=== PATIENT | female | born 1950 | race Caucasian/White ===

== ENCOUNTER 2021-01-27 11:58 | Observation (INO) | payer MEDICARE, OTHER, SELFPAY ==
[2021-01-27] VITALS (10 sets, daily range): BP systolic 118–164; BP diastolic 66–75; PULSE 62–76; RESP 16–22; TEMP 36.4–36.9; O2SAT 95–97; BMI 27.1; BMI 25.1
--- NOTE | 2021-01-27 12:47 | EKG12_ITS ---
Test Reason : CP Blood Pressure : / mmHG Vent. Rate : 069 BPM Atrial Rate : 069 BPM P-R Int : 160 ms QRS Dur : 088 ms QT Int : 396 ms P-R-T Axes : 032 -15 089 degrees QTc Int : 424 ms Normal sinus rhythm Left ventricular hypertrophy with repolarization abnormality Abnormal ECG Confirmed by JOSE HOYOS, NERISSA ([id number]), sound editor SHANNAN QUINONEZ ([id number]) on 01/28/2021 8:57:24 AM Referred By: Confirmed By:NERISSA GARCIA MD
--- NOTE | 2021-01-27 12:55 | RAD_ITS ---
STUDY: X-RAY CHEST REASON FOR EXAM: Female, 70 years old. Chest pain TECHNIQUE: Single AP portable view of the chest. COMPARISON: None. FINDINGS: EKG electrodes are seen. The lungs are clear and expanded. There is no demonstrated pleural abnormality. Normal size heart. Normal mediastinum and mariaa. Normal visualized pulmonary arteries. There is atherosclerotic calcification of the aortic arch with tortuosity. Normal visualized thoracic spine. Normal visualized ribs, clavicles, and shoulders. There is no demonstrated abnormality of the visualized soft tissue structures of the upper abdomen. RAD/Chest 1 View (Portable) IMPRESSION: The lungs are clear. Electronically Signed: Alexey Kelly MD at 13:06 EDT , Service support ,
[2021-01-27 13:03] LABS: Absolute Lymphocyte Count 1.55 X10^3/uL (0.83-4.51); Absolute Neutrophil Count 5.3 X10^3/uL (2.0-7.7); Basophil# 0.02 X10^3/uL; Basophil% 0.3 % (0-1); Eosinophil# 0.29 X10^3/uL; Eosinophils% 3.8 % (0-5); Hematocrit 43.4 % (37-47); Hemoglobin 14.2 g/dL (12.0-15.0); Lymphocyte # 1.55 X10^3/ul (0.83-4.51); Lymphocyte % 20.1 % (19-41); Mean Corp Hgb Conc 32.7 g/dL (32-36); Mean Corpuscular Hgb 31.1 pg (27.0-32.0); Mean Corpuscular Volume 95.2 fL (81-99); Mean Platelet Vol. 10.1 fl (6.2-12.0); Monocyte% 6.5 % (0-10); NRBC Flagged by Analyzer 0 % (0-5); Neutrophil # 5.31 X10^3/uL (2.7-7.7); Neutrophil % 68.9 % (47-70); Platelet Count 414 K/mm3 (150-450); RBC Distribution Width CV 12.2 % (11.6-14.6); RBC Distribution Width SD 42.5 fl (35.1-43.9); Red Blood Count 4.56 M/mm3 (4.2-5.4); White Blood Count 7.7 K/mm3 (4.4-11.0)
--- NOTE | 2021-01-27 13:15 | EDS_ITS ---
HPI History of Present Illness Chief Complaint: Chest Pain Informant: patient and spouse/S.O. Narrative Narrative: Patient was out raking the yard of [employer]. She states she felt normal when she went out there. While she was raking she got a feeling on the right side of her chest just right of the sternum. She states it felt like somebody was standing on her. She got lightheaded but did not fall. She was a little short of breath. She was nauseated but did not quite throw up. She was slightly diaphoretic. She still has a little discomfort there but the other symptoms are gone. She denies ever having this before. She did have a stress test but it was approximately 18 years ago. No family history of heart disease. She has never been a smoker. She does have high blood pressure and cholesterol. Patient did drive to [place] and back about 2 weeks ago but no other known history for pulmonary embolus. She has no leg pain or swelling. She has never had back pain. [facility] Medical History (Updated 01/27/21 @ 16:15 by CAROL Hutchinson) Depression Hyperlipidemia Hypertension Multiple sclerosis Overactive bladder Home Medications acetaminophen 1,000 mg PO QHS 01/27/21 [History Last Taken 01/26/21] ergocalciferol (vitamin D2) 1,250 mcg PO SUWE 01/27/21 [History Last Taken 01/25/21] fenofibrate 160 mg PO DAILY 01/27/21 [History Last Taken 01/27/21] gabapentin 300 mg PO BID 01/27/21 [History Last Taken 01/27/21] levothyroxine 100 mcg PO DAILY 01/27/21 [History Last Taken 01/27/21] losartan 25 mg PO DAILY 01/27/21 [History Last Taken 01/26/21] oxybutynin chloride 5 mg PO DAILY 01/27/21 [History Last Taken 01/26/21] venlafaxine 150 mg PO DAILY 01/27/21 [History Last Taken 01/27/21] Allergy/AdvReac Type Severity Reaction Status Date / Time No Known Allergies Allergy Verified 01/27/21 12:04 Surgical History (Updated 01/27/21 @ 16:13 by CAROL Hutchinson) History of appendectomy History of hysterectomy History of left hip hemiarthroplasty History of tonsillectomy and adenoidectomy Social History (Updated 01/27/21 @ 16:13 by Karolina Neri CARB[facility] GRINDER-C) Smoking Status: Never smoker alcohol intake: current alcohol intake frequency: 0-2 drinks per day Alcohol type: beer substance use type: does not use ROS ROS ED Constitutional Constitutional ED: Denies fever(s) Eyes Eyes: Denies change in vision ENT ENT ED: Denies rhinorrhea or sore throat Cardiovascular Cardiovascular: Reports as per HPI and chest pain; Denies palpitations Respiratory/Chest Respiratory/Chest: Reports dyspnea; Denies cough or sputum Gastrointestinal Gastrointestinal: Reports nausea; Denies abdominal pain or vomiting Genitourinary Genitourinary ED: Denies dysuria or hematuria Musculoskeletal Musculoskeletal: Denies arthralgias or myalgias Neurologic Neurologic: Denies headache(s) or weakness Psychiatric Psychiatric: Denies depression Endocrine Endocrinology: Denies polydipsia Hematologic/Lymphatic Hematologic/Lymphatic: Denies easy bleeding or easy bruising Allergic/Immunologic Allergic/Immunologic ED: Denies urticaria EXAM Physical Exam Const Vital Signs: 01/27/21 12:01 01/27/21 13:37 01/27/21 13:39 Temperature 98.5 F Temperature Source Temporal Pulse Rate 72 67 67 Respiratory Rate 22 H 18 Blood Pressure 164/75 H 155/74 H Blood Pressure Mean 104 Pulse Ox 95 97 Oxygen Delivery Method Room Air Room Air 01/27/21 13:43 01/27/21 14:21 01/27/21 16:49 Temperature Temperature Source Pulse Rate 73 64 66 Respiratory Rate 19 H 19 H Blood Pressure 118/67 126/67 H 137/71 H Blood Pressure Mean 86 93 Pulse Ox 96 97 Oxygen Delivery Method Room Air Room Air Positive well nourished and well developed General Appearance ED: well developed and NAD HEENT normocephalic and atraumatic Eyes PERRL and EOMs intact bilaterally Neck no lymphadenopathy and supple Chest Wall inspection of chest normal Chest Narrative: She does have mild tenderness but it does not fully reproduce symptoms. No skin changes. Chest: tenderness Resp normal respiratory effort Resp Narrative: No pain with a deep breath. Effort and Inspection: Negative for pain with movement Auscultation: Negative for rales, rhonchi or wheezes Cardio regular rate and regular rhythm GI normal to inspection, nondistended, normoactive bowel sounds, soft to palpation and non-tender Back/Spine no CVA tenderness Extremity normal to inspection Extremity Narrative: There is no swelling edema tenderness or distended veins. No asymmetry. She has excellent and equal pulses at both posterior tibial and radial pulses. General Extremety ED: Negative for edema, pulses abnormal or tenderness General Extremity: Negative for edema or pulses abnormal Neuro oriented x3 Sensorium / Orientation: awake and alert Psych Psych Narrative: Mild flat affect. Skin no rashes or lesions noted Heart Score History: Highly Suspicious ECG: Nonspecific Repolarization Age: >/= 65 years Risk Factors: 1 or 2 Risk Factors Troponin: </= Normal Limit Score: 6 MDM MDM MDM Narrative Medical decision making narrative: Including CBC and troponin are negative. D- dimer was negative. Electrolytes show mild elevation in the creatinine but the patient is given IV fluids. I went and talked to the patient. She was feeling better after nitro. At this point her states that her words were slurred when this happened. This was not shared originally. When I asked him to describe this more he stated that paramedics would ask her questions and she would take longer than normal to answer. The answers were, in fact, clear and correct though. Therefore I do not think this is slurring of the words. He states that she was not pale but she did look like she might almost pass out. He verified she has never had symptoms like this before. With this possible neurologic episode and the pain we did scan her chest. There is no sign of dissection. Her D-dimer was negative already but we were looking for possible other findings. CT of her head was also negative. Patient does have a high heart score. She gets 2 points for a very concerning history of chest pain nausea diaphoresis and dyspnea. She has nonspecific EKG changes with slight repolarization abnormalities. She has a history of cholesterol and high blood pressure even though she is not on meds for cholesterol. She is also over the age of 65. I have paged the hospitalist to discuss admission. Lab Data Attestation: I reviewed the patient's lab results. Labs: Laboratory Results - last 24 hr 01/27/21 01/27/21 01/27/21 13:04 Unknown Unknown WBC 7.7 RBC 4.56 Hgb 14.2 Hct 43.4 MCV 95.2 MCH 31.1 MCHC 32.7 RDW Std Deviation 42.5 RDW Coeff of Roberto 12.2 Plt Count 414 MPV 10.1 Immature Gran % (Auto) 0.400 Neut % (Auto) 68.9 Lymph % (Auto) 20.1 [place] % (Auto) 6.5 Eos % (Auto) 3.8 Baso % (Auto) 0.3 Absolute Neuts (auto) 5.3 Absolute Lymphs (auto) 1.55 Nucleated RBC % 0 D-Dimer Quant (PE/DVT) 0.46 Sodium 140 Potassium 3.6 Chloride 105 Carbon Dioxide 27.0 Anion Gap 8 BUN 20 H Creatinine 1.44 H Estim Creat Clear Calc 28.34 Est GFR (MDRD) Af Amer 46 L Est GFR (MDRD) Non-Af 38 L BUN/Creatinine Ratio 13.9 Glucose 95 Calcium 9.8 Troponin I High Sens 5 Radiography Diagnostic Testing: Clinical Impression(s) from Imaging Studies Chest X-Ray 01/27/21 12:55 IMPRESSION: The lungs are clear. Electronically Signed: Alexey Kelly MD at 13:06 EDT , Service support , Brain CT 01/27/21 14:49 IMPRESSION: Chronic involutional changes of the brain. Electronically Signed: Alexey Kelly MD at 15:28 EDT , Service support , Chest CTA 01/27/21 15:04 IMPRESSION: Hyperinflation. Emphysematous changes. Linear scarring at the lung bases. Electronically Signed: Alexey Kelly MD at 15:30 EDT , Service support , EKG Initial EKG: Comments: EKG done for chest pain read by me shows normal sinus rhythm with overall rate of 69. Mild LVH change. No acute ST elevation or depression. NM interval, QRS duration and QTc are normal. I looked and found no old EKG for comparison. Discharge Plan Dx/Rx/DC Orders Clinical Impression: Chest pain Disposition Disposition: Acute Care Hospital [facility]
[2021-01-27 13:21] LABS: Anion Gap 8 (5-15); BUN 20 mg/dL (7-18); BUN/Creat Ratio 13.9 RATIO (10-20); Calcium,Total 9.8 mg/dL (8.5-10.1); Chloride 105 mmol/L (98-107); Creatinine, Serum 1.44 mg/dL (0.55-1.02); EST Glomerular Filtration Rate 38 mL/min (>60); Est Glom Filt Rate - Afr Amer 46 mL/min (>60); Estimated Creatinine Clearance 28.34 ml/min; Glucose 95 mg/dL (74-106); Potassium 3.6 mmol/L (3.5-5.1); Sodium Level 140 mmol/L (136-145); Troponin-I HS 5 pg/mL (3.0-54.0)
[2021-01-27 13:22] LABS: D-Dimer Quantitative (DVT/PE) 0.46 FEU/ug/m (0.27-0.49)
[2021-01-27] MEDS: Nitroglycerin SL (ED/IMG/CATH) 0.4 MG TABLET SL ×2 (13:37→13:43)
--- NOTE | 2021-01-27 14:49 | CT_ITS ---
STUDY: CT BRAIN WITHOUT CONTRAST REASON FOR EXAM: Female, 70 years old. Confusion RADIATION DOSAGE (If Supplied By Facility): CTDIvol = ( 44.99 ) mGy, DLP = ( 796.11 ) mGycm TECHNIQUE: Transaxial CT imaging of the brain was performed without administration of intravenous contrast material. Individualized dose optimization techniques were used for this CT. COMPARISON: No relevant priors. FINDINGS: Normal soft tissue structures. Normal calvarium. Normal size ventricles and extra-axial spaces for the patient''s age. Normal white matter tracts of the cerebral hemispheres. Small lacunar infarct in the right basal ganglion. The age cannot be determined on this examination. Normal brainstem. Normal cerebellum. There is no intracranial hemorrhage. There are no findings of an acute ischemic infarction. Atherosclerotic plaque formation of the vertebral arteries and cavernous portions of the internal carotid arteries bilaterally. Normal visualized paranasal sinuses. CT/Brain/Head without Contrast IMPRESSION: Chronic involutional changes of the brain. Electronically Signed: Alexey Kelly MD at 15:28 EDT , Service support ,
--- NOTE | 2021-01-27 15:04 | CT_ITS ---
STUDY: CTA CHEST REASON FOR EXAM: Female, 70 years old. Chest pain RADIATION DOSAGE (If Supplied By Facility): CTDIvol = ( 10.74 ) mGy, DLP = ( 438.29 ) mGycm TECHNIQUE: The examination was performed with the intravenous administration of IV 100mL Isovue-370. Post-processing of the angiographic images was performed, with multiplanar reformation and 3D reconstruction. Individualized dose optimization techniques were used for this CT. COMPARISON: Comparison is made with prior chest radiograph done earlier in the day. FINDINGS: Normal enhancement of the main pulmonary artery and right and left pulmonary arteries. Normal enhancement of the bilateral peripheral pulmonary arteries. There is no demonstrated pulmonary embolism. Normal thoracic aorta and visualized great vessels. There is no demonstrated aortic dissection. There are calcifications of the coronary arteries. Normal mediastinum. Normal hilar regions. Normal visualized trachea and bronchi. The lungs are well expanded. Mild degree of bladder at the site of this changes more prominent in the upper lobes with the small subpleural blebs. Increased markings at the lung bases suggestive of scarring. Small bulla are seen at the lung bases. Normal pleura. Normal chest wall structures. There are degenerative changes of thoracic spine. Gallstones. CT/CTA Chest W/WO Contrast IMPRESSION: Hyperinflation. Emphysematous changes. Linear scarring at the lung bases. Electronically Signed: Alexey Kelly MD at 15:30 EDT , Service support ,
--- NOTE | 2021-01-27 16:10 | PCM.HP.STD ---
Documented by User: CAROL Hutchinson 01/27/21 16:31 HPI - General General Date of Admission: 01/27/21 Date of Service: 01/27/21 Chief Complaint: Chest pain HPI Narrative SOREN MCDANIELS, is a 70 F who presents with complaints of chest pain. Patient states that she was raking leaves when she began to have a pressure sensation over her right chest that felt like somebody was stepping on her chest. Patient denies sharp shooting pains or radiation to arm or jaw. Patient states that she has not had an episode like this prior. Patient reports a medical history of MS, hypertension, hyperlipidemia. Patient denies fever, chills, shortness of breath, cough, vomiting, diarrhea, constipation. Patient reports diaphoresis and nausea with onset of chest pain. [facility] Medical History (Updated 01/27/21 @ 16:15 by CAROL Hutchinson) Depression Hyperlipidemia Hypertension Multiple sclerosis Overactive bladder Home Medications acetaminophen 1,000 mg PO QHS 01/27/21 [History Last Taken 01/26/21] ergocalciferol (vitamin D2) 1,250 mcg PO SUWE 01/27/21 [History Last Taken 01/25/21] fenofibrate 160 mg PO DAILY 01/27/21 [History Last Taken 01/27/21] gabapentin 300 mg PO BID 01/27/21 [History Last Taken 01/27/21] levothyroxine 100 mcg PO DAILY 01/27/21 [History Last Taken 01/27/21] losartan 25 mg PO DAILY 01/27/21 [History Last Taken 01/26/21] oxybutynin chloride 5 mg PO DAILY 01/27/21 [History Last Taken 01/26/21] venlafaxine 150 mg PO DAILY 01/27/21 [History Last Taken 01/27/21] Allergy/AdvReac Type Severity Reaction Status Date / Time No Known Allergies Allergy Verified 01/27/21 12:04 Surgical History (Updated 01/27/21 @ 16:13 by CAROL Hutchinson) History of appendectomy History of hysterectomy History of left hip hemiarthroplasty History of tonsillectomy and adenoidectomy Social History (Updated 01/27/21 @ 16:13 by CAROL Hutchinson) Smoking Status: Never smoker alcohol intake: current alcohol intake frequency: 0-2 drinks per day Alcohol type: beer substance use type: does not use ROS Constitutional Constitutional: Denies anorexia, chills, fatigue, malaise or weakness Cardiovascular Cardiovascular: Reports chest pain and dyspnea on exertion; Denies edema, palpitations or syncope Respiratory/Chest Respiratory/Chest: Denies cough, shortness of breath at rest or shortness of breath with exertion Gastrointestinal Gastrointestinal: Reports nausea; Denies abdominal pain, constipation, diarrhea or vomiting Genitourinary Genitourinary: Denies dysuria Musculoskeletal Musculoskeletal: Denies back pain, extremity pain, joint pain or joint stiffness Integumentary Integumentary: Denies dry skin Neurologic Neurologic: Denies abnormal gait, abnormal speech, confusion or dizziness Psychiatric Psychiatric: Denies anxiety or depression Endocrine Endocrinology: Denies change in body appearance Hematologic/Lymphatic Hematologic/Lymphatic: Denies anemia, easy bleeding or easy bruising Vital Signs Vital Signs Vital Signs: 01/27/21 12:01 01/27/21 13:37 01/27/21 13:39 Temperature 98.5 F Temperature Source Temporal Pulse Rate 72 67 67 Respiratory Rate 22 H 18 Blood Pressure 164/75 H 155/74 H Blood Pressure Mean 104 Pulse Ox 95 97 Oxygen Delivery Method Room Air Room Air 01/27/21 13:43 01/27/21 14:21 Temperature Temperature Source Pulse Rate 73 64 Respiratory Rate 19 H Blood Pressure 118/67 126/67 H Blood Pressure Mean 86 Pulse Ox 96 Oxygen Delivery Method Room Air Weight Weight: 148 lb 9.465 oz Body Mass Index (BMI) 27.1 Physical Exam Const alert, oriented x3 and no apparent distress General Appearance: cooperative HEENT normocephalic and head/scalp atraumatic Eyes conjunctivae normal and no scleral icterus Neck full ROM and supple General: trachea midline Resp normal respiratory effort, normal air movement and clear to auscultation bilaterally Cardio regular rate, regular rhythm, S1 normal heart sound, S2 normal heart sound and peripheral pulses 2+ throughout GI normal to inspection, nondistended, normoactive bowel sounds, soft to palpation and non-tender Extremity normal capillary refill and no clubbing, cyanosis or edema General Extremity: no tenderness to palpation of joints or extremities Skin General Skin Exam: no breakdown and turgor normal Lesions: no lesions Rashes: no rashes Neuro oriented x3, moves all extremities, no focal motor deficits and no sensory deficits noted Speech: speech normal Motor Exam: Negative for general weakness Psych thought process normal, cooperative and affect normal Results Lab / Micro Data Result Diagrams: 01/27/21 Unknown 01/27/21 Unknown Labs: Laboratory Results - last 24 hr 01/27/21 13:04: D-Dimer Quant (PE/DVT) 0.46 01/27/21 : WBC 7.7, RBC 4.56, Hgb 14.2, Hct 43.4, MCV 95.2, MCH 31.1, MCHC 32.7, RDW Std Deviation 42.5, RDW Coeff of Roberto 12.2, Plt Count 414, MPV 10.1, Immature Gran % (Auto) 0.400, Neut % (Auto) 68.9, Lymph % (Auto) 20.1, [place] % (Auto) 6.5, Eos % (Auto) 3.8, Baso % (Auto) 0.3, Absolute Neuts (auto) 5.3, Absolute Lymphs (auto) 1.55, Nucleated RBC % 0 01/27/21 : Sodium 140, Potassium 3.6, Chloride 105, Carbon Dioxide 27.0, Anion Gap 8, BUN 20 H, Creatinine 1.44 H, Estim Creat Clear Calc 28.34, Est GFR (MDRD) Af Amer 46 L, Est GFR (MDRD) Non-Af 38 L, BUN/Creatinine Ratio 13.9, Glucose 95, Calcium 9.8, Troponin I High Sens 5 Radiology Impression Chest X-Ray 01/27/21 12:55 IMPRESSION: The lungs are clear. Electronically Signed: Alexey Kelly MD at 13:06 EDT , Service support , Brain CT 01/27/21 14:49 IMPRESSION: Chronic involutional changes of the brain. Electronically Signed: Alexey Kelly MD at 15:28 EDT , Service support , Chest CTA 01/27/21 15:04 IMPRESSION: Hyperinflation. Emphysematous changes. Linear scarring at the lung bases. Electronically Signed: Alexey Kelly MD at 15:30 EDT , Service support , Assessment & Plan Assessment/Plan (1) Chest pain: QUALIFIERS: Chest pain type: unspecified Qualified Code(s): R07.9 - Chest pain, unspecified PLAN: 1. Chest pain -Admit to PCU for cardiac monitoring. VICKI score 1 -Cardiac diet ordered, n.p.o. at midnight for pending stress test -Daily weights -Trend cardiac enzymes initial level 5 -Stress test ordered for a.m. -Oxygen per protocol -CBC, BMP, lipid profile, magnesium, phosphorus ordered for a.m. -As needed nitroglycerin ordered as well as as needed morphine and Zofran Will continue all of patient's home medications related to chronic diseases DVT prophylaxis-not indicated encourage ambulation This patient was seen by CAROL Hutchinson under the supervision of Dr. Haile. Documented by User: Dr. Minor Haile DO 01/27/21 16:38 [facility] Medical History (Updated 01/27/21 @ 16:15 by CAROL Hutchinson) Depression Hyperlipidemia Hypertension Multiple sclerosis Overactive bladder Home Medications acetaminophen 1,000 mg PO QHS 01/27/21 [History Last Taken 01/26/21] ergocalciferol (vitamin D2) 1,250 mcg PO SUWE 01/27/21 [History Last Taken 01/25/21] fenofibrate 160 mg PO DAILY 01/27/21 [History Last Taken 01/27/21] gabapentin 300 mg PO BID 01/27/21 [History Last Taken 01/27/21] levothyroxine 100 mcg PO DAILY 01/27/21 [History Last Taken 01/27/21] losartan 25 mg PO DAILY 01/27/21 [History Last Taken 01/26/21] oxybutynin chloride 5 mg PO DAILY 01/27/21 [History Last Taken 01/26/21] venlafaxine 150 mg PO DAILY 01/27/21 [History Last Taken 01/27/21] Allergy/AdvReac Type Severity Reaction Status Date / Time No Known Allergies Allergy Verified 01/27/21 12:04 Surgical History (Updated 01/27/21 @ 16:13 by Karolina Neri NP-C) History of appendectomy History of hysterectomy History of left hip hemiarthroplasty History of tonsillectomy and adenoidectomy Social History (Updated 01/27/21 @ 16:13 by Karolina Neri NP-C) Smoking Status: Never smoker alcohol intake: current alcohol intake frequency: 0-2 drinks per day Alcohol type: beer substance use type: does not use Results Lab / Micro Data Result Diagrams: 01/27/21 Unknown 01/27/21 Unknown Charges/Coding Addendum Addendum: Patient was seen and examined today independently of Bren Neri, she came to the emergency room at [facility] with complaints of substernal chest discomfort that she described as pressure-like in nature, is accompanied by nausea, it did not radiate into her jaw or down her arm. Patient states she was raking [place]ickory nuts and leaves today during the time of her discomfort. Patient states the discomfort lasted for approximately 1 hour. Patient has no history of coronary artery disease. On examination she appeared in good health and spirits, she does not appear to be in any distress. Vital signs as documented. Skin warm and dry and without overt rashes. Neck without JVD, thyroid appears normal, trachea is midline, neck is supple. Lungs clear, normal air movement was noted. Heart exam notable for regular rhythm, normal sounds and absence of murmurs, rubs or gallops. Abdomen unremarkable and without evidence of organomegaly, masses, or abdominal aortic enlargement, bowel sounds are present in all 4 quadrants, no abdominal tenderness was noted. Extremities nonedematous, no cyanosis was noted, no clubbing was noted. Neuro: Cranial nerves II through XII are grossly intact, no focal motor deficits were noted, sensation to light touch and pinprick is intact, motor exam 5/5 throughout. Psych: Patient is alert and oriented x3, she does not appear anxious or depressed, she does not appear agitated. Patient's labs were unremarkable including her troponin, EKG showed a normal sinus rhythm without evidence of injury pattern. Patient's chest x-ray was unremarkable, patient had a CTA of her chest which showed emphysematous changes with linear scarring at the lung bases. Patient will be placed in observation status on PCU, serial cardiac enzymes will be obtained, if these remain normal she will undergo a resting pharmacological nuclear stress test tomorrow. I have reviewed Bren Neri's history and physical including her medical assessment and plan of care and endorse it. Visit Charges OBSV E&M: 44100 Initial observation care L3
--- NOTE | 2021-01-27 17:12 | NURSING ---
PCU OBS YESSENIA NEWMAN
--- NOTE | 2021-01-27 17:25 | EKG12_ITS ---
Test Reason : AM EKG Blood Pressure : / mmHG Vent. Rate : 059 BPM Atrial Rate : 059 BPM P-R Int : 180 ms QRS Dur : 082 ms QT Int : 440 ms P-R-T Axes : 049 -18 123 degrees QTc Int : 435 ms Sinus bradycardia Nonspecific ST and T wave abnormality Abnormal ECG When compared with ECG of 27-JAN-2021 19:00, MANUAL COMPARISON REQUIRED, DATA IS UNCONFIRMED Confirmed by JOSE HOYOS, NERISSA ([id number]), newspaper photo editor DIONY JORGE ([id number]) on 01/29/2021 7:47:57 AM Referred By: YESSENIA Confirmed By:NERISSA GARCIA MD
[2021-01-27] MEDS: 0.9% Normal Saline 1,000 ML 75 ML IV (18:12)
--- NOTE | 2021-01-27 18:32 | EKG12_ITS ---
Test Reason : CP ADMIT Blood Pressure : / mmHG Vent. Rate : 063 BPM Atrial Rate : 063 BPM P-R Int : 180 ms QRS Dur : 080 ms QT Int : 424 ms P-R-T Axes : 030 -18 069 degrees QTc Int : 433 ms Normal sinus rhythm Nonspecific ST and T wave abnormality Abnormal ECG When compared with ECG of 27-JAN-2021 12:13, MANUAL COMPARISON REQUIRED, DATA IS UNCONFIRMED Confirmed by JOSE HOYOS, NERISSA ([id number]), film or videotape editor DIONY JORGE ([id number]) on 01/29/2021 7:48:38 AM Referred By: YESSENIA Confirmed By:NERISSA GARCIA MD
[2021-01-27 18:57] LABS: Troponin-I HS 8 pg/mL (3.0-54.0)
[2021-01-27 20:32] LABS: Troponin-I HS 7 pg/mL (3.0-54.0)
[2021-01-27] MEDS: Gabapentin 300 MG Capsule PO (20:51)
[2021-01-27] MEDS: Acetaminophen 500 MG Tablet 1000 MG PO (20:51)
[2021-01-28] VITALS (8 sets, daily range): BP systolic 150–165; BP diastolic 67–78; PULSE 55–76; RESP 16–18; TEMP 36.5–36.8; O2SAT 95–96
--- NOTE | 2021-01-28 01:54 | PCS.PANDOC ---
PANDEMIC DOCUMENTATION INITIATED: Date: 11/24/2020 Time: 190
[2021-01-28] MEDS: Levothyroxine 100 MCG Tablet PO (05:44)
[2021-01-28] MEDS: Losartan Potassium 25 MG Tablet PO (05:44)
[2021-01-28 06:39] LABS: Absolute Lymphocyte Count 1.65 X10^3/uL (0.83-4.51); Basophil# 0.02 X10^3/uL; Basophil% 0.4 % (0-1); Eosinophil# 0.26 X10^3/uL; Eosinophils% 4.7 % (0-5); Hematocrit 36.5 % (37-47); Hemoglobin 12.2 g/dL (12.0-15.0); Lymphocyte # 1.65 X10^3/ul (0.83-4.51); Lymphocyte % 30.1 % (19-41); Mean Corp Hgb Conc 33.4 g/dL (32-36); Mean Corpuscular Hgb 31.4 pg (27.0-32.0); Mean Corpuscular Volume 93.8 fL (81-99); Mean Platelet Vol. 9.6 fl (6.2-12.0); Monocyte% 9.1 % (0-10); NRBC Flagged by Analyzer 0 % (0-5); Neutrophil # 3.04 X10^3/uL (2.7-7.7); Neutrophil % 55.3 % (47-70); Platelet Count 333 K/mm3 (150-450); RBC Distribution Width CV 12.4 % (11.6-14.6); RBC Distribution Width SD 43.1 fl (35.1-43.9); Red Blood Count 3.89 M/mm3 (4.2-5.4); White Blood Count 5.5 K/mm3 (4.4-11.0)
[2021-01-28 07:26] LABS: Anion Gap 7 (5-15); BUN 15 mg/dL (7-18); Calcium,Total 8.2 mg/dL (8.5-10.1); Chloride 112 mmol/L (98-107); Cholesterol 153 mg/dL (200); EST Glomerular Filtration Rate 58 mL/min (>60); Est Glom Filt Rate - Afr Amer 70 mL/min (>60); Estimated Creatinine Clearance 40.81 ml/min; Glucose 81 mg/dL (74-106); High Density Lipoprotein 51 mg/dL; Magnesium 2.3 mg/dL (1.6-2.6); Phosphorus 2.2 mg/dL (2.5-4.9); Potassium 3.5 mmol/L (3.5-5.1); Sodium Level 143 mmol/L (136-145); Triglycerides 69 mg/dL; Very Low Density Lipoprotein 14 mg/dL (5-40)
[2021-01-28] MEDS: Fenofibrate 145 MG Tablet PO (10:43)
[2021-01-28] MEDS: Tolterodine Tartrate 2 MG CAP.SA PO (10:43)
[2021-01-28] MEDS: Venlafaxine XR 150 MG Capsule PO (10:43)
[2021-01-28] MEDS: Gabapentin 300 MG Capsule PO (10:43)
[2021-01-28] MEDS: Ergocalciferol 1.25 MG (50, 000 UNIT) Capsule PO (10:43)
--- NOTE | 2021-01-28 13:18 | STRESSREP_ITS ---
Stress Test Report Exercise stress test. 70-year-old lady with a history of chest pain. Resting EKG demonstrates normal sinus rhythm with a rate of 60 bpm normal intervals are noted resting blood pressure is 152/78 mmHg. Patient exercised according to regular Momo protocol for total duration of 6 minutes completing stage II of the Momo protocol maximal heart rate attained was 122 bpm which was 81% of max infected heart rate the maximum workload was 7 metabolic equivalents. At rest there were no ST or T wave changes noted suggest ischemia and at peak e xercise upsloping ST changes were noted with did not meet the criteria for ischemia. No clinical angina was noted. The peak blood pressure was 172/76 mmHg the chest was terminated due to shortness of breath. Myocardial perfusion protocol. 13.3 mCi of technetium 99m sestamibi was injected at rest. Patient exercised according to regular Momo protocol for total duration of 6 minutes and at peak exercise 32.6 mCi of technetium 99m sestamibi was injected stress images were obtained stress and rest images were reconstructed in comparing the short axis vertical long horizontal long axis. Gated images were also obtained to Perfusion SPECT analysis: Review of the stress images demonstrate normal uptake of tracer noted in all areas of the myocardium. The resting images similarly demonstrate normal uptake of tracer noted in all areas of the myocardium. No areas of reversibility are noted suggest ischemia no previous infarct is noted. Gated SPECT analysis: The gated ejection fraction is 68%. Conclusion: Normal exercise myocardial perfusion stress test at a moderate workload. No clinical angina noted. Preserved ejection fraction.
--- NOTE | 2021-01-28 14:33 | PCM.DC ---
Discharge Instructions Diet Discharge Diet: Low fat / Low cholesterol Dressing / Incision Call your doctor if you observe: Shortness of breath, Fainting spells, Chest pain and Increased palpitations (irregular heartbeat) Follow Up Care Please Follow Up With: NOT,DEFINED When: See your PCP in 1-2 weeks Test Results: Test results from this visit will be discussed in further detail at your follow-up appointment, if applicable. Discharge Plan Admission Admit Date/Time: 01/27/21 16:02 Primary Reason for Your Visit: Chest Pain Attending Provider: Diann Morris Primary Care Provider: Care Physician,Teresa Primary Discharge Orders/Prescriptions Prescriptions: Continued venlafaxine 150 mg capsule,extended release 24hr 150 mg PO DAILY RF: 0 levothyroxine 100 mcg tablet 100 mcg PO DAILY RF: 0 losartan 25 mg tablet 25 mg PO DAILY RF: 0 oxybutynin chloride 5 mg tablet extended release 24hr 5 mg PO DAILY RF: 0 gabapentin 300 mg capsule 300 mg PO BID RF: 0 fenofibrate 160 mg tablet 160 mg PO DAILY RF: 0 acetaminophen 500 mg Tablet 1,000 mg PO QHS RF: 0 ergocalciferol (vitamin D2) 1,250 mcg (50,000 unit) capsule 1,250 mcg PO SUWE RF: 0 Referrals / Follow Up: Care Physician,No Primary [Primary Care Provider] - Disposition Disposition (needs filled in before D/C Order can be placed): Home, Self Care
--- NOTE | 2021-01-28 14:36 | DS.PCM_ITS ---
Documented by User: CAROL Hutchinson 01/28/21 14:38 Providers Date of Admission: 01/27/21 Primary Care Physician: No Primary Care Phys Reason For Visit: CHEST PAIN Diagnosis Discharge Diagnosis (1) Chest pain: Status: Acute Code(s): R07.9 - Chest pain, unspecified Qualifiers: Chest pain type: unspecified Qualified Code(s): R07.9 - Chest pain, unspecified Medications at Discharge Home Medications acetaminophen 1,000 mg PO QHS 01/27/21 ergocalciferol (vitamin D2) 1,250 mcg PO SUWE 01/27/21 fenofibrate 160 mg PO DAILY 01/27/21 gabapentin 300 mg PO BID 01/27/21 levothyroxine 100 mcg PO DAILY 01/27/21 losartan 25 mg PO DAILY 01/27/21 oxybutynin chloride 5 mg PO DAILY 01/27/21 venlafaxine 150 mg PO DAILY 01/27/21 Hospital Course Operations None Procedures EKG and Stress test Summary of Care Provided Minutes Spent on Discharge: 20 Hospital Course: Patient is a 70-year-old female who presented 01/27/2021 with chest pain while raking leaves. Patient states that it felt more like a pressure over her right-sided chest and it did not radiate to her arm or her neck. Patient underwent stress test this morning which was normal. Patient has not had subsequent episodes of chest pain since arrival to hospital. Cardiac enzymes x3 negative, lipid panel within normal limits. Patient will be discharged home with instructions to follow-up with her PCP in 1 to 2 weeks. Physical Exam Const alert, oriented x3 and no apparent distress General Appearance: cooperative HEENT normocephalic and head/scalp atraumatic Eyes conjunctivae normal and no scleral icterus Neck full ROM and supple General: trachea midline Resp normal respiratory effort, normal air movement and clear to auscultation bilaterally Cardio regular rate, regular rhythm, S1 normal heart sound, S2 normal heart sound and peripheral pulses 2+ throughout GI normal to inspection, nondistended, normoactive bowel sounds, soft to palpation and non-tender Extremity normal capillary refill and no clubbing, cyanosis or edema General Extremity: no tenderness to palpation of joints or extremities Skin General Skin Exam: no breakdown and turgor normal Lesions: no lesions Rashes: no rashes Neuro oriented x3, moves all extremities, no focal motor deficits and no sensory deficits noted Speech: speech normal Motor Exam: Negative for general weakness Psych thought process normal, cooperative and affect normal Weight / BMI Weight Weight: 143 lb 8.335 oz Body Mass Index (BMI) 25.1 ABG / Lab / Microbiology Data Result Diagrams: 01/28/21 06:14 01/28/21 06:14 Laboratory: Laboratory Results - last 24 hr 01/27/21 18:25: Troponin I High Sens 8 01/27/21 19:50: Troponin I High Sens 7 01/28/21 06:14: WBC 5.5, RBC 3.89 L, Hgb 12.2, Hct 36.5 L, MCV 93.8, MCH 31.4, MCHC 33.4, RDW Std Deviation 43.1, RDW Coeff of Roberto 12.4, Plt Count 333, MPV 9.6, Immature Gran % (Auto) 0.400, Neut % (Auto) 55.3, Lymph % (Auto) 30.1, [place] % (Auto) 9.1, Eos % (Auto) 4.7, Baso % (Auto) 0.4, Absolute Neuts (auto) 3.0, Absolute Lymphs (auto) 1.65, Nucleated RBC % 0 01/28/21 06:14: Sodium 143, Potassium 3.5, Chloride 112 H, Carbon Dioxide 24.0, Anion Gap 7, BUN 15, Creatinine 1.00, Estim Creat Clear Calc 40.81, Est GFR (MDRD) Af Amer 70, Est GFR (MDRD) Non-Af 58 L, BUN/Creatinine Ratio 15.0, Glucose 81, Calcium 8.2 L, Phosphorus 2.2 L, Magnesium 2.3, Triglycerides 69, Cholesterol 153, LDL Cholesterol 88, VLDL Cholesterol 14, HDL Cholesterol 51 Radiography Diagnostic Testing: Radiology Impression Brain CT 01/27/21 14:49 IMPRESSION: Chronic involutional changes of the brain. Electronically Signed: Alexey Kelly MD at 15:28 EDT , Service support , Chest CTA 01/27/21 15:04 IMPRESSION: Hyperinflation. Emphysematous changes. Linear scarring at the lung bases. Electronically Signed: Alexey Kelly MD at 15:30 EDT , Service support , D/C Instructions Discharge Diet: Low fat / Low cholesterol Call your doctor if you observe: Shortness of breath, Fainting spells, Chest pain and Increased palpitations (irregular heartbeat) Please Follow Up With: NOT,DEFINED When: See your PCP in 1-2 weeks Meaningful Use Info Meaningful Use Diagnoses (Choose all that apply): None applicable Discharge Plan Admission Admit Date/Time: 01/27/21 16:02 Primary Reason for Your Visit: Chest Pain Attending Provider: Diann Morris Primary Care Provider: Care Physician,Teresa Primary Discharge Orders/Prescriptions Prescriptions: Continued venlafaxine 150 mg capsule,extended release 24hr 150 mg PO DAILY RF: 0 levothyroxine 100 mcg tablet 100 mcg PO DAILY RF: 0 losartan 25 mg tablet 25 mg PO DAILY RF: 0 oxybutynin chloride 5 mg tablet extended release 24hr 5 mg PO DAILY RF: 0 gabapentin 300 mg capsule 300 mg PO BID RF: 0 fenofibrate 160 mg tablet 160 mg PO DAILY RF: 0 acetaminophen 500 mg Tablet 1,000 mg PO QHS RF: 0 ergocalciferol (vitamin D2) 1,250 mcg (50,000 unit) capsule 1,250 mcg PO SUWE RF: 0 Referrals / Follow Up: Care Physician,No Primary [Primary Care Provider] - Disposition Disposition (needs filled in before D/C Order can be placed): Home, Self Care Documented by User: Dr. Diann Morris MD 01/28/21 15:06 Providers Date of Admission: 01/27/21 Reason For Visit: CHEST PAIN Medications at Discharge Home Medications acetaminophen 1,000 mg PO QHS 01/27/21 ergocalciferol (vitamin D2) 1,250 mcg PO SUWE 01/27/21 fenofibrate 160 mg PO DAILY 01/27/21 gabapentin 300 mg PO BID 01/27/21 levothyroxine 100 mcg PO DAILY 01/27/21 losartan 25 mg PO DAILY 01/27/21 oxybutynin chloride 5 mg PO DAILY 01/27/21 venlafaxine 150 mg PO DAILY 01/27/21 ABG / Lab / Microbiology Data Result Diagrams: 01/28/21 06:14 01/28/21 06:14 Discharge Plan Admission Admit Date/Time: 01/27/21 16:02 Primary Reason for Your Visit: Chest Pain Attending Provider: Diann Morris Primary Care Provider: Care Physician,Teresa Primary Discharge Orders/Prescriptions Prescriptions: Continued venlafaxine 150 mg capsule,extended release 24hr 150 mg PO DAILY RF: 0 levothyroxine 100 mcg tablet 100 mcg PO DAILY RF: 0 losartan 25 mg tablet 25 mg PO DAILY RF: 0 oxybutynin chloride 5 mg tablet extended release 24hr 5 mg PO DAILY RF: 0 gabapentin 300 mg capsule 300 mg PO BID RF: 0 fenofibrate 160 mg tablet 160 mg PO DAILY RF: 0 acetaminophen 500 mg Tablet 1,000 mg PO QHS RF: 0 ergocalciferol (vitamin D2) 1,250 mcg (50,000 unit) capsule 1,250 mcg PO SUWE RF: 0 Referrals / Follow Up: Care Physician,No Primary [Primary Care Provider] - Disposition Disposition (needs filled in before D/C Order can be placed): Home, Self Care Charges/Coding Addendum Addendum: Patient seen by Karolina MEDINA under my supervision Patient is a 70 y/o female with a PMH as outlined who was admitted via the ED with a complaint of chest pain which started when she was raking leaves. Chest pain was right sided, and she felt like someone was standing on her chest.SHe denied any such past history of chest pain, and denied any cardiac history. SHe was admitted and managed for chest pain to rule out ACS. EKG showed no acute ST changes. She had a stress test on 01/28/2021 which was negative for any evidence of ischemia. Patient remained stable, chest pain resolved, and she was discharged home on 01/28/2021, to follow up with her PCP in 1-2 weeks. Patient was seen and examined prior to discharge. She had no complaints and felt much better. Review of systems was otherwise negative. Labs and vitals reviewed, home meds reviewed and reconciled. O/E: Const alert, oriented x3 and no apparent distress General Appearance: cooperative HEENT normocephalic and head/scalp atraumatic Eyes conjunctivae normal and no scleral icterus Neck full ROM and supple General: trachea midline Resp normal respiratory effort, normal air movement and clear to auscultation bilaterally Cardio regular rate, regular rhythm, S1 normal heart sound, S2 normal heart sound and peripheral pulses 2+ throughout GI normal to inspection, nondistended, normoactive bowel sounds, soft to palpation and non-tender Extremity normal capillary refill and no clubbing, cyanosis or edema General Extremity: no tenderness to palpation of joints or extremities Skin General Skin Exam: no breakdown and turgor normal Lesions: no lesions Rashes: no rashes Neuro oriented x3, moves all extremities, no focal motor deficits and no sensory deficits noted Speech: speech normal Motor Exam: Negative for general weakness Psych thought process normal, cooperative and affect normal Plan is for discharge home today. Rest as per Karolina Neri STRUCTURAL DESIGN ENGINEER-C's note, which I have reviewed and endorsed. Visit Charges OBSV E&M: 09411 Observation care discharge
--- NOTE | 2021-01-28 15:00 | PHA.DC.MR ---
Pharmacy Service has performed discharge medication reconciliation for this patient. The patient's discharge medication list was reviewed for discrepancies and discrepancies were resolved. Home Medications acetaminophen 1,000 mg PO QHS 01/27/21 ergocalciferol (vitamin D2) 1,250 mcg PO SUWE 01/27/21 fenofibrate 160 mg PO DAILY 01/27/21 gabapentin 300 mg PO BID 01/27/21 levothyroxine 100 mcg PO DAILY 01/27/21 losartan 25 mg PO DAILY 01/27/21 oxybutynin chloride 5 mg PO DAILY 01/27/21 venlafaxine 150 mg PO DAILY 01/27/21
== END 2021-01-28 14:36 | disposition home or self-care (01) ==
LOC: ED 17:14 → PCU 17:24
PROVIDERS: Nurse Practitioner Family; Admitting Provider Internal Medicine; Emergency Provider Emergency Medicine; Visit Provider Student in an Organized Health Care Education/Training Program
DX: R07.89 Other chest pain (principal); R06.02 Shortness of breath; R11.0 Nausea; E78.5 Hyperlipidemia, unspecified; G35 Multiple sclerosis; I10 Essential (primary) hypertension; N32.81 Overactive bladder; F32.A Depression, unspecified; Z79.899 Other long term (current) drug therapy; Z79.890 Hormone replacement therapy
CPT/HCPCS: 36415; 70450; 71045; 71275; 78452; 80048; 80061; 83735; 84100; 84484; 85025; 85379; 93005; 93017; 96360; 96361; 99218; 99284; A9500; J7030; J7040; Q9967; A4216; G0378

== ENCOUNTER → 2021-03-11 10:23 | Outpatient (CLI) | payer MEDICARE, OTHER, SELFPAY ==
[2021-03-11 11:12] LABS: Absolute Lymphocyte Count 1.75 X10^3/uL (0.83-4.51); Absolute Neutrophil Count 4.8 X10^3/uL (2.0-7.7); Basophil# 0.04 X10^3/uL; Basophil% 0.5 % (0-1); Eosinophil# 0.24 X10^3/uL; Eosinophils% 3.3 % (0-5); Hematocrit 40.6 % (37-47); Hemoglobin 13.4 g/dL (12.0-15.0); Lymphocyte # 1.75 X10^3/ul (0.83-4.51); Mean Corpuscular Hgb 31.4 pg (27.0-32.0); Mean Corpuscular Volume 95.1 fL (81-99); Mean Platelet Vol. 9.5 fl (6.2-12.0); Monocyte# 0.49 X10^3/uL; Monocyte% 6.7 % (0-10); NRBC Flagged by Analyzer 0 % (0-5); Neutrophil # 4.75 X10^3/uL (2.7-7.7); Neutrophil % 65.2 % (47-70); Platelet Count 397 K/mm3 (150-450); RBC Distribution Width CV 12.6 % (11.6-14.6); RBC Distribution Width SD 43.7 fl (35.1-43.9); Red Blood Count 4.27 M/mm3 (4.2-5.4); White Blood Count 7.3 K/mm3 (4.4-11.0)
[2021-03-11 11:35] LABS: Anion Gap 8 (5-15); BUN 16 mg/dL (7-18); Chloride 108 mmol/L (98-107); Creatinine, Serum 1.14 mg/dL (0.55-1.02); EST Glomerular Filtration Rate 50 mL/min (>60); Est Glom Filt Rate - Afr Amer 60 mL/min (>60); Glucose 91 mg/dL (74-106); Potassium 4.2 mmol/L (3.5-5.1); Sodium Level 142 mmol/L (136-145)
== END ==
PROVIDERS: PCP Family Medicine; Referring Provider Internal Medicine Cardiovascular Disease; Visit Provider Internal Medicine Cardiovascular Disease
DX: R07.9 Chest pain, unspecified (principal); G35 Multiple sclerosis
CPT/HCPCS: 36415; 80048; 85025

== ENCOUNTER → 2021-03-13 07:51 | Outpatient (CLI) | payer MEDICARE, OTHER, SELFPAY ==
--- NOTE | 2021-03-13 07:52 | ECHOD_ITS ---
Reason For Study: CHEST PAIN Procedure This was a 2D Doppler, Color Flow transthoracic echocardiogram. Exam performed in department. Left Ventricle Normal LV size. Left ventricular systolic function is normal. The estimated ejection fraction is 60 %. Stage 1 diastolic dysfunction. No regional wall motion abnormalities noted. Right Ventricle Normal RV size. Normal systolic function. Atria Normal left atrium. Normal right atrium. Mitral Valve Normal mitral valve. Tricuspid Valve Normal tricuspid valve. Mild (1+) tricuspid valve insufficiency. Pulmonary artery systolic pressure is 38 mmHg. Aortic Valve Normal aortic valve. Trisinus/trileaflet aortic valve. Mild (1+) aortic valve insufficiency. Pulmonic Valve Normal pulmonic valve. Great Vessels Normal aortic root. The pulmonary artery is normal size. Normal inferior vena cava. Pericardium/Pleural No pericardial effusion. MMode/2D Measurements & Calculations LVIDd: 4.3 cm IVSd: 0.87 cm Ao root diam: 3.3 cm LVIDs: 2.8 cm LVPWd: 0.92 cm RVDd: 2.8 cm FS: 35.5 % LAV(MOD-bp): 34.5 ml LA A4 area: 14.8 cm2 LA dimension(2D): 3.9 cm LAV(MOD-bp) Indexed: 20.8 ml/m2 LAV(MOD-sp2): 31.3 ml LAV(MOD-sp4): 31.3 ml RA A4 area: 12.9 cm2 Doppler Measurements & Calculations MV E max merlin: 88.0 cm/sec Lat Peak E' Merlin: 8.3 cm/sec Med Peak E' Merlin: 6.3 cm/sec MV A max merlin: 100.5 cm/sec E/E' lat: 10.6 E/E' med: 14.1 MV E/A: 0.88 Ao V2 max: 155.4 cm/sec AI max merlin: 368.5 cm/sec LV V1 max: 109.6 cm/sec Ao max P.7 mmHg AI max P.6 mmHg LV V1 max P.8 mmHg Ao V2 mean: 107.2 cm/sec AI dec slope: 157.8 cm/sec2 LV V1 mean P.3 mmHg Ao mean P.1 mmHg AI P1/2t: 684.0 msec LV V1 mean: 72.8 cm/sec Ao V2 VTI: 37.7 cm LV V1 VTI: 26.6 cm TR max merlin: 294.8 cm/sec TR max P.8 mmHg ECHO/Echo Complete Interpretation Summary Normal LV size. Left ventricular systolic function is normal. The estimated ejection fraction is 60 %. Stage 1 diastolic dysfunction. Pulmonary artery systolic pressure is 38 mmHg. Mild (1+) aortic valve insufficiency. Structurally normal valves. Ordering Physician: Albert Martínez Referring Physician: KEYONNA CAMARENA Performed By: Coni Malone, RDCS, RVT
== END ==
PROVIDERS: PCP Family Medicine; Referring Provider Internal Medicine Cardiovascular Disease; Visit Provider Internal Medicine Cardiovascular Disease
DX: R07.9 Chest pain, unspecified (principal); R06.00 Dyspnea, unspecified; G35 Multiple sclerosis; I10 Essential (primary) hypertension; E78.5 Hyperlipidemia, unspecified
CPT/HCPCS: 93306

== ENCOUNTER 2021-03-16 14:29 | Observation (INO) | payer MEDICARE, OTHER, SELFPAY ==
[2021-03-13 08:04] VITALS: BMI 26.2
[2021-03-16] VITALS (7 sets, daily range): BP systolic 123–153; BP diastolic 55–60; PULSE 49–62; RESP 12–18; TEMP 36.7–37.1; O2SAT 93–97; BMI 25.9
--- NOTE | 2021-03-16 09:29 | CL.D_ITS ---
Patient Name: SOREN MCDANIELS Study Date: 03/16/2021 Performing: Albert Martínez MD Ht: 62 inches 157 cm : 1950 Wt: 143.5 lbs 65 kg Age: 70 Gender: female BSA: 1.66 PROCEDURE(S) PERFORMED [id number]-DAT/COR/LV CLINICAL PROFILE AND INDICATIONS Indications: Suspected CAD Heart Failure: None Stress/Imaging Date: 01/28/2021tress Test with SPECT MPI: Negative CAD Presentations: Unstable angina. CONCLUSIONS High grade stenosis noted of the Diagonal RECOMMENDATIONS Referred for immediate PCI DESCRIPTION OF PROCEDURE The patient arrived to the procedure lab. The risks and benefits of the procedure as well as a full d escription of our services here and current unavailability of surgical backup were fully explained to the patient and/or their significant other prior to the catheterization. The Timeout was completed, verifying the correct patient and procedure. The patient's procedural site was prepped and draped in the usual fashion. Local anesthetic was given subcutaneously to right radial region with Lidocaine 2% . Using a modified Seldinger technique, arterial access was obtained via the right radial artery, a 6 Fr sheath was inserted. Left Coronary Artery selective angiography was performed in multiple views u sing a 5 Fr. 4.0 [place] catheter. Right Coronary Artery selective angiography was then performed in mu ltiple views using a 5 Fr. JR 4 catheter. Left Ventriculography was performed in SOMERS projection using a 5 Fr. Pig[place] catheter. LV to AO pullback pressures were then recorded. CORONARY ANGIOGRAPHY DOMINANCE: Right Dominant LEFT HEART ASSESSMENT Left Ventricular Ejection Fraction: by LV Gram 65 % Normal LV wall motion Normal Left Ventricular systolic function LEFT MAIN: Non-obstructive LEFT ANTERIOR DESCENDING ARTERY: Mild luminal irregularities DIAGONAL 1: Proximal - 95 % Stenosis CIRCUMFLEX ARTERY: MID CIRC: 50 % Stenosis RIGHT CORONARY ARTERY: MID RCA: 40 % Stenosis COMPLICATIONS PROCEDURE MEDICATIONS Versed 1 mg IV Fentanyl 50 mcg IV Versed 1 mg IV Oxygen: 2 L/min via nasal cannula Brilinta 180 mg PO @ 03/16/2021 09:16:12 Heparin given IA 03/16/2021 09:02:34 Heparin 6000 unit(s) IV 03/16/2021 09:21:21 Verapamil 2.5mg, Ntg 100mcgs, 2000 units of Heparin given IA 03/16/2021 09:02:34 SUMMARY OF HEMODYNAMIC DATA Time AIR REST ECG 08:08:26 ECG 08:39:42 AO 146/67 (100) SA 09:04:11 LV 159/18, 25 09:12:24 LV 149/17, 27 09:12:32 LV 156/23, 39 09:13:08 LV 152/21, 40 09:13:15 LVp 149/18, 37 09:13:20 AOp 169/73 (113) 09:13:25 Signed By Albert Martínez MD On 03/16/2021 9:28:46 AM Albert Martínez MD
--- NOTE | 2021-03-16 10:13 | PCI.CARDCATH ---
PCI Cardiac Cath Report PCI Report: Procedure performed; 1. Successful PCI of the proximal diagonal branch/D1. With predilatation using 2 x 50 mm balloon followed by placement of drug-eluting stent 2.25 x 18 mm Followed by postdilatation 2.5 x 12 mm NC balloon, D1 95% stenosis preprocedure, postprocedure 0% Pre and post procedure VICKI-3 flow maintained. 2. Placement of TR band to the right radial artery arteriotomy site. 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 Martínez Finding of cardiac catheter revealed EF 65%, with normal LV wall motion and normal LV systolic function Left main nonobstructive atherosclerosis Mid circumflex artery 50% Mid RCA 40% Proximal diagonal branch is 95%./D1, LAD moderate to large size vessel, no obstructive atherosclerosis noted in the LAD Interventional equipment used; 1. 3.0 XB guide catheter 2. 2 x 15 mm image below 3. 2.25 x 80 mm drug eluting stent/Orsiro number four 0.014 run-through extra floppy 180 cm straight wire 4. 2.5 x 12 mm NC emerge MR balloon procedure in detail; Consent; Risk and benefit of the procedure explained detail patient elected to proceed informed consent obtained. Procedure in detail; We proceed with the guide catheter to the right radial artery approach using 3.0 XB guide advanced ascending aorta cannulated the left main following this we used run-through wire across the lesion in the diagonal branch, predilated the lesion followed by placement of drug-eluting stents followed by postdilatation using 2.5 x 12 mm balloon Achieve an excellent result Patient remains a stable hemodynamically she had a short. Of bradycardia heart rate around 44 was given 0.5 of atropine normalized heart rate and patient remained stable no significant change in the EKG Noted she had hypertension and will give hydralazine 10 mg IV ACT level was checked and patient was given aspirin and Brilinta Initial ACT was 248 and she was given additional 2000 units of heparin Conclusion; This patient has significant angina on exertion with high-grade lesion involving the proximal D1/diagonal branch with successful PCI and stenting. Recommendation plan; #1 patient to continue on DAPT Brilinta 90 mg 3 times daily/aspirin 81 mg once a day 2. Patient will be scheduled for phase 1 cardiac rehab program 3. Patient will follow up with her primary medical reception specialist Dr. Martínez for continuation of cardiac care TR band applied to right radial artery area with no complication in the General Store Manager. Birdie Buenrostro MD,FACC,[facility]
--- NOTE | 2021-03-16 11:56 | CRPH1.INST_ITS ---
General Education CAD and cardiac anatomy and function:: Patient communicates acknowledgment, Needs reinforcement Explanation of diagnoses and procedures:: Patient communicates acknowledgment, Needs reinforcement Sign/Symptoms of HI:: Patient communicates acknowledgment, Needs reinforcement Antiplatelet therapy: Patient communicates acknowledgment, Needs reinforcement Proper use of NTG-SL: Patient communicates acknowledgment, Needs reinforcement Emergency procedures and activation of EMS: Patient communicates acknowledgment, Needs reinforcement Compliance of all prescribed medications: Patient communicates acknowledgment, Needs reinforcement Smoking Patient Nicotine/Smoking Risk Factors Are:: Non-smoker Dyslipidemia Patient Dyslipidemia Risk Factors Are:: Total Cholesterol, Triglycerides, HDL, LDL Recommendations Include:: Lipid profile not available, Reviewed NCEP/ATP guidelines, Therapeutic Lifestyle Change dietary guidelines Dyslipidemia Response Code:: Patient communicates acknowledgment, Needs reinforcement Overweight/Obesity Patient Overweight/Obesity Risk Factors Are:: Overweight = 26-29 Recommendations Include:: Weight loss of 5-10%, Reduced calorie diet, Exercise 5-7 times/week Overweight/Obesity:: Patient communicates acknowledgment, Needs reinforcement Hypertension Recommendations Include:: Maintain BP <130/85, DASH dietary guidelines, Decrease/maintain normal body weight, Moderation of ETOH Hypertension:: Patient communicates acknowledgment, Needs reinforcement Sedentary Patient Sedentary Risk Factors Are:: Lack of regular exercise Recommendations Include:: Aerobic exercise 5-7 times/week for 20-30 minutes c ontinuously, Benefits of regular exercise, Discussed home walking program, Monitored Outpatient Cardiac Rehab Sedentary Response Code:: Patient communicates acknowledgment, Needs reinforcement
--- NOTE | 2021-03-16 11:56 | CRPHASE1 ---
Patient Communication PHII Cardiac Rehab Discussed with Patient:: Yes Guide to Cardiac Rehab Given to Patient:: Yes Cardiac Rehab Facility Choice List Given to Patient:: Yes Choice Program [facility] PHII:: Communication Given to CR Colored Liquid Plastic Applier:: Birdie Buenrostro Phase II Cardiac Rehab:: Yes Sessions:: 36 sessions - 3 days/wk, 12 weeks Cardiac Rehabilitation Info Cardiac Rehabilitation Program Information: Cardiac Rehabilitation is important for patients like you who are recovering from a heart problem. Cardiac rehabilitation programs are recognized as integral to the continued care of the patient with coronary heart disease. The cardiac rehabilitation program is designed to optimize a patient's physical, psychological, and social functioning. Health spiritual care coordinator work in cardiac rehabilitation programs and assist you with getting the treatments you need to get stronger and healthier - like exercise, healthy eating habits, and medications. Cardiac rehabilitation has been show to help people with heart problems live longer and have better life enjoyment than people who do not go to cardiac rehabilitation. Please contact the Cardiac Rehabilitation Program at [facility] at in two weeks if you have not heard from them.
--- NOTE | 2021-03-16 13:51 | PCS.PANDOC ---
PANDEMIC DOCUMENTATION INITIATED: Date: 11/24/2020 Time: 190
[2021-03-16] MEDS: 0.9% Normal Saline 1,000 ML 75 ML IV (14:10)
[2021-03-16] MEDS: Gabapentin 300 MG Capsule PO (21:54)
[2021-03-16] MEDS: Acetaminophen 500 MG Tablet 1000 MG PO (21:54)
[2021-03-17 03:01] VITALS: PULSE 64
[2021-03-17 03:57] VITALS: BP 140/58; PULSE 51; RESP 18; TEMP 36.8; O2SAT 95
[2021-03-17] MEDS: Levothyroxine 100 MCG Tablet PO (05:02)
[2021-03-17] MEDS: Losartan Potassium 50 MG Tablet PO (05:03)
[2021-03-17 05:52] LABS: Hematocrit 35.6 % (37-47); Hemoglobin 11.5 g/dL (12.0-15.0); Mean Corp Hgb Conc 32.3 g/dL (32-36); Mean Corpuscular Hgb 30.3 pg (27.0-32.0); Mean Corpuscular Volume 93.7 fL (81-99); Mean Platelet Vol. 10.2 fl (6.2-12.0); Platelet Count 323 K/mm3 (150-450); RBC Distribution Width CV 12.8 % (11.6-14.6); RBC Distribution Width SD 43.6 fl (35.1-43.9); White Blood Count 7.7 K/mm3 (4.4-11.0)
[2021-03-17 06:24] LABS: ALB/GLOB Ratio 1.1 RATIO (0.9-2.4); AST(SGOT) 33 U/L (15-37); Alanine Aminotransfer ALT/SGPT 44 U/L (13-56); Albumin, Serum 3.2 g/dL (3.2-5.0); Alkaline Phosphatase 39 U/L (45-117); Anion Gap 9 (5-15); BUN 21 mg/dL (7-18); BUN/Creat Ratio 16.7 RATIO (10-20); Calcium,Total 9.5 mg/dL (8.5-10.1); Chloride 112 mmol/L (98-107); Creatinine, Serum 1.26 mg/dL (0.55-1.02); EST Glomerular Filtration Rate 44 mL/min (>60); Est Glom Filt Rate - Afr Amer 54 mL/min (>60); Estimated Creatinine Clearance 32.39 ml/min; Glucose 102 mg/dL (74-106); Potassium 3.8 mmol/L (3.5-5.1); Protein, Total 6.2 g/dL (6.4-8.2); Sodium Level 143 mmol/L (136-145)
[2021-03-17 07:13] VITALS: PULSE 52
[2021-03-17 07:20] VITALS: O2SAT 98
--- NOTE | 2021-03-17 07:22 | PCM.PN.CARD ---
Subjective Subjective Patient seen and evaluated. Appears to be doing better this morning. No complaints Objective Data Vital Signs: Vital Signs Temp Pulse Resp BP Pulse Ox 98.3 F 51 L 18 140/58 H 95 03/17/21 03:57 03/17/21 03:57 03/17/21 03:57 03/17/21 03:57 03/17/21 03:57 Oxygen Delivery Method Room Air Weight: 141 lb 8.588 oz Body Mass Index (BMI) 25.9 Intake & Output: Intake and Output for Last 24 Hours 03/15/21 03/16/21 03/17/21 23:59 23:59 23:59 Intake Total 360 / 360 981.25 / 981.25 Balance 360 / 360 981.25 / 981.25 Lab / Micro Data Result Diagrams: 03/17/21 05:26 03/17/21 05:26 Labs: Laboratory Results - last 24 hr 03/17/21 05:26: WBC 7.7, RBC 3.80 L, Hgb 11.5 L, Hct 35.6 L, MCV 93.7, MCH 30.3, MCHC 32.3, RDW Std Deviation 43.6, RDW Coeff of Roberto 12.8, Plt Count 323, MPV 10.2 03/17/21 05:26: Sodium 143, Potassium 3.8, Chloride 112 H, Carbon Dioxide 22.0, Anion Gap 9, BUN 21 H, Creatinine 1.26 H, Estim Creat Clear Calc 32.39, Est GFR (MDRD) Af Amer 54 L, Est GFR (MDRD) Non-Af 44 L, BUN/Creatinine Ratio 16.7, Glucose 102, Calcium 9.5, Total Bilirubin 0.30, AST 33, ALT 44, Alkaline Phosphatase 39 L, Total Protein 6.2 L, Albumin 3.2, Globulin 3.0, Albumin/Globulin Ratio 1.1 Cardiology Labs/Tests 03/17/21 05:26: WBC 7.7, RBC 3.80 L, Hgb 11.5 L, Hct 35.6 L, MCV 93.7, MCH 30.3, MCHC 32.3, Plt Count 323, MPV 10.2 03/17/21 05:26: Sodium 143, Potassium 3.8, Chloride 112 H, Carbon Dioxide 22.0, Anion Gap 9, BUN 21 H, Creatinine 1.26 H, Est GFR (MDRD) Af Amer 54 L, Est GFR (MDRD) Non-Af 44 L, BUN/Creatinine Ratio 16.7, Glucose 102, Calcium 9.5, Total Bilirubin 0.30 Rhythm: EKG: ECHO: Stress Test: Cardiac Cath: PCI: CT Surgery: Holter monitor: EPS: PPM: CXR: Chest CT Scan: Physical Exam Const alert, oriented x3 and no apparent distress General Appearance: cooperative HEENT hearing grossly normal bilaterally Head and Scalp: atraumatic Eyes EOMs intact bilaterally Neck General: normal visual inspection Chest inspection of chest normal and palpation of chest normal Resp normal respiratory effort Auscultation: clear to auscultation bilaterally Cardio regular rate, regular rhythm, S1 normal heart sound and S2 normal heart sound Jugular Venous Distention: JVD GI normal to inspection, nondistended, normoactive bowel sounds Extremity normal capillary refill and no pedal edema Peripheral Pulses: Yes pulses 2+ throughout and femoral pulses present Skin no rashes or lesions noted Neuro oriented x3 and CN's II-XII intact bilaterally Psych Appearance: grossly normal and appropriate Assessment & Plan Assessment/Plan (1) History of coronary artery stent placement: PLAN: She is status post angioplasty and stenting of the first diagonal vessel. She is doing well this morning the plan is to continue the current medical therapy and follow-up in the office.
--- NOTE | 2021-03-17 07:24 | PCM.DC ---
Discharge Instructions Follow Up Care Test Results: Test results from this visit will be discussed in further detail at your follow-up appointment, if applicable. Discharge Plan Admission Admit Date/Time: 03/16/21 14:29 Attending Provider: Albert Martínez Primary Care Provider: Keara Bonilla Discharge Orders/Prescriptions Prescriptions: New Brilinta 90 mg Tablet 90 mg PO BID Qty: 60 RF: 2 Continued losartan 50 mg tablet 50 mg PO DAILY RF: 0 metoprolol succinate [Toprol XL] 50 mg tablet extended release 24 hr 50 mg PO DAILY Qty: 90 RF: 3 aspirin [Adult Aspirin Regimen] 81 mg tablet,delayed release (DR/EC) 81 mg PO DAILY RF: 0 venlafaxine 150 mg capsule,extended release 24hr 150 mg PO DAILY RF: 0 levothyroxine 100 mcg tablet 100 mcg PO DAILY RF: 0 oxybutynin chloride 5 mg tablet extended release 24hr 5 mg PO DAILY RF: 0 gabapentin 300 mg capsule 300 mg PO BID RF: 0 fenofibrate 160 mg tablet 160 mg PO DAILY RF: 0 acetaminophen 500 mg Tablet 1,000 mg PO QHS RF: 0 ergocalciferol (vitamin D2) 1,250 mcg (50,000 unit) capsule 1,250 mcg PO SUWE RF: 0 Referrals / Follow Up: Keara Bonilla DO [Primary Care Provider] - Disposition Disposition (needs filled in before D/C Order can be placed): Home, Self Care
[2021-03-17 07:48] VITALS: BP 137/56; PULSE 56; RESP 12; TEMP 36.7; O2SAT 98
[2021-03-17] MEDS: Aspirin E.C. 81 MG Tablet PO (07:52)
--- NOTE | 2021-03-17 09:08 | CASEMGMT ---
Pt to be sent home on Brilinta and pt provided Brilinta month free coupon card at this time, voices understanding. Pt voices no further questions/concerns/needs. Delicia YU CM
--- NOTE | 2021-03-17 10:00 | EKG12_ITS ---
Test Reason : AM EKG Blood Pressure : / mmHG Vent. Rate : 051 BPM Atrial Rate : 051 BPM P-R Int : 174 ms QRS Dur : 082 ms QT Int : 462 ms P-R-T Axes : 040 -11 068 degrees QTc Int : 425 ms Sinus bradycardia Nonspecific ST abnormality Abnormal ECG Confirmed by HERNAN HOYOS, LESLIE ([id number]), online editor DIONY JORGE ([id number]) on 03/18/2021 11:01:17 AM Referred By: DR GARCIA Confirmed By:LESLIE BECERRA MD
== END 2021-03-17 07:23 | disposition home or self-care (01) ==
LOC: CLSP 14:52 → PCU 14:52
PROVIDERS: Internal Medicine Interventional Cardiology; Admitting Provider Internal Medicine Cardiovascular Disease; PCP Family Medicine; Visit Provider Internal Medicine Cardiovascular Disease
DX: I25.110 Atherosclerotic heart disease of native coronary artery with unstable angina pectoris (principal); I10 Essential (primary) hypertension; E03.9 Hypothyroidism, unspecified; F32.A Depression, unspecified; N32.81 Overactive bladder; G35 Multiple sclerosis; Z79.899 Other long term (current) drug therapy; Z79.890 Hormone replacement therapy
CPT/HCPCS: 36415; 80053; 85027; 92928; 93005; 93458; 96360; 96361; 99152; 99153; 99218; C1874; J7030; J7040; C1725; C1769; C1887; C1894; C9600; G0378; Q9967

== ENCOUNTER → 2021-03-30 13:21 | Outpatient (CLI) | payer MEDICARE, OTHER, SELFPAY ==
--- NOTE | 2021-03-30 13:32 | CR.ITP_ITS ---
Diagnosis - General Information Admitting Diagnosis: PCI w/coronary stenting Personal Learning Style:: Audio/Visual, Written Barriers to Learning: Vision Impairment Stage of change r/t lifestyle modifications:: Action Gave educational material for:: Treating Heart Disease, Emotions & Heart Disease, Stress Management & Relaxation, Sleep Disorders & Heart Disease, How The Heart Works, What it means to have Heart Disease, How Coronary Artery Disease is Diagnosed, Heart Procedures, What Heart Medications Do, Risk Factors & Modifications, Living an Active Life, Nutrition - Education/Goals Individual Counseling: Initial Assessment: Abnormal Cholesterol Levels, High Blood Pressure Cardiac Rehabilitation Goals: 1. Maintain the individual as the primary focus of care. 2. To improve the patient's quality of life. 3. Identification of cardiac risk factors and provide cardiac risk factor management. 4. Enhance the psychosocial status of the patient. 5. Reconditioning enough to allow the patient to resume customary activities. 6. Control symptoms of cardiac disease Personal Goals: Initial Assessment: Improve energy level, Participate in home exercise program, Improve muscle strength and endurance, Improve diet and eating habits (eat healthier), Control risk factors (learn risk factor modification) Scale for measuring improvement of personal goals: Enter appropriate number in Comments. 2 = Unchanged. 3 = Slightly Better. 4 = Moderate Improvement. 5 = Met my Goal - Diagnosis & Disease Process Outcomes/Goals: Pt IDs own risk factors & lifestyle modifications by Session 10, Verbalizes symptoms of angina & response by session 3., Pt independently manages Plan/Interventions: Assist Pt to ID & engage in lifestyle modification to reduce CVD risk, Instruct on individual risk factors, Review symptoms of angina & emergency actions, Review secondary diagnosis & identify educational needs. - Safety Referral to Physical Therapy: No Referral to [facility] Case Management: No Fall Risk Assessed:: Yes Assistive Devices:: None Exercise - Initial Assessment - Visit Date of Eval: 03/30/21 Session #:: 0 - Pre-cardiac rehab evaluation Mets: Pre-: >5 METS for 30 minutes by discharge - Physician Prescribed Exercise Modalities: Treadmill, Airdyne, NuStep Frequency: 3x/week for 12 weeks [36 sessions] Intensity: 60-80% of age predicted maximum heart rate reserve Target Heart Rate:: 114-134 Resting Blood Pressure: 151/81 EKG Type: Sinus Bradycardia - Outcomes & Goals Goals:: Verbalizes understanding of THR, RPE & goal METS by session 6, Documents in home exercise log/reports 30 min aerobic 5 day/wk by DC, Demonstrates accurate pulse taking by DC - Intervention & Plan Exercise Program Goals: Instruct on personal THR & RPE, Instruct on MET level & personal MET goal, Show patient to take own pulse /validate performance until accurate, Instruct on home exercise - Physical Activity Home Exercise Physical Activity - Home Exercise: Safe Exercise, Warm-up, Self-monitoring, Cool-Down, Home Exercise > 30 min Daily, Sitting Time <3 hours/daily - Outcomes & Goals Outcomes/Goals: Demonstrates correct Warm-up/exercise Cool-Down (S3) if = 2.5 METs, Verbalizes symptoms of exercise intolerance by Session 3 (S3), Demonstrate safe equipment use (S3) & follows exercise prescrition (6) - Intervention & Plan Plan/Intervention: Instruct warm-up & cool-down if exercising at > 2 METs, Instruct on symptoms of exercise intolerance & actions to take, Instruct & monitor on saf, Assess intial functional capacity & safety risk Nutrition - Initial Assessment - Program Goals Nutrition Program Goals: LDL <100 optimal. 100 - 129 Near optimal. 130 - 159 Borderline High. 160 - 189 High. Total Cholesterol <200 desirable. 200 - 239 Borderline High. >/= 240 High. HDL < 40 Low >/=60 High. Triglycerides <150 desirable. <199 optimal. VlDL 5 - 40. HgbA1C <7%. BMI <25 Patient has diagnosis of Hyperlipidemia (ICD E78)?: Yes - Visit Date of Assessment:: 03/30/21 Session #:: 0 - Pre-cardiac rehab evaluation - Cholesterol/Lipids Triglycerides (mg/dL): 69 Total Cholesterol (mg/dL): 153 LDL Cholesterol (mg/dL): 88 HDL Cholesterol (mg/dL): 51 Determine presence & major risk factors that modify LDL goal: Hypertension or hypertensive medication, Age men > 45 years; women >/= 55 years Outcomes/Goals: Pt IDs own risk factors & lifestyle modifications by Session 10, Verbalizes symptoms of angina & response by session 3., Pt independently manages Intervention/Plan: Instruct on personal lipid levels & lipid goals/NCEP guidelines, Instruct on cholesterol - Diabetes (Other Core Measures) Diabetes Type: Not Applicable - Weight Mgt (Other Care) Not Applicable: Yes Height: 5 ft 2 in Weight:: 143 lb BMI: 26.2 Diagnosis Overweight/Obesity BMI> 30% ICD-10 E66: No Diagnosis High BMI/Morbid Obesity BMI> 35% ICD-10 Z68: No Outcomes/Goals: Pt sets, maintains & shows weight loss goal & trend during rehab Intervention/Plan: Instruct on ideal BMI & set weight loss goal w/patient - Healthy Eating Habits Will attend diet classes:: Yes Outcomes/Goals:: Consume diet rich in vegs,fruits,whole grain/high fiber,fish,lean meat Intervention/Plan:: Assess current eating habits - Education Gave educational materials for:: Healthy eating Nutrition - 30-Day Assessment Nutrition - 60-Day Assessment Nutrition - 90-Day Assessment Nutrition - Final Assessment Medical - Initial Assessment - Visit Date of Eval: 03/30/21 Session #:: 0 - pre-cardiac rehab evaluation - Medication Compliance Preventative Medication(s):: Aspirin H/O mental health issues: depression, anxiety, or addiction?: No Doesn?t believe in the benefits of treatment?: No Believes medications are unnecessary or harmful?: No Has a concern about medication side effects?: No Expresses concern over the cost of medications?: No Outcomes/Goals: Verbalizes medications,desired effect & common side effects @ DC, Pt self-reports following medication regimen, Keeps card in wallet w/medications listed by DC Interventions/plans: Instruct on medication effects & side effects, Review medication list w/patient every two weeks, Instruct importance of taking meds as ordered & assist problem solving - Tobacco Use Tobacco Use: Non-smoker - Hypertension Hypertension Diagnosis:: Hypertension ICD-10 I10 Resting Blood Pressure:: 151/81 [place] [employer] Hypertension Guidelines: [place] [employer] Hypertension Guidelines. Normal BP Less than 120/80. Elevated BP 120/80. Hypertension Stage 1: BP 130-139/80-89. Hypertesnion Stage 2: BP 140 or higher/90 or higher. Hypertension Crisis: BP higher than 180/120 Outcomes/Goals: Able to verbalize/achieve optimal blood pressure <130/80, Incorporates diet changes & exercise for blood pressure control by DC Interventions/plan: Instruct on optimal blood pressure, hypertension & medications, Instruct on effects of sodium, alcohol, stress, exercise &hypertension - Tobacco Cessation Referral Smoking Cessation Referral:: No Individual Education/Counseling:: No Education Schedule Given:: Yes - Educational online resources and printed work book given to patient. Medical- 30-Day Assessment Medical- 60-Day Assessment Medical- 90-Day Assessment Medical - Final Assessment Psychosocial - Initial Assess - VIsit Date of Eval: 03/30/21 Session #:: 0 - Pre-cardiac rehab evaluation Not Applicable: Yes History of previous Mental disease:: No - Psychosocial Test Tool Used:: Carmela Camargo QOL Cardiac, PHQ-9 Questionnaire phq-9 Severity: Severity. 1-4 Minimal Depression. 5-9 Mild Depression. 10-14 Moderate Depression. 15-19 Moderately Sever Depression. 20-27 Severe Depression. Rule: - Referral to Behavioral Health PS - Interventions: Yes Attend Stress Management Classes, No Referral to Behavioral Health if PHQ-9 score >9:, No Referral to [facility], No Referral to Physician if PHQ-9 if score is 5-9: - Outcomes/Goals: See list Psychosocial Outcomes/Goals:: ID's personal stressors & 2 strategies to manage stress by discharge - Intervention/Plan: See List Interventions/Plan:: Assess stressors,coping strategies & signs of derpression on admission, Instruct/assist pt to develop coping & personal stress Mgt strategies, Instruct patient to recognize signs & symptoms of depression, Ins truct patient to recog Psychosocial - 30-Day Assess Psychosocial - 60-Day Assess Psychosocial - 90-Day Assess Psychosocial - Final Assessmen Patient Health Questionnaire Initial Assessment 1. Little interest or pleasure in doing things: Not at all 2. Feeling down, depressed, or hopeless: Not at all 3. Trouble falling or staying asleep, or sleeping too much: Several days 4. Feeling tired or having little energy: Several days 5. Poor appetite or overeating: Not at all 6. Feeling bad about yourself -- or that you are a failure or have let yourself or your family down: Not at all 7. Trouble concentrating on things, such as reading the newspaper or watching television: Not at all 8. Moving or speaking so slowly that other people could have noticed. Or the opposite - being so fidgety or restless that you have been moving around a lot more than usual: Not at all 9. Thoughts that you would be better off , or of hurting yourself in some way: Not at all How difficult have these problems made it for you to do your work, take care of things at home, or get along with other people?: Not difficult at all Total Score: 2 MARC-Q SV Test - Statements CAD is a disease of the arteries in the heart: False Examples of risk factors for heart disease: True Angina is chest pain or discomfort: True The benefits of resistance training include: I Don't Know Eating more meat and dairy products: False Anti-platelet medications such as aspirin are important: True The only effective way to manage stress: False An exercise warm-up slowly increases heart rate: False Prepared, processed foods usually have high sodium: True Depression is common after a heart attack: I Don't Know The statin medications lower cholesterol: True To control blood pressure, lower the amount of sodium: True If someone gets chest discomfort during walking: False Transfats are partially hydrogenated vegetable oils: False Sleep apnea that is not treated increases the risk: False To control cholesterol, one should become a vegetarian: False Someone knows if he/she is exercising at the right level: True Diabetes cannot be prevented with exercise & health eating: False Stress is a large risk for heart attack: True A diet that can help lower blood pressure is rich in: True - Total Score Total Correct Responses: 16 Self-Efficacy Initial Assessment We would like to know how confident you are in doing certain activities. Please select your confidence level for:: Select your confidence level for the following using the scale 1-10 where 1 is not at all confident and 10 is totally confident. Your score is the average of all 6 responses. Fatigue: How confident are you that you can keep the fatigue caused by your disease from interfering with the things you want to do? Select Number: 7 Physical Discomfort or Pain: How confident are you that you can keep the physical discomfort or pain of your disease from interfering with the things you want to do? Select Number: 10 Emotional Distress: How confident are you that you can keep the emotional distress caused by your disease from interfering with the things you want to do? Select Number: 10 Other Symptoms or Health Problems: How confident are you that you can keep other symptoms or health problems from interfering with the things you want to do? Select Number: 10 Different Tasks and Activities: How confident are you that you can do the different tasks and activities needed to manage your health condition so as to reduce your need to see a doctor? Select Number: 9 Medication: How confident are you that you can do things other than just taking medication to reduce how much your illness affects your everyday life? Select Number: 10 Total Score:: 9 Nutrition Survey - Nutrition Survey Initial Have you lost >10 lbs over the past 2 months without trying?: No Are you following a special diet at home for diabetes, low fat, or low salt?: No Are you interested in meeting with a dietitian for help understanding your diet?: No Do you eat less than 3 meals a day?: Yes Do you eat fatty meats (torres, sausage, ribs, etc), fried foods, desserts, large amounts of salad dressings, margarine, butter, or cheese most days?: Yes Do you have food allergies? [Enter types in comment field]: No Do you eat in restaurants more than 3 times a week?: No Do you season food with salt, seasoning salt, or garlic salt?: Yes Do you used canned, boxed, frozen meals, or soups, seasoning packets?: No Total Score:: 3
--- NOTE | 2021-03-30 13:33 | PCM.CR.HP2 ---
CR - History & Physical - General Arrival date:: 03/30/21 Arrival time:: 13:00 Date of Referral:: 03/16/21 Date of CR Evaluation:: 03/30/21 Referring Physician: Dr. Albert Martínez - History of Present Cardiac Event Onset Date: Enter Onset Date of cardiac illnesses in Comment field below PTCA or coronary stenting:: Yes Type of Symptoms:: exertional chest pains Interventions with present event:: heart cath/coronary angioplasty implant graft - Sleep Disorder Evaluation Hx of Sleep Apnea: No Do you snore loudly (louder than talking or can be heard through closed doors)?: No Do you often feel tired/ fatigued/ sleepy during daytime?: Yes Has anyone observed you stop breathing during sleep?: No History of Hypertension (for STOP score): Yes STOP Results: Positive - Medications Home Medications: Ambulatory Orders Medication Instructions Recorded acetaminophen 1,000 mg PO QHS 01/27/21 ergocalciferol (vitamin D2) 1,250 mcg PO SUWE 01/27/21 fenofibrate 160 mg PO DAILY 01/27/21 gabapentin 300 mg PO BID 01/27/21 levothyroxine 100 mcg PO DAILY 01/27/21 oxybutynin chloride 5 mg PO DAILY 01/27/21 venlafaxine 150 mg PO DAILY 01/27/21 aspirin 81 mg tablet,delayed 81 mg PO DAILY 03/11/21 release losartan 50 mg tablet 50 mg PO DAILY tab 03/11/21 metoprolol succinate 50 mg 50 mg PO DAILY #90 tab 03/11/21 tablet,extended release 24 hr atorvastatin 20 mg tablet 20 mg PO DAILY #90 tab 03/17/21 ticagrelor [Brilinta] 90 mg PO BID 03/30/21 - Allergies Allergies/Adverse Reactions: Allergies No Known Allergies Allergy (Verified 03/11/21 09:25) Advanced Directives - Advanced Directives Power of Biological Scientist: Yes Living Will: Yes Advance Directives Information Provided: No Advance Directives on File: No DNR Order?:: No - MOLST See MOLST form: No Past Medical History - Covid-19 Screening Fever: No Unexplained muscle aches: No Current respiratory symptoms: No Upper respiratory infections symptoms: No Gastro-intestinal symptoms: No Ocq-Qaxb-Joaboi symptoms: No Has tested positive for COVID-19 in last 30 days: No Date of testin06/24/20 - Two of the Moderna vaccines Had contact w/person w/symptoms or Covid-19 (+) last 14 days: No Has High Risk Exposures ID'd by Health dept/Inf Control team: No 65 years or older:: Yes Lives in Assisted Living facility:: No Has a chronic lung disease or moderate to severe asthma:: No Has a serious heart condition:: No Immunocompromised:: No Severely obese (Body Mass Index of 40 or higher):: No Diabetic:: No Has chronic kidney disease undergoing dialysis:: No - Past Medical Illness Medical History: Past Medical History (Last Reviewed 03/16/21 @ 13:53 by Marlyn Ceron) Atherosclerotic heart disease of [place] coronary artery without angina pectoris I25.10 Depression F32.A Essential hypertension I10 Hyperlipidemia E78.5 Hypothyroidism E03.9 Multiple sclerosis G35 Overactive bladder N32.81 - Past Surgical History Surgical History: Past Surgical History (Last Reviewed 03/16/21 @ 13:53 by Marlyn Ceron) History of appendectomy Z90.49 History of coronary artery stent placement Onset Date: 03/16/21 Z95.5 JJY-ADU-Syet D1 w/ 2.25 x 18 mm Orsiro Stent 03/16/2021 History of hysterectomy Z90.710 History of left hip hemiarthroplasty Z96.642 History of tonsillectomy and adenoidectomy Z98.890 - Family History Summary Family History: Family History (Last Reviewed 03/16/21 @ 13:53 by Marlyn Ceron) Brother Hypertension Father Hypertension Social History - Smoking History Smoking Status: Never smoker Hx Tobacco Use: No Hx Smoking Exposure: No - Alcohol Use Alcohol Usage: No - Substance Abuse Hx Substance Use: No - Occupation Occupation (List type of work in comments):: Retired - Hobbies, Recreation, Social Activities Hobbies: Sewing, Other - formerly showed horses Recreational Activities: I am able to engage in most, but not all activities Social Environment - Status Marital Status: - Current Living Arrangements Living Environment:: Spouse - Children How many children do you have?: 0 - Safety Do you feel safe in your surroundings?: Yes - Assistance Do you need any assistance at home?: no Review of Systems Risk Factor Assessment - Chief Complaint Chief Complaint: 70 yr old female of Dr. Martínez's presentst julio to cardiac rehab following recent PCI intervention/stent. - Vital Signs Temperature: 98.1 F Respiratory Rate: 16 Pulse Ox: 95 Blood Pressure: 151/81 - Pulse Pulse Rate: 72 Pulse Rhythm: Regular - Hypertension How long have you been treated?: Just recently within the last 90 days On medication(s)?: Yes Blood Pressure Sitting - Left Arm: 151/81 - Stress Stress: Recent - Blood Cholesterol/Lipids Total Cholesterol (mg/dL) Goal = less than 200 mg/dL: 153 HDL Cholesterol (mg/dL) Goal = less than 40 mg/dL: 51 LDL Cholesterol (mg/dL) Goal = less than 70 mg/dL: 88 Triglycerides (mg/dL) Goal = less than 150 mg/dL: 69 - Obesity Height: 5 ft 2 in Weight:: 143 lb Weight in Pounds: 143.0 lbs Weight Source: Standing Scale Body Mass Index (BMI): 26.2 Nutritional Referral for Obesity: No - Physical Inactivity Physical Inactivity: Recreational activity - Risk Stratification Risk Guidelines: Lowest Risk: Risk Factor for Smoking, Risk Factor for Dyslipidemia, Risk Factor for Diabetes, Risk Factor for Obesity, Risk Factor for Sedentary Lifestyle, Risk Factor for Depression, Highest Risk: Risk Factor for Hypertension - 151/81 - Family History Family History: Family History (Last Reviewed 03/16/21 @ 13:53 by Marlyn Ceron) Brother Hypertension Father Hypertension Motivation - Motivation to Participate On a scale of 1 to 10, how prepared are you to commit to attending program?: 8 What do you see as barriers to successfully being able to complete the program?: none What do you see as the benefits of succesfully completing the program? In other words, what do you hope to get out of participating in the program?: Participate in home exercise safely Are there issues you are dealing with that will interfere with completing the program?: none Do you have a spouse or signficant other, family or friends who will help support you to complete the program?: yes
[2021-03-30 14:07] VITALS: BP 151/81; BMI 26.2
[2021-03-30 14:23] VITALS: BP 151/81; PULSE 72; RESP 16; TEMP 36.7; O2SAT 95; BMI 26.2
== END ==
PROVIDERS: PCP Family Medicine; Referring Provider Internal Medicine Cardiovascular Disease; Visit Provider Internal Medicine Cardiovascular Disease
DX: I25.10 Atherosclerotic heart disease of native coronary artery without angina pectoris (principal); Z95.5 Presence of coronary angioplasty implant and graft; I10 Essential (primary) hypertension; E78.5 Hyperlipidemia, unspecified; G35 Multiple sclerosis

== ENCOUNTER 2021-05-11 08:00 | Outpatient (RCR) | payer MEDICARE, OTHER, SELFPAY ==
[2021-03-30 14:07] VITALS: BMI 26.2
--- NOTE | 2021-04-28 07:31 | PCM.CR.ITP ---
Diagnosis - Education/Goals Individual Counseling: Initial Assessment: Abnormal Cholesterol Levels, High Blood Pressure Cardiac Rehabilitation Goals: 1. Maintain the individual as the primary focus of care. 2. To improve the patient's quality of life. 3. Identification of cardiac risk factors and provide cardiac risk factor management. 4. Enhance the psychosocial status of the patient. 5. Reconditioning enough to allow the patient to resume customary activities. 6. Control symptoms of cardiac disease Personal Goals: Initial Assessment: Improve energy level - 4, Participate in home exercise program - 4, Improve muscle strength and endurance - 3, Improve diet and eating habits (eat healthier) - 3, Control risk factors (learn risk factor modification) - 3 BP and inactivity, 30-day Re-assessment: Improve energy level, Participate in home exercise program, Improve muscle strength and endurance, Improve diet and eating habits (eat healthier), Control risk factors (learn risk factor modification) Scale for measuring improvement of personal goals: Enter appropriate number in Comments. 2 = Unchanged. 3 = Slightly Better. 4 = Moderate Improvement. 5 = Met my Goal Exercise - 30-day Assessment - Visit Date of Eval: 04/28/21 Session #:: 4 - Physician Prescribed Exercise Modalities: Treadmill, Airdyne, NuStep Frequency: 2x/week for 18 weeks [36 sessions] Intensity: 60-80% of age predicted maximum heart rate reserve Current METSs:: 3.5 Target Heart Rate:: 114-134 Current RPE:: 11-12 Maximum Excercise HR:: 85 Resting Blood Pressure: 168/72 - Resting BPs reported to Dr. Martínez's office. Maximum Exercise Blood Pressure: 148/60 EKG Type: Sinus bradycardia to sinus rhythm with rare PACs Current Physical Activity or Exercising minutes: 39:48 - Outcomes & Goals Goals:: Verbalizes understanding of THR, RPE & goal METS by session 6, Documents in home exercise log/reports 30 min aerobic 5 day/wk by DC, Demonstrates accurate pulse taking by DC - Intervention & Plan Exercise Program Goals: Instruct on personal THR & RPE, Instruct on MET level & personal MET goal, Show patient to take own pulse /validate performance until accurate, Instruct on home exercise - 30-day Reassessments 30 day Reassessments:: Progressing - Physical Activity Home Exercise Physical Activity - Home Exercise: Safe Exercise, Warm-up, Self-monitoring, Cool-Down, Home Exercise > 30 min Daily, Sitting Time <3 hours/daily - Outcomes & Goals Outcomes/Goals: Demonstrates correct Warm-up/exercise Cool-Down (S3) if = 2.5 METs, Verbalizes symptoms of exercise intolerance by Session 3 (S3), Demonstrate safe equipment use (S3) & follows exercise prescrition (6) - Intervention & Plan Plan/Intervention: Instruct warm-up & cool-down if exercising at > 2 METs, Instruct on symptoms of exercise intolerance & actions to take, Instruct & monitor on saf, Assess intial functional capacity & safety risk - 30-day Reassessments 30 day Reassessments:: Progressing Nutrition - Initial Assessment Nutrition - 30-Day Assessment - Program Goals Nutrition Program Goals: LDL <100 optimal. 100 - 129 Near optimal. 130 - 159 Borderline High. 160 - 189 High. Total Cholesterol <200 desirable. 200 - 239 Borderline High. >/= 240 High. HDL < 40 Low >/=60 High. Triglycerides <150 desirable. <199 optimal. VlDL 5 - 40. HgbA1C <7%. BMI <25 Patient has diagnosis of Hyperlipidemia (ICD E78)?: Yes - Visit Date of Assessment:: 04/28/21 Session #:: 4 - Cholesterol/Lipids Triglycerides (mg/dL): 69 Total Cholesterol (mg/dL): 153 LDL Cholesterol (mg/dL): 88 HDL Cholesterol (mg/dL): 51 Determine presence & major risk factors that modify LDL goal: Hypertension or hypertensive medication, Family history of premature CHD in Male < 55 years: female <65 yearsFa, Age men > 45 years; women >/= 55 years Outcomes/Goals: Pt IDs own risk factors & lifestyle modifications by Session 10, Verbalizes symptoms of angina & response by session 3., Pt independently manages Intervention/Plan: Instruct on personal lipid levels & lipid goals/NCEP guidelines, Instruct on cholesterol Referral to dietitian:: Yes - Medical Nutrition Therapy 30-day Reassessments:: Progressing - Diabetes (Other Core Measures) Diabetes Type: Not Applicable - Weight Mgt (Other Care) Not Applicable: Yes Height: 5 ft 2 in Weight:: 143 lb BMI: 26.2 Diagnosis Overweight/Obesity BMI> 30% ICD-10 E66: No Diagnosis High BMI/Morbid Obesity BMI> 35% ICD-10 Z68: No Outcomes/Goals: Pt sets, maintains & shows weight loss goal & trend during rehab Intervention/Plan: Instruct on ideal BMI & set weight loss goal w/patient - Healthy Eating Habits Will attend diet classes:: Yes Outcomes/Goals:: Consume diet rich in vegs,fruits,whole grain/high fiber,fish,lean meat, Limit sat/trans fats,cholesterol & added salts & sugars Intervention/Plan:: Assess current eating habits 30-day Reassessments:: Progressing - Education Gave educational materials for:: Healthy eating Nutrition - 60-Day Assessment Nutrition - 90-Day Assessment Nutrition - Final Assessment Medical - Initial Assessment Medical- 30-Day Assessment - Visit Date of Eval: 04/28/21 Session #:: 4 - Medication Compliance Preventative Medication(s):: Aspirin, Ticagrelor/P2Y12 inhibitor, Statin/lipid, Beta sinai H/O mental health issues: depression, anxiety, or addiction?: No Doesn?t believe in the benefits of treatment?: No Believes medications are unnecessary or harmful?: No Has a concern about medication side effects?: No Expresses concern over the cost of medications?: Yes - Ticagrelor cost even with inusrance Outcomes/Goals: Verbalizes medications,desired effect & common side effects @ DC, Pt self-reports following medication regimen, Keeps card in wallet w/medications listed by DC Interventions/plans: Instruct on medication effects & side effects, Review medication list w/patient every two weeks, Instruct importance of taking meds as ordered & assist problem solving 30-day Reassessments:: Progressing - Tobacco Use Tobacco Use: Non-smoker - Hypertension Hypertension Diagnosis:: Hypertension ICD-10 I10 Resting Blood Pressure:: 168/72 [place] [employer] Hypertension Guidelines: [place] [employer] Hypertension Guidelines. Normal BP Less than 120/80. Elevated BP 120/80. Hypertension Stage 1: BP 130-139/80-89. Hypertesnion Stage 2: BP 140 or higher/90 or higher. Hypertension Crisis: BP higher than 180/120 Peak Exercise Blood Pressure:: 170/68 Outcomes/Goals: Able to verbalize/achieve optimal blood pressure <130/80, Incorporates diet changes & exercise for blood pressure control by DC Interventions/plan: Instruct on optimal blood pressure, hypertension & medications, Instruct on effects of sodium, alcohol, stress, exercise &hypertension 30 day Reassessments:: Progressing - Tobacco Cessation Referral Smoking Cessation Referral:: No Individual Education/Counseling:: No Education Schedule Given:: Yes Medical- 60-Day Assessment Medical- 90-Day Assessment Medical - Final Assessment Psychosocial - Initial Assess Psychosocial - 30-Day Assess - VIsit Date of Eval: 04/28/21 Session #:: 4 Not Applicable: Yes History of previous Mental disease:: No - Psychosocial Test Tool Used:: PHQ-9 Questionnaire phq-9 Severity: Severity. 1-4 Minimal Depression. 5-9 Mild Depression. 10-14 Moderate Depression. 15-19 Moderately Sever Depression. 20-27 Severe Depression. Rule: - Referral to Behavioral Health PS - Interventions: Yes Attend Stress Management Classes, No Referral to Behavioral Health if PHQ-9 score >9:, No Referral to [facility], No Referral to Physician if PHQ-9 if score is 5-9: - Outcomes/Goals: See list Psychosocial Outcomes/Goals:: ID's personal stressors & 2 strategies to manage stress by discharge - Intervention/Plan: See List Interventions/Plan:: Assess stressors,coping strategies & signs of derpression on admission, Instruct/assist pt to develop coping & personal stress Mgt strategies, Instruct patient to recognize signs & symptoms of depression, Instruct patient to recog - 30-day Reassessments: 30 day Reassessments:: Progressing Psychosocial - 60-Day Assess Psychosocial - 90-Day Assess Psychosocial - Final Assessmen Patient Health Questionnaire 30-Day Re-eval Assessment 1. Little interest or pleasure in doing things: Not at all 2. Feeling down, depressed, or hopeless: Not at all 3. Trouble falling or staying asleep, or sleeping too much: Several days 4. Feeling tired or having little energy: Several days 5. Poor appetite or overeating: Not at all 6. Feeling bad about yourself -- or that you are a failure or have let yourself or your family down: Not at all 7. Trouble concentrating on things, such as reading the newspaper or watching television: Not at all 8. Moving or speaking so slowly that other people could have noticed. Or the opposite - being so fidgety or restless that you have been moving around a lot more than usual: Not at all 9. Thoughts that you would be better off , or of hurting yourself in some way: Not at all Total Score: 2 Self-Efficacy 30-Day Re-eval Assessment We would like to know how confident you are in doing certain activities. Please select your confidence level for:: Select your confidence level for the following using the scale 1-10 where 1 is not at all confident and 10 is totally confident. Your score is the average of all 6 responses. Fatigue: How confident are you that you can keep the fatigue caused by your disease from interfering with the things you want to do? Select Number: 8 Physical Discomfort or Pain: How confident are you that you can keep the physical discomfort or pain of your disease from interfering with the things you want to do? Select Number: 10 Emotional Distress: How confident are you that you can keep the emotional distress caused by your disease from interfering with the things you want to do? Select Number: 10 Other Symptoms or Health Problems: How confident are you that you can keep other symptoms or health problems from interfering with the things you want to do? Select Number: 10 Different Tasks and Activities: How confident are you that you can do the different tasks and activities needed to manage your health condition so as to reduce your need to see a doctor? Select Number: 10 Medication: How confident are you that you can do things other than just taking medication to reduce how much your illness affects your everyday life? Select Number: 10 Total Score:: 9 Nutrition Survey
[2021-04-28 07:44] VITALS: BP 168/72; BP 170/68; BMI 26.2
== END 2021-05-11 23:59 ==
LOC: CR 08:00
PROVIDERS: PCP Family Medicine; Referring Provider Internal Medicine Cardiovascular Disease; Visit Provider Internal Medicine Cardiovascular Disease
DX: R07.9 Chest pain, unspecified (principal); G35 Multiple sclerosis; R06.00 Dyspnea, unspecified; Z95.5 Presence of coronary angioplasty implant and graft; I25.10 Atherosclerotic heart disease of native coronary artery without angina pectoris; I10 Essential (primary) hypertension; E78.5 Hyperlipidemia, unspecified
CPT/HCPCS: 93798

== ENCOUNTER 2021-05-15 08:37 | Outpatient (CLI) | payer MEDICARE, OTHER, SELFPAY ==
[2021-04-28 07:44] VITALS: BMI 26.2
--- NOTE | 2021-05-15 08:50 | MRI_ITS ---
STUDY: MRI LEFT KNEE REASON FOR EXAM: Left knee pain for 6 months, left knee injury. TECHNIQUE: Standardized fat and water weighted pulse sequences were obtained in all 3 orthogonal planes. COMPARISON: None. FINDINGS: There is a small horizontal tear of the inferior articular surface of the posterior horn of the medial meniscus (proton-density sagittal images 9, 10). There is mild arthrosis of the medial femorotibial compartment with mild partial-thickness chondral loss of the medial femoral condyle (T2 sagittal image 6). Normal medial femoral condyle and tibial plateau. Normal medial collateral ligamentous complex (MCL). Normal distal semimembranosus, gracilis and semitendinosus tendons. Normal lateral meniscus. Normal hyaline cartilage of the lateral femorotibial compartment. Normal lateral femoral condyle and tibial plateau. Normal proximal tibiofibular articulation. Normal lateral collateral (fibular) ligament. Normal popliteus tendon. Normal biceps femoris tendon. There is mild intrasubstance mucoid degeneration of the anterior cruciate ligament (T2 sagittal image 12). Normal posterior cruciate ligament (PCL). Normal congruent patellofemoral articulation. There is intermediate grade chondromalacia patellae (T2 axial images 11, 12). Normal medial and lateral patellar retinaculum. Normal visualized quadriceps tendon. Normal patellar tendon. Normal Hoffa''s fat pad. There is a small joint effusion. The soft tissues are unremarkable. The otherwise visualized osseous structures are unremarkable. MRI/Lower Ext Joint Only (Routine) IMPRESSION: Small medial meniscal tear. Mild arthrosis of the medial femorotibial compartment. Chondromalacia patellae. Small joint effusion. Electronically Signed: Jesse Bhatia MD at 10:11 EST ,
== END 2021-05-15 23:59 | disposition short-term general hospital (02) ==
LOC: MRI 08:37
PROVIDERS: PCP Family Medicine; Referring Provider Nurse Practitioner Family; Visit Provider Nurse Practitioner Family
DX: S80.02XA Contusion of left knee, initial encounter (principal)
CPT/HCPCS: 73721

== ENCOUNTER 2021-06-08 08:00 | Outpatient (RCR) | payer MEDICARE, OTHER, SELFPAY ==
[2021-04-28 07:44] VITALS: BMI 26.2
[2021-05-12 00:08] VITALS: BP 168/72; BP 170/68
--- NOTE | 2021-05-29 07:15 | PCM.CR.ITP ---
Diagnosis Exercise - 30-day Assessment - Visit Date of Eval: 05/29/21 Session #:: 12 - Physician Prescribed Exercise Modalities: Treadmill, NuStep Frequency: 2x/week for 18 weeks [36 sessions] Intensity: 60-80% of age predicted maximum heart rate reserve Current METSs:: 5.0 patient reports per MRI she has a torn meniscus in her knee Target Heart Rate:: 114-134 Current RPE:: 12-13 Maximum Excercise HR:: 94 Resting Blood Pressure: 146/68 - Report of BPs sent to Dr. Martínez Maximum Exercise Blood Pressure: 168/68 EKG Type: NSR Current Physical Activity or Exercising minutes: 37:16 - Outcomes & Goals Goals:: Verbalizes understanding of THR, RPE & goal METS by session 6, Documents in home exercise log/reports 30 min aerobic 5 day/wk by DC, Demonstrates accurate pulse taking by DC - Intervention & Plan Exercise Program Goals: Instruct on personal THR & RPE, Instruct on MET level & personal MET goal, Show patient to take own pulse /validate performance until accurate, Instruct on home exercise - 30-day Reassessments 30 day Reassessments:: Progressing - Physical Activity Home Exercise Physical Activity - Home Exercise: Safe Exercise, Warm-up, Self-monitoring, Cool-Down, Home Exercise > 30 min Daily, Sitting Time <3 hours/daily - Outcomes & Goals Outcomes/Goals: Demonstrates correct Warm-up/exercise Cool-Down (S3) if = 2.5 METs, Verbalizes symptoms of exercise intolerance by Session 3 (S3), Demonstrate safe equipment use (S3) & follows exercise prescrition (6) - Intervention & Plan Plan/Intervention: Instruct warm-up & cool-down if exercising at > 2 METs, Instruct on symptoms of exercise intolerance & actions to take, Instruct & monitor on saf, Assess intial functional capacity & safety risk - 30-day Reassessments 30 day Reassessments:: Progressing Nutrition - Initial Assessment Nutrition - 30-Day Assessment - Program Goals Nutrition Program Goals: LDL <100 optimal. 100 - 129 Near optimal. 130 - 159 Borderline High. 160 - 189 High. Total Cholesterol <200 desirable. 200 - 239 Borderline High. >/= 240 High. HDL < 40 Low >/=60 High. Triglycerides <150 desirable. <199 optimal. VlDL 5 - 40. HgbA1C <7%. BMI <25 Patient has diagnosis of Hyperlipidemia (ICD E78)?: Yes - Visit Date of Assessment:: 05/29/21 Session #:: 12 - Cholesterol/Lipids Triglycerides (mg/dL): 69 Total Cholesterol (mg/dL): 153 LDL Cholesterol (mg/dL): 88 HDL Cholesterol (mg/dL): 51 Determine presence & major risk factors that modify LDL goal: Hypertension or hypertensive medication, Family history of premature CHD in Male < 55 years: female <65 yearsFa, Age men > 45 years; women >/= 55 years Outcomes/Goals: Pt IDs own risk factors & lifestyle modifications by Session 10, Verbalizes symptoms of angina & response by session 3., Pt independently manages Intervention/Plan: Instruct on personal lipid levels & lipid goals/NCEP guidelines, Instruct on cholesterol Referral to dietitian:: Yes - Medical Nutrition Therapy 30-day Reassessments:: Progressing - Diabetes (Other Core Measures) Diabetes Type: Not Applicable - Weight Mgt (Other Care) Not Applicable: Yes Height: 5 ft 2 in Weight:: 143 lb BMI: 26.2 Diagnosis Overweight/Obesity BMI> 30% ICD-10 E66: No Diagnosis High BMI/Morbid Obesity BMI> 35% ICD-10 Z68: No Outcomes/Goals: Pt sets, maintains & shows weight loss goal & trend during rehab Intervention/Plan: Instruct on ideal BMI & set weight loss goal w/patient 30 day Reassessments:: Met - Healthy Eating Habits Will attend diet classes:: Yes Outcomes/Goals:: Consume diet rich in vegs,fruits,whole grain/high fiber,fish,lean meat, Limit sat/trans fats,cholesterol & added salts & sugars Intervention/Plan:: Assess current eating habits 30-day Reassessments:: Met - Education Gave educational materials for:: Healthy eating Nutrition - 60-Day Assessment Nutrition - 90-Day Assessment Nutrition - Final Assessment Medical - Initial Assessment Medical- 30-Day Assessment - Visit Date of Eval: 05/29/21 Session #:: 12 - Medication Compliance Preventative Medication(s):: Aspirin, Ticagrelor/P2Y12 inhibitor, Statin/lipid, Beta sinai H/O mental health issues: depression, anxiety, or addiction?: No Doesn?t believe in the benefits of treatment?: No Believes medications are unnecessary or harmful?: No Has a concern about medication side effects?: No Expresses concern over the cost of medications?: No Outcomes/Goals: Verbalizes medications,desired effect & common side effects @ DC, Pt self-reports following medication regimen, Keeps card in wallet w/medications listed by DC Interventions/plans: Instruct on medication effects & side effects, Review medication list w/patient every two weeks, Instruct importance of taking meds as ordered & assist problem solving 30-day Reassessments:: Progressing - Tobacco Use Tobacco Use: Non-smoker - Hypertension Hypertension Diagnosis:: Hypertension ICD-10 I10 Resting Blood Pressure:: 146/68 [place] [employer] Hypertension Guidelines: [place] [employer] Hypertension Guidelines. Normal BP Less than 120/80. Elevated BP 120/80. Hypertension Stage 1: BP 130-139/80-89. Hypertesnion Stage 2: BP 140 or higher/90 or higher. Hypertension Crisis: BP higher than 180/120 Peak Exercise Blood Pressure:: 168/68 Outcomes/Goals: Able to verbalize/achieve optimal blood pressure <130/80, Incorporates diet changes & exercise for blood pressure control by DC Interventions/plan: Instruct on optimal blood pressure, hypertension & medications, Instruct on effects of sodium, alcohol, stress, exercise &hypertension 30 day Reassessments:: Not Met - Tobacco Cessation Referral Smoking Cessation Referral:: No Individual Education/Counseling:: No Education Schedule Given:: Yes Medical- 60-Day Assessment Medical- 90-Day Assessment Medical - Final Assessment Psychosocial - Initial Assess Psychosocial - 30-Day Assess - VIsit Date of Eval: 05/29/21 Session #:: 12 Not Applicable: Yes History of previous Mental disease:: No - Psychosocial Test Tool Used:: PHQ-9 Questionnaire phq-9 Severity: Severity. 1-4 Minimal Depression. 5-9 Mild Depression. 10-14 Moderate Depression. 15-19 Moderately Sever Depression. 20-27 Severe Depression. Rule: - Referral to Behavioral Health PS - Interventions: Yes Attend Stress Management Classes, No Referral to Behavioral Health if PHQ-9 score >9:, No Referral to [facility], No Referral to Physician if PHQ-9 if score is 5-9: - Intervention/Plan: See List Interventions/Plan:: Assess stressors,coping strategies & signs of derpression on admission, Instruct/assist pt to develop coping & personal stress Mgt strategies, Instruct patient to recognize signs & symptoms of depression, Instruct patient to recog - 30-day Reassessments: 30 day Reassessments:: Met Psychosocial - 60-Day Assess Psychosocial - 90-Day Assess Psychosocial - Final Assessmen Patient Health Questionnaire 30-Day Re-eval Assessment 1. Little interest or pleasure in doing things: Not at all 2. Feeling down, depressed, or hopeless: Not at all 3. Trouble falling or staying asleep, or sleeping too much: Several days 4. Feeling tired or having little energy: Not at all 5. Poor appetite or overeating: Not at all 6. Feeling bad about yourself -- or that you are a failure or have let yourself or your family down: Not at all 7. Trouble concentrating on things, such as reading the newspaper or watching television: Not at all 8. Moving or speaking so slowly that other people could have noticed. Or the opposite - being so fidgety or restless that you have been moving around a lot more than usual: Not at all 9. Thoughts that you would be better off , or of hurting yourself in some way: Not at all How difficult have these problems made it for you to do your work, take care of things at home, or get along with other people?: Not difficult at all Total Score: 1 Self-Efficacy 30-Day Re-eval Assessment We would like to know how confident you are in doing certain activities. Please select your confidence level for:: Select your confidence level for the following using the scale 1-10 where 1 is not at all confident and 10 is totally confident. Your score is the average of all 6 responses. Fatigue: How confident are you that you can keep the fatigue caused by your disease from interfering with the things you want to do? Select Number: 9 Physical Discomfort or Pain: How confident are you that you can keep the physical discomfort or pain of your disease from interfering with the things you want to do? Select Number: 10 Emotional Distress: How confident are you that you can keep the emotional distress caused by your disease from interfering with the things you want to do? Select Number: 10 Other Symptoms or Health Problems: How confident are you that you can keep other symptoms or health problems from interfering with the things you want to do? Select Number: 10 Different Tasks and Activities: How confident are you that you can do the different tasks and activities needed to manage your health condition so as to reduce your need to see a doctor? Select Number: 10 Medication: How confident are you that you can do things other than just taking medication to reduce how much your illness affects your everyday life? Select Number: 10 Total Score:: 9 Nutrition Survey
[2021-05-29 07:31] VITALS: BP 146/68; BP 168/68; BMI 26.2
== END 2021-06-08 23:59 ==
LOC: CR 08:00
PROVIDERS: PCP Family Medicine; Referring Provider Internal Medicine Cardiovascular Disease; Visit Provider Internal Medicine Cardiovascular Disease
DX: R06.00 Dyspnea, unspecified (principal); G35 Multiple sclerosis; R07.9 Chest pain, unspecified; Z95.5 Presence of coronary angioplasty implant and graft; I25.10 Atherosclerotic heart disease of native coronary artery without angina pectoris; I10 Essential (primary) hypertension; E78.5 Hyperlipidemia, unspecified
CPT/HCPCS: 93798

== ENCOUNTER 2021-07-03 08:00 | Outpatient (RCR) | payer MEDICARE, OTHER, SELFPAY ==
[2021-05-29 07:31] VITALS: BMI 26.2
[2021-06-09 00:14] VITALS: BP 146/68; BP 168/68
--- NOTE | 2021-06-26 12:58 | CR.ITP_ITS ---
Diagnosis - General Information Admitting Diagnosis: PCI with coronary stent Exercise - 90-day Assessment - Physician Prescribed Exercise Modalities: Treadmill, NuStep Frequency: 3x/week for 12 weeks [36 sessions] Intensity: 60-80% of age predicted maximum heart rate reserve Current METSs:: 5 Target Heart Rate:: 114-134 Current RPE:: 12-13 Maximum Excercise HR:: 101 Resting Blood Pressure: 130/68 Maximum Exercise Blood Pressure: 160/80 EKG Type: NSR to ST with an isolated PAC - Outcomes & Goals Goals:: Verbalizes understanding of THR, RPE & goal METS by session 6, Documents in home exercise log/reports 30 min aerobic 5 day/wk by DC, Demonstrates accurate pulse taking by DC, Other additional outcome/goals: see below - Intervention & Plan Exercise Program Goals: Instruct on personal THR & RPE, Instruct on MET level & personal MET goal, Show patient to take own pulse /validate performance until accurate, Instruct on home exercise, Other additional plan/int - 30-day Reassessments 30 day Reassessments:: Progressing - Physical Activity Home Exercise Physical Activity - Home Exercise: Safe Exercise, Warm-up, Self-monitoring, Cool-Down, Home Exercise > 30 min Daily, Sitting Time <3 hours/daily - Outcomes & Goals Outcomes/Goals: Demonstrates correct Warm-up/exercise Cool-Down (S3) if = 2.5 METs, Verbalizes symptoms of exercise intolerance by Session 3 (S3), Demonstrate safe equipment use (S3) & follows exercise prescrition (6), Other: See below - Intervention & Plan Plan/Intervention: Instruct warm-up & cool-down if exercising at > 2 METs, Instruct on symptoms of exercise intolerance & actions to take, Instruct & monitor on saf, Assess intial functional capacity & safety risk, Other See below - 30-day Reassessments 30 day Reassessments:: Progressing Nutrition - Initial Assessment Nutrition - 30-Day Assessment Nutrition - 60-Day Assessment Nutrition - 90-Day Assessment - Program Goals Nutrition Program Goals: LDL <100 optimal. 100 - 129 Near optimal. 130 - 159 Borderline High. 160 - 189 High. Total Cholesterol <200 desirable. 200 - 239 Borderline High. >/= 240 High. HDL < 40 Low >/=60 High. Triglycerides <150 desirable. <199 optimal. VlDL 5 - 40. HgbA1C <7%. BMI <25 Patient has diagnosis of Hyperlipidemia (ICD E78)?: Yes - Visit Date of Assessment:: 06/26/21 Session #:: 24 - Cholesterol/Lipids Determine presence & major risk factors that modify LDL goal: Hypertension or hypertensive medication, Low HDL cholesterol <40 mg/dL*, Family history of premature CHD in Male < 55 years: female <65 yearsFa, Age men > 45 years; women >/= 55 years Outcomes/Goals: Pt IDs own risk factors & lifestyle modifications by Session 10, Verbalizes symptoms of angina & response by session 3., Pt independently manages, Other Additional Outcomes/Goals: Intervention/Plan: Advocate for lipid panel cholesterol medication if applicable, Instruct on personal lipid levels & lipid goals/NCEP guidelines, Instruct on cholesterol, Other additional plan/int Referral to dietitian:: Yes - medical nutrition therapy 30-day Reassessments:: Progressing - Weight Mgt (Other Care) Height: 5 ft 2 in Weight:: 64.864 kg BMI: 26.2 30 day Reassessments:: Progressing - Healthy Eating Habits Will attend diet classes:: Yes Outcomes/Goals:: Consume diet rich in vegs,fruits,whole grain/high fiber,fish,lean meat, Limit sat/trans fats,cholesterol & added salts & sugars, Other additional outcome/goals: Intervention/Plan:: Assess current eating habits, Other Additional plan/interventions 30-day Reassessments:: Progressing - Education Gave educational materials for:: Signs & symptoms of hypoglycemia, Signs & symptoms of hyperglycemia, Relate diabetes to coronary artery disease, Healthy eating Nutrition - Final Assessment Medical - Initial Assessment Medical- 30-Day Assessment Medical- 60-Day Assessment Medical- 90-Day Assessment - Visit Date of Eval: 06/26/21 Session #:: 24 - Medication Compliance Preventative Medication(s):: Aspirin, Ticagrelor/P2Y12 inhibitor, Statin/lipid, Beta sinai H/O mental health issues: depression, anxiety, or addiction?: No Doesn?t believe in the benefits of treatment?: No Believes medications are unnecessary or harmful?: No Has a concern about medication side effects?: No Expresses concern over the cost of medications?: No Outcomes/Goals: Verbalizes medications,desired effect & common side effects @ DC, Pt self-reports following medication regimen, Keeps card in wallet w/medications listed by DC, Other additional outcome/goals: Interventions/plans: Instruct on medication effects & side effects, Review medication list w/patient every two weeks, Instruct importance of taking meds as ordered & assist problem solving, Other additional 30-day Reassessments:: Progressing - Tobacco Use 30-day Reassessments:: Progressing - Hypertension Hypertension Diagnosis:: Hypertension ICD-10 I10 Resting Blood Pressure:: 130/68 [place] [employer] Hypertension Guidelines: [place] [employer] Hypertension Guidelines. Normal BP Less than 120/80. Elevated BP 120/80. Hypertension Stage 1: BP 130-139/80-89. Hypertesnion Stage 2: BP 140 or higher/90 or higher. Hypertension Crisis: BP higher than 180/120 Peak Exercise Blood Pressure:: 160/80 Interventions/plan: Instruct on optimal blood pressure, hypertension & medications, Instruct on effects of sodium, alcohol, stress, exercise &hypertension, Other additional plan/interventions 30 day Reassessments:: Progressing - Tobacco Cessation Referral Smoking Cessation Referral:: No Individual Education/Counseling:: No Education Schedule Given:: Yes Medical - Final Assessment Psychosocial - Initial Assess Psychosocial - 30-Day Assess Psychosocial - 60-Day Assess Psychosocial - 90-Day Assess - VIsit Date of Eval: 06/26/21 Session #:: 24 History of previous Mental disease:: No - 30-day Reassessments: 30 day Reassessments:: Progressing Psychosocial - Final Assessmen Patient Health Questionnaire 90-Day Re-eval Assessment 1. Little interest or pleasure in doing things: Not at all 2. Feeling down, depressed, or hopeless: Not at all 3. Trouble falling or staying asleep, or sleeping too much: Several days 4. Feeling tired or having little energy: Not at all 5. Poor appetite or overeating: Not at all 6. Feeling bad about yourself -- or that you are a failure or have let yourself or your family down: Not at all 7. Trouble concentrating on things, such as reading the newspaper or watching television: Not at all 8. Moving or speaking so slowly that other people could have noticed. Or the opposite - being so fidgety or restless that you have been moving around a lot more than usual: Not at all 9. Thoughts that you would be better off , or of hurting yourself in some way: Not at all How difficult have these problems made it for you to do your work, take care of things at home, or get along with other people?: Not difficult at all Total Score: 1 Self-Efficacy 90-Day Re-eval Assessment We would like to know how confident you are in doing certain activities. Please select your confidence level for:: Select your confidence level for the following using the scale 1-10 where 1 is not at all confident and 10 is totally confident. Your score is the average of all 6 responses. Fatigue: How confident are you that you can keep the fatigue caused by your disease from interfering with the things you want to do? Select Number: 9 Physical Discomfort or Pain: How confident are you that you can keep the physical discomfort or pain of your disease from interfering with the things you want to do? Select Number: 10 Emotional Distress: How confident are you that you can keep the emotional distress caused by your disease from interfering with the things you want to do? Select Number: 10 Other Symptoms or Health Problems: How confident are you that you can keep other symptoms or health problems from interfering with the things you want to do? Select Number: 10 Different Tasks and Activities: How confident are you that you can do the different tasks and activities needed to manage your health condition so as to reduce your need to see a doctor? Select Number: 10 Medication: How confident are you that you can do things other than just taking medication to reduce how much your illness affects your everyday life? Select Number: 10 Total Score:: 9 Nutrition Survey
[2021-06-26 13:09] VITALS: BP 130/68; BP 160/80; BMI 26.2
== END 2021-07-09 23:59 | disposition home or self-care (01) ==
LOC: CR 08:00
PROVIDERS: PCP Family Medicine; Referring Provider Internal Medicine Cardiovascular Disease; Visit Provider Internal Medicine Cardiovascular Disease
DX: I25.10 Atherosclerotic heart disease of native coronary artery without angina pectoris (principal); Z95.5 Presence of coronary angioplasty implant and graft
CPT/HCPCS: 93798

== ENCOUNTER 2021-07-20 08:00 | Outpatient (RCR) | payer MEDICARE, OTHER, SELFPAY ==
[2021-06-26 13:09] VITALS: BMI 26.2
[2021-07-10 00:18] VITALS: BP 130/68; BP 160/80
== END 2021-08-08 23:59 ==
LOC: CR 08:00
PROVIDERS: PCP Family Medicine; Referring Provider Internal Medicine Cardiovascular Disease; Visit Provider Internal Medicine Cardiovascular Disease
DX: I25.10 Atherosclerotic heart disease of native coronary artery without angina pectoris (principal); Z95.5 Presence of coronary angioplasty implant and graft; I10 Essential (primary) hypertension; E78.5 Hyperlipidemia, unspecified; G35 Multiple sclerosis; R06.00 Dyspnea, unspecified; R07.9 Chest pain, unspecified
CPT/HCPCS: 93798

== ENCOUNTER → 2022-04-22 | Outpatient (CLI) | payer MEDICARE, OTHER, SELFPAY ==
[2021-06-26 13:09] VITALS: BMI 26.2
[2022-04-22 12:53] LABS: AST(SGOT) 13 U/L (15-37); Alanine Aminotransfer ALT/SGPT 22 U/L (13-56); Albumin, Serum 3.9 g/dL (3.2-5.0); Alkaline Phosphatase 38 U/L (45-117); Bilirubin, Direct 0.16 mg/dL (0.00-0.30); Cholesterol 153 mg/dL (200); Globulin 2.8 g/dL (2.2-4.2); High Density Lipoprotein 51 mg/dL; Protein, Total 6.7 g/dL (6.4-8.2); Triglycerides 188 mg/dL; Very Low Density Lipoprotein 38 mg/dL (5-40)
== END | disposition home or self-care (01) ==
LOC: LAB 10:36
PROVIDERS: PCP Family Medicine; Referring Provider Internal Medicine Cardiovascular Disease; Visit Provider Internal Medicine Cardiovascular Disease
DX: I10 Essential (primary) hypertension (principal); Z95.5 Presence of coronary angioplasty implant and graft; R07.9 Chest pain, unspecified
CPT/HCPCS: 36415; 80061; 80076

== ENCOUNTER → 2022-10-19 | Outpatient (CLI) | payer MEDICARE, OTHER, SELFPAY ==
[2021-06-26 13:09] VITALS: BMI 26.2
[2022-10-19 09:37] LABS: AST(SGOT) 14 U/L (15-37); Alanine Aminotransfer ALT/SGPT 18 U/L (13-56); Albumin, Serum 3.9 g/dL (3.2-5.0); Alkaline Phosphatase 44 U/L (45-117); Bilirubin, Direct 0.16 mg/dL (0.00-0.30); Cholesterol 161 mg/dL (200); Globulin 2.9 g/dL (2.2-4.2); High Density Lipoprotein 49 mg/dL; Protein, Total 6.8 g/dL (6.4-8.2); Triglycerides 110 mg/dL; Very Low Density Lipoprotein 22 mg/dL (5-40)
== END | disposition home or self-care (01) ==
LOC: LAB 08:39
PROVIDERS: PCP Family Medicine; Referring Provider Internal Medicine Cardiovascular Disease; Visit Provider Internal Medicine Cardiovascular Disease
DX: E78.00 Pure hypercholesterolemia, unspecified (principal)
CPT/HCPCS: 36415; 80061; 80076

== ENCOUNTER → 2024-01-02 | Outpatient (CLI) | payer MEDICARE, OTHER, SELFPAY ==
[2021-06-26 13:09] VITALS: BMI 26.2
--- NOTE | 2024-01-02 15:57 | STRESSREP_ITS ---
Stress Test Report Exercise myocardial perfusion stress test. 73-year-old lady with a history of chest pain Stress protocol: Resting EKG demonstrates sinus bradycardia with a rate of 53 bpm resting blood pressure is 118/64 mmHg. The patient exercised according to the regular [facility] protocol for a total duration of 7 minutes and 30 seconds attaining a maximum heart rate of 125 bpm which was 85% of maximum predicted heart rate; the maximum workload was 10.1 metabolic equivalents. At rest there were no ST or T wave changes noted to suggest ischemia and at peak exercise upsloping ST changes only were noted which did not meet the criteria for ischemia. No clinical angina was noted the test was terminated due to the target heart rate being achieved/fatigu e. The peak blood pressure was 182/70 mmHg. Rate-pressure product was 18,500. Myocardial perfusion protocol. 11.3 mCi of technetium 99m sestamibi was injected at rest. The patient exercised according to regular [facility] protocol for total duration of 7-1/2 minutes and at peak exercise 31.9 mCi of technetium 99m sestamibi was injected stress images were obtained stress and rest images were reconstructed in comparing the short axis vertical long and horizontal long axis. Gated images were also obtained. Perfusion SPECT analysis: Review of the stress images demonstrate normal uptake of tracer noted in all areas of the myocardium. The resting images similarly demonstrate normal uptake of tracer noted in all areas of the myocardium. No areas of reversibility are noted to suggest ischemia no previous infarct was noted. Gated SPECT analysis: The gated ejection fraction is 78%. Conclusion: Normal exercise myocardial perfusion stress test at a high workload Preserved ejection fraction.
== END | disposition home or self-care (01) ==
LOC: CVS 06:38
PROVIDERS: PCP Family Medicine; Referring Provider Nurse Practitioner Family; Visit Provider Nurse Practitioner Family
DX: R07.9 Chest pain, unspecified (principal); I10 Essential (primary) hypertension; E78.2 Mixed hyperlipidemia; Z95.5 Presence of coronary angioplasty implant and graft
CPT/HCPCS: 78452; 93017; A9500; A4216

== ENCOUNTER → 2024-11-06 | Outpatient (CLI) | payer MEDICARE, OTHER, SELFPAY ==
[2021-06-26 13:09] VITALS: BMI 26.2
--- NOTE | 2024-11-06 09:33 | RAD_ITS ---
PROCEDURE: CHEST PA AND LATERAL 11/06/2024 REASON FOR EXAM: CARDIAC CATH TECHNIQUE: CHEST PA AND LATERAL COMPARISON: 01/27/2021 FINDINGS: Scoliosis. Normal heart size. Status post coronary stenting. Elevated right hemidiaphragm. Well inflated lungs. No consolidation, effusion or pneumothorax. RAD/Chest PA and Lateral IMPRESSION: No acute chest findings. Reading Location: [place] [id number]
[2024-11-06 10:03] LABS: Hematocrit 41.1 % (37-47); Hemoglobin 13.7 g/dL (12.0-15.0); Immature Granulocytes Count 0.020 X10^3/uL (0.0-0.0); Mean Corp Hgb Conc 33.3 g/dL (32-36); Mean Corpuscular Volume 92.8 fL (81-99); Mean Platelet Vol. 9.7 fl (6.2-12.0); NRBC Flagged by Analyzer 0 % (0-5); Platelet Count 342 K/mm3 (150-450); RBC Distribution Width CV 12.4 % (11.6-14.6); RBC Distribution Width SD 42.5 fl (35.1-43.9); Red Blood Count 4.43 M/mm3 (4.2-5.4); White Blood Count 6.5 K/mm3 (4.4-11.0)
[2024-11-06 11:40] LABS: Anion Gap 11 (5-15); BUN 23 mg/dL (4-19); BUN/Creat Ratio 17.9 RATIO (10-20); Calcium,Total 9.7 mg/dL (7.6-11.0); Carbon Dioxide 21.9 mmol/L (21.0-32.0); Chloride 107 mmol/L (98-108); Glucose 87 mg/dL (70-99); Potassium 4.3 mmol/L (3.3-5.1)
== END | disposition home or self-care (01) ==
LOC: RAD 09:32
PROVIDERS: PCP Family Medicine; Referring Provider Nurse Practitioner Gerontology; Visit Provider Nurse Practitioner Gerontology
DX: R07.9 Chest pain, unspecified (principal)
CPT/HCPCS: 36415; 71046; 80048; 85025

== ENCOUNTER 2024-11-13 06:41 | Day surgery (SDC) | payer MEDICARE, OTHER, SELFPAY ==
[2021-06-26 13:09] VITALS: BMI 26.2
[2024-11-12 08:05] VITALS: BMI 25.9
--- OUTSIDE RECORDS SUMMARY | 2024-11-13 07:04 | XMS RPT_ITS | CCD ---
Author Organization [facility] Care Team Providers Care Grease Maker Head Name Role Phone KEYONNA CAMARENA DO Primary Care Physician ([facility] )75 Navid PT, Yasmine Unavailable Unavailable Dr. Keyonna Camarena Primary Care Provider Dr. Albert Martínez Attending Provider 1([facility]) Dr. Albert Martínez Other Provider Dr. Birdie Buenrostro Attending Provider 1([phone] Yfn Pettit Attending Provider 1([facility]) Dr. Albert Martínez Referring Provider 1([facility]) Dr. Albert Martínez Admit Provider Dr. Keyonna Camarena Referring Provider 1([facility]) [facility] MUNICIPAL CLERK, MUNICIPAL CLERK-Noah Vale Attending Provider 1([facility]) [phone] Dr. Keyonna Camarena Primary Care Provider Dr. Keyonna Camarena Primary Care Provider Dr. Keyonna Camarena Referring Provider 1([facility]) Dr. Albert Martínez Attending Provider 1([facility]) KEYONNA CAMARENA DO Primary Care Physician ([facility]) KEYONNA CAMARENA DO Primary Care Unavailable KEYONNA CAMARENA DO Attending Unavailable KEYONNA CAMARENA DO Primary Care Unavailable KEYONNA CAMARENA DO Attending Unavailable CHAD DOKEYONNA Primary Care Unavailable CHAD DOKEYONNA Attending Unavailable KEYONNA CAMARENA DO Attending Unavailable CHAD DOKEYONNA Primary Care Unavailable KEYONNA CAMARENA DO Primary Care Unavailable CHAD DO, KEYONNA Attending Unavailable CHAD DO, KEYONNA Primary Care Unavailable CHAD DO, KEYONNA Attending Unavailable CHAD DO, KEYONNA Primary Care Unavailable CHAD DO, KEYONNA Attending Unavailable MARILY ROSALES MD Attending Unavailable CHAD DO, KEYONNA Primary Care Unavailable CHAD DO, KEYONNA Attending Unavailable CHAD DO, KEYONNA Primary Care Unavailable CHAD DO, KEYONNA Primary Care Unavailable CHAD DO, KEYONNA Attending Unavailable CHAD DO, KEYONNA Primary Care Unavailable CHAD DO, KEYONNA Attending Unavailable CHAD DO, KEYONNA Primary Care Unavailable CHAD DO, KEYONNA Attending Unavailable CHAD DO, KEYONNA Primary Care Unavailable CHAD DO, KEYONNA Attending Unavailable CHAD DO, KEYONNA Primary Care Unavailable CHAD DO, KEYONNA Attending Unavailable CHAD DO, KEYONNA Primary Care Unavailable CHAD DO, KEYONNA Attending Unavailable CHAD DO, KEYONNA Primary Care Unavailable CHAD DO, KEYONNA Attending Unavailable Chad BARBOUR, Dr. Sarah Primary Care Provider [phone] Dr. Keyonna Camarena DO Referring Provider Matt MUNICIPAL CLERK-C, Julia Attending Provider Roof MUNICIPAL CLERK, Rajan H Attending Unavailable Chad, Keyonna Primary Care Unavailable Chad, Keyonna Referring Unavailable Chad, Keyonna Referring Unavailable Chad, Keyonna Primary Care Unavailable Roof MUNICIPAL CLERK, Rajan H Attending Unavailable Roof MUNICIPAL CLERK, Rajan H Attending Unavailable Roof MUNICIPAL CLERK, Rajan H Referring Unavailable Chad, Keyonna Primary Care Unavailable Matt MUNICIPAL CLERK, Julia Attending Unavailable Chad, Keyonna Primary Care Unavailable Matt MUNICIPAL CLERK, Julia Attending Unavailable Gutierrez MUNICIPAL CLERK, Julia Referring Unavailable Chad, Keyonna Primary Care Unavailable Chad, Keyonna Referring Unavailable Chad, Keyonna Primary Care Unavailable Roof MUNICIPAL CLERK, Rajan H Attending Unavailable Gutierrez MUNICIPAL CLERK, Julia Attending Unavailable Chad, Keyonna Referring Unavailable Chad, Keyonna Primary Care Unavailable Roof MUNICIPAL CLERK, Rajan H Referring Unavailable Mauricio, Albert Attending Unavailable Chad, Keyonna Primary Care Unavailable Roof MUNICIPAL CLERK, Rajan H Consulting Unavailable Allergies Allergy Classification Reported Allergen(s) Allergy Type Date of Onset Reaction(s) Facility (20 sources) Alendronate; Translations: [alendronate] Drug Allergy Muscle pain (finding) [facility] Work Phone: (20 sources) Lovastatin / Niacin; Translations: [lovastatin-niac in] Drug Allergy Muscle pain (finding) [facility] Work Phone: (20 sources) Risedronate; Translations: [risedronate] Drug Allergy Muscle pain (finding) [facility] Work Phone: (20 sources) Simvastatin; Translations: [simvastatin] Drug Allergy Muscle pain (finding) [facility] Work Phone: Medications Current Medications Medication Drug Class(es) Dates Sig (Normalized) Sig (Original) acetaminophen 500 mg oral tablet (20 sources) Start: 01-27-2021 take 2 tablets by mouth at bedtime Acetaminophen 500 mg Tablet Active 1000 mg PO AT BEDTIME January 27, 2021 12:00am PAIN Start: 01-27-2021 take 1000 mg by mout h at bedtime Acetaminophen Active 1000 MG PO AT BEDTIME January 27, 2021 3:46pm Start: 11-07-2020 Tylenol Extra Strength 500 mg oral tablet Dose : 1,000 mg = 2 tab(s), Oral, qHS, 0 Refill(s) Start Date: 11/07/20 Status: Ordered Repeat number: 1 amLODIPine 5 mg oral tablet (20 sources) Dihydropyridine Calcium Channel Criss Start: 06-26-2024 amLODIPine 5 mg oral tablet Dose : 10 mg = 2 tab(s), Oral, qDay, PER CARDIOLOGY - DOSE CHANGE, # 90 tab(s), 3 Refill(s), Pharmacy: [id number], Hypertension, 159, cm, 06/26/24 8:03:00 EDT, Height, kg, 06/26/24 8:03:00 EDT, Dosing Weight Start Date: 06/26/24 Status: Ordered Quantity: 90.0 Unit: tab(s) Repeat number: 4 Indications: Essential (primary) hypertension; Start: 06-07-2024 End: 06-07-2024 take 1 tablet by mouth once daily Amlodipine 5 mg tablet Discontinued 5 mg PO DAILY June 07, 2024 9:34am June 07, 2024 9:57am Start: 03-02-2024 End: 06-07-2024 take 2 tablets by mouth once daily Amlodipine 5 mg tablet Active 10 mg PO DAILY June 07, 2024 9:56am Start: 02-24-2024 amLODIPine 5 m g oral tablet Dose : 5 mg = 1 tab(s), Oral, qDay, # 90 tab(s), 1 Refill(s), Pharmacy: [place] [id number], Hypertension, 160, cm, 02/24/24 9:02:00 EST, Height, kg, 02/24/24 9:02:00 EST, Dosing Weight Start Date: 02/24/24 Status: Ordered Start: 09-20-2023 amLODIPine 5 m g oral tablet Dose : 5 mg = 1 tab(s), Oral, qDay, # 90 tab(s), 1 Refill(s), Pharmacy: [facility], Hypertension, 159.5, cm, 09/20/23 8:26:00 EDT, Height, kg, 09/20/23 8:26:00 EDT, Dosing Weight Start Date: 09/20/23 Status: Ordered Start: 02-11-2022 End: 03-02-2024 amLODIPine 5 mg oral tablet Dose : 5 mg = 1 tab(s), Oral, qDay, # 90 tab(s), 1 Refill(s), Pharmacy: [facility], Hypertension, 160.5, cm, 06/21/23 8:10:00 EDT, Height, kg, 06/21/23 8:10:00 EDT, Dosing Weight Start Date: 06/21/23 Status: Ordered Start: 08-04-2021 amLODIPine 5 m g oral tablet Dose : 5 mg = 1 tab(s), Oral, qDay, increased dose, # 90 tab(s), 1 Refill(s), Pharmacy: [facility], Hypertension, 159.7, cm, 08/04/21 8:40:00 EDT, Height Start Date: 08/04/21 Status: Ordered Start: 07-22-2021 End: 04-22-2022 take 1 tablet by mouth once daily Amlodipine 2.5 mg tablet Discontinued 2.5 mg PO DAILY 10 03July 22, 2021 12:00am April 22, 2022 11:12am aspirin 81 mg chewable tablet (20 sources) Platelet Aggregation Inhibitor, Nonsteroidal Anti-inflammatory Drug Start: 08-04-2021 aspirin 81 mg ora l tablet, chewable Dose : 81 mg = 1 tab(s), Oral, Daily, # 30 tab(s), 0 Refill(s) Start Date: 08/04/21 Status: Ordered Quantity: 30.0 Unit: tab(s) Repeat number: 1 Start: 03-11-2021 take 1 tablet by ryan th once daily Aspirin (Adult Aspirin Regimen) 81 mg tablet,delayed release (DR/EC) Active 81 mg PO DAILY March 11, 2021 1:00am [facility] atorvastatin 20 mg oral tablet (18 sources) HMG-CoA Reductase Inhibitor Start: 03-17-2021 End: 04-05-2024 take 1 tablet by mouth once daily Atorvastatin 20 mg tablet Active 20 mg PO DAILY 90 April 05, 2024 10:17am Calcium Carbonate / Cholecalciferol (2 sources) Vitamin D Start: 11-14-2018 take 1 tablet by mouth once daily calcium (as carbonate)-vitamin D 600 mg-200 intl units oral tablet Dose = 1 tab(s), Oral, qDay Start Date: 11/14/18 Status: Ordered ergocalciferol 1.25 mg oral capsule (6 sources) Provitamin D2 Compound Start: 01-27-2021 Ergocalciferol (Vitamin D2) 1,250 mcg (50,000 unit) capsule Active 1250 ug PO SUWE January 27, 2021 12:00am SUPPLEMENT Patient is concerned with the cost of the name brand prescription, wonders if there is a generic available at a lower cost. Start: 12-26-2020 Vitamin D2 1.2 5 mg (50,000 intl units) oral capsule Dose : 50,000 International_Unit = 1 cap(s), Oral, 2X/week, Increasing dose, # 26 cap(s), 4 Refill(s), Pharmacy: [facility], Vitamin D deficiency, 161, cm, 12/25/20 7:47:00 EDT, Height, kg, 12/25/20 7:47:00 EDT, Dosing Weight Start Date: 12/26/20 Status: Ordered fenofibrate 160 mg oral tablet (20 sources) Peroxisome Proliferator Receptor alpha Agonist Start: 06-26-2024 fenofibrate 160 mg o ral tablet Dose : 160 mg = 1 tab(s), Oral, qDay, # 90 tab(s), 3 Refill(s), Pharmacy: [facility], Hypercholesterolemia, 159, cm, 06/26/24 8:03:00 EDT, Height, kg, 06/26/24 8:03:00 EDT, Dosing Weight Start Date: 06/26/24 Status: Ordered Quantity: 90.0 Unit: tab(s) Repeat number: 4 Indications: Pure hypercholesterolemia, unspecified; Start: 02-24-2024 fenofibrate 16 0 mg oral tablet Dose : 160 mg = 1 tab(s), Oral, qDay, # 90 tab(s), 1 Refill(s), Pharmacy: [facility], Hypercholesterolemia, 160, cm, 02/24/24 9:02:00 EST, Height, kg, 02/24/24 9:02:00 EST, Dosing Weight Start Date: 02/24/24 Status: Ordered Start: 09-20-2023 fenofibrate 16 0 mg oral tablet Dose : 160 mg = 1 tab(s), Oral, qDay, # 90 tab(s), 1 Refill(s), Pharmacy: [facility], Hypercholesterolemia, 159.5, cm, 09/20/23 8:26:00 EDT, Height, kg, 09/20/23 8:26:00 EDT, Dosing Weight Start Date: 09/20/23 Status: Ordered Start: 06-21-2023 fenofibrate 16 0 mg oral tablet Dose : 160 mg = 1 tab(s), Oral, qDay, # 90 tab(s), 1 Refill(s), Pharmacy: [facility], Hypercholesterolemia, 160.5, cm, 06/21/23 8:10:00 EDT, Height, kg, 06/21/23 8:10:00 EDT, Dosing Weight Start Date: 06/21/23 Status: Ordered Start: 02-16-2023 fenofibrate 16 0 mg oral tablet Dose : 160 mg = 1 tab(s), Oral, qDay, # 90 tab(s), 1 Refill(s), Pharmacy: [facility], Hypercholesterolemia, 159.5, cm, 02/16/23 8:02:00 EST, Height, kg, 02/16/23 8:02:00 EST, Dosing Weight Start Date: 02/16/23 Status: Ordered Start: 09-14-2022 fenofibrate 16 0 mg oral tablet Dose : 160 mg = 1 tab(s), Oral, qDay, # 90 tab(s), 1 Refill(s), Pharmacy: [facility], Hypercholesterolemia, 160.5, cm, 09/14/22 8:31:00 EDT, Height, kg, 09/14/22 8:31:00 EDT, Dosing Weight Start Date: 09/14/22 Status: Ordered Start: 11-07-2020 fenofibrate 16 0 mg oral tablet Dose : 160 mg = 1 tab(s), Oral, qDay, # 90 tab(s), 0 Refill(s), Pharmacy: [facility], Hypercholesterolemia, 159, cm, 02/11/22 9:38:00 EDT, Height, kg, 02/11/22 9:38:00 EDT, Dosing Weight Start Date: 07/08/22 Status: Ordered Fish Oils (2 sources) Start: 11-07-2020 Fish Oil 1000 mg oral capsule Dose : 1,000 mg = 1 cap(s), Oral, qDay, # 90 cap(s), 0 Refill(s) Start Date: 11/07/20 Status: Ordered gabapentin 300 mg oral capsule (20 sources) Anti-epileptic Agent Start: 02-16-2023 End: 04-28-2025 gabapentin 300 mg oral capsule Dose : 300 mg = 1 cap(s), Oral, BID, # 180 cap(s), 1 Refill(s), Pharmacy: [facility], Multiple sclerosis, 157.5, cm, 10/30/24 8:20:00 EDT, Height, 64.5, kg, 10/30/24 8:20:00 EDT, Dosing Weight Start Date: 10/30/24 Stop Date: 04/28/25 Status: Ordered Quantity: 180.0 Unit: cap(s) Repeat number: 2 Indications: Multiple sclerosis; Start: 01-27-2021 End: 01-11-2023 gabapentin 300 mg oral capsu le Dose : 300 mg = 1 cap(s), Oral, BID, # 180 cap(s), 1 Refill(s), Pharmacy: [facility], Multiple sclerosis Left hip pain, 159, cm, 07/15/22 8:10:00 EDT, Height, 64.8, kg, 07/15/22 8:10:00 EDT, Dosing Weight Start Date: 07/15/22 Stop Date: 01/11/23 Status: Ordered levothyroxine sodium 0.1 mg oral tablet (20 sources) l-Thyroxine Start: 10-30-2024 levothyroxine 100 mcg (0.1 mg) oral tablet Dose : 100 mcg = 1 tab(s), Oral, qDay, Take 1 by mouth daily except hold on Mondays and Fridays, # 90 tab(s), 1 Refill(s), Pharmacy: [facility], Hypothyroidism, 157.5, cm, 10/30/24 8:20:00 EDT, Height, kg, 10/30/24 8:20:00 EDT, Dosing Weight Start Date: 10/30/24 Status: Ordered Quantity: 90.0 Unit: tab(s) Repeat number: 2 Indications: Hypothyroidism, unspecified; Start: 06-26-2024 levothyroxine 100 mcg (0.1 mg) oral tablet Dose : 100 mcg = 1 tab(s), Oral, qDay, Take 1 by mouth daily except hold on Mondays and Fridays, # 90 tab(s), 1 Refill(s), Pharmacy: [facility], Hypothyroidism, 159, cm, 06/26/24 8:03:00 EDT, Height, kg, 06/26/24 8:03:00 EDT, Dosing Weight Start Date: 06/26/24 Status: Ordered Quantity: 90.0 Unit: tab(s) Repeat number: 2 Indications: Hypothyroidism, unspecified; Start: 12-20-2023 levothyroxine 100 mcg (0.1 mg) oral tablet Dose : 100 mcg = 1 tab(s), Oral, qDay, Take 1 by mouth daily except hold on Mondays and Fridays, # 90 tab(s), 1 Refill(s), Pharmacy: [facility], Hypothyroidism, 158.5, cm, 12/20/23 8:00:00 EDT, Height, kg, 12/20/23 8:00:00 EDT, Dosing Weight Start Date: 12/20/23 Status: Ordered Start: 04-19-2023 levothyroxine 100 mcg (0.1 mg) oral tablet Dose : 100 mcg = 1 tab(s), Oral, qDay, Take 1 by mouth daily except hold on Mondays and Fridays, # 90 tab(s), 1 Refill(s), Pharmacy: [facility], Hypothyroidism, 159.9, cm, 04/19/23 8:11:00 EST, Height, kg, 04/19/23 8:05:00 EST, Dosing Weight Start Date: 04/19/23 Status: Ordered Start: 12-16-2022 levothyroxine 100 mcg (0.1 mg) oral tablet Dose : 100 mcg = 1 tab(s), Oral, qDay, # 90 tab(s), 1 Refill(s), Pharmacy: [facility], Hypothyroidism, 160.5, cm, 09/14/22 8:31:00 EDT, Height, kg, 09/14/22 8:31:00 EDT, Dosing Weight Start Date: 12/16/22 Status: Ordered Start: 12-14-2022 levothyroxine 100 mcg (0.1 mg) oral tablet Dose : 100 mcg = 1 tab(s), Oral, qDay, # 90 tab(s), 1 Refill(s), Pharmacy: [facility], Hypothyroidism, 160.5, cm, 09/14/22 8:31:00 EDT, Height, kg, 09/14/22 8:31:00 EDT, Dosing Weight Start Date: 12/14/22 Status: Ordered Start: 06-08-2022 levothyroxine 100 mcg (0.1 mg) oral tablet Dose : 100 mcg = 1 tab(s), Oral, qDay, # 90 tab(s), 1 Refill(s), Pharmacy: [facility], Hypothyroidism, 159, cm, 02/11/22 9:38:00 EDT, Height, kg, 02/11/22 9:38:00 EDT, Dosing Weight Start Date: 06/08/22 Status: Ordered Start: 09-16-2021 levothyroxine 100 mcg (0.1 mg) oral tablet Dose : 100 mcg = 1 tab(s), Oral, qDay, # 90 tab(s), 1 Refill(s), Pharmacy: [facility], Hypothyroidism, 159.7, cm, 09/16/21 8:03:00 EDT, Height, kg, 09/16/21 8:03:00 EDT, Dosing Weight Start Date: 09/16/21 Status: Ordered Start: 01-27-2021 take 1 tablet by ryan once daily Levothyroxine 100 mcg tablet Active 100 ug PO DAILY January 27, 2021 12:00am thyroid Start: 11-07-2020 levothyroxine 100 mcg (0.1 mg) oral tablet Dose : 100 mcg = 1 tab(s), Oral, qDay, # 90 tab(s), 1 Refill(s), Pharmacy: [facility], Hypothyroidism, 157.5, cm, 11/07/20 8:35:00 EDT, Height, kg, 11/07/20 8:35:00 EDT, Dosing Weight Start Date: 11/07/20 Status: Ordered losartan potassium 100 mg oral tablet (20 sources) Angiotensin 2 Receptor Criss Start: 02-11-2022 End: 04-21-2023 losartan 100 mg oral tablet Dose : 100 mg = 1 tab(s), Oral, qDay, # 90 tab(s), 1 Refill(s), Pharmacy: [facility], Hypertension, 159, cm, 06/26/24 8:03:00 EDT, Height, kg, 06/26/24 8:03:00 EDT, Dosing Weight Start Date: 08/07/24 Status: Ordered Quantity: 90.0 Unit: tab(s) Repeat number: 2 Indications: Essential (primary) hypertension; Start: 09-16-2021 losartan 100 m g oral tablet Dose : 100 mg = 1 tab(s), Oral, qDay, # 90 tab(s), 1 Refill(s), Pharmacy: [facility], Hypertension, 159.7, cm, 09/16/21 8:03:00 EDT, Height, kg, 09/16/21 8:03:00 EDT, Dosing Weight Start Date: 09/16/21 Status: Ordered Start: 07-22-2021 End: 04-22-2022 take 2 tablets by mouth once daily Losartan 50 mg tablet Discontinued 100 mg PO DAILY July 22, 2021 8:39am April 22, 2022 11:09am blood pressure Start: 07-22-2021 End: 04-22-2022 take 100 mg by mouth once daily Losartan Discontinued 100 MG PO DAILY July 22, 2021 7:39am April 22, 2022 10:09am Start: 05-05-2021 losartan 100 m g oral tablet Dose : 100 mg = 1 tab(s), Oral, qDay, Increased dose, # 90 tab(s), 1 Refill(s), Pharmacy: [facility], Hypertension, 159.6, cm, 05/05/21 7:57:00 EST, Height, kg, 05/05/21 7:57:00 EST, Dosing Weight Start Date: 05/05/21 Status: Ordered Start: 02-04-2021 End: 07-22-2021 take 1 tablet by mouth once daily Losartan 50 mg tablet Discontinued 50 mg PO DAILY March 11, 2021 1:00am July 22, 2021 8:40am blood pressure Start: 01-27-2021 End: 03-11-2021 take 1 tablet by mouth once daily Losartan 25 mg tablet Discontinued 25 mg PO DAILY January 27, 2021 12:00am March 11, 2021 10:30am 24 hr metoprolol succinate 50 mg extended release oral tablet (20 sources) beta-Adrenergic Criss Start: 06-07-2024 End: 10-10-2024 take 2 tablets by mouth once daily Metoprolol Succinate (Toprol Xl) 50 mg tablet extended release 24 hr Active 25 mg PO DAILY 45 October 10, 2024 12:43pm Start: 12-20-2023 End: 06-07-2024 take 1 tablet by mouth once daily Metoprolol Succinate (Toprol Xl) 50 mg tablet extended release 24 hr Discontinued 50 mg PO DAILY March 02, 2024 9:39am June 07, 2024 9:57am Start: 12-08-2023 End: 03-02-2024 take 2 tablets by mouth once daily Metoprolol Succinate (Toprol Xl) 50 mg tablet extended release 24 hr Discontinued 25 mg PO DAILY 90 3 Edmund 29th, 2024 10:33am March 02, 2024 9:40am Start: 05-05-2021 metoprolol suc cinate 50 mg oral TABLET extended release Dose : 50 mg = 1 tab(s), Oral, qDay, Managed by cardiology, # 90 tab(s), 3 Refill(s), other reason (Rx), Hypertension Start Date: 05/05/21 Status: Ordered Start: 03-11-2021 End: 12-08-2023 take 1 tablet by mouth once daily Metoprolol Succinate (Toprol Xl) 50 mg tablet extended release 24 hr Discontinued 50 mg PO DAILY 90 March 11, 2023 3:14pm December 08, 2023 10:34am 24 hr oxybutynin chloride 10 mg extended release oral tablet (20 sources) Cholinergic Muscarinic Antagonist Start: 06-26-2024 take 1 tablet by mouth every hour, then take 1 tablet by mouth once daily oxybutynin 10 mg/24 hr oral tablet, extended release Dose : 10 mg = 1 tab(s), Oral, qDay, # 90 tab(s), 3 Refill(s), Pharmacy: [facility], Urge incontinence of urine, 159, cm, 06/26/24 8:03:00 EDT, Height, kg, 06/26/24 8:03:00 EDT, Dosing Weight Start Date: 06/26/24 Status: Ordered Quantity: 90.0 Unit: tab(s) Repeat number: 4 Indications: Urge incontinence; Start: 02-24-2024 take 1 tablet by ryan th every hour, then take 1 tablet by mouth once daily oxybutynin 10 mg/24 hr oral tablet, extended release Dose : 10 mg = 1 tab(s), Oral, qDay, # 90 tab(s), 1 Refill(s), Pharmacy: [facility], Urge incontinence of urine, 160, cm, 02/24/24 9:02:00 EST, Height, kg, 02/24/24 9:02:00 EST, Dosing Weight Start Date: 02/24/24 Status: Ordered Start: 09-20-2023 take 1 tablet by ryan th every hour, then take 1 tablet by mouth once daily oxybutynin 10 mg/24 hr oral tablet, extended release Dose : 10 mg = 1 tab(s), Oral, qDay, # 90 tab(s), 1 Refill(s), Pharmacy: [facility], Urge incontinence of urine, 159.5, cm, 09/20/23 8:26:00 EDT, Height, kg, 09/20/23 8:26:00 EDT, Dosing Weight Start Date: 09/20/23 Status: Ordered Start: 06-21-2023 take 1 tablet by ryan th every hour, then take 1 tablet by mouth once daily oxybutynin 10 mg/24 hr oral tablet, extended release Dose : 10 mg = 1 tab(s), Oral, qDay, # 90 tab(s), 1 Refill(s), Pharmacy: [facility], Urge incontinence of urine, 160.5, cm, 06/21/23 8:10:00 EDT, Height, kg, 06/21/23 8:10:00 EDT, Dosing Weight Start Date: 06/21/23 Status: Ordered Start: 02-16-2023 take 1 tablet by ryan th every hour, then take 1 tablet by mouth once daily oxybutynin 10 mg/24 hr oral tablet, extended release Dose : 10 mg = 1 tab(s), Oral, qDay, # 90 tab(s), 1 Refill(s), Pharmacy: [facility], Urge incontinence of urine, 159.5, cm, 02/16/23 8:02:00 EST, Height, kg, 02/16/23 8:02:00 EST, Dosing Weight Start Date: 02/16/23 Status: Ordered Start: 07-15-2022 take 1 tablet by ryan th every hour, then take 1 tablet by mouth once daily oxybutynin 10 mg/24 hr oral tablet, extended release Dose : 10 mg = 1 tab(s), Oral, qDay, # 90 tab(s), 1 Refill(s), Pharmacy: [facility], Urge incontinence of urine, 159, cm, 07/15/22 8:10:00 EDT, Height, kg, 07/15/22 8:10:00 EDT, Dosing Weight Start Date: 07/15/22 Status: Ordered Start: 04-22-2022 take 1 tablet by ryan th once daily Oxybutynin Chloride 10 mg tablet extended release 24hr Active 10 mg PO DAILY April 22, 2022 1:00am Start: 02-11-2022 take 1 tablet by ryan th every hour, then take 1 tablet by mouth once daily oxybutynin 10 mg/24 hr oral tablet, extended release Dose : 10 mg = 1 tab(s), Oral, qDay, # 90 tab(s), 1 Refill(s), Pharmacy: [facility], Urge incontinence of urine, 159, cm, 02/11/22 9:38:00 EDT, Height, kg, 02/11/22 9:38:00 EDT, Dosing Weight Start Date: 02/11/22 Status: Ordered Start: 08-04-2021 take 1 tablet by ryan th every hour, then take 1 tablet by mouth once daily oxybutynin 10 mg/24 hr oral tablet, extended release Dose : 10 mg = 1 tab(s), Oral, qDay, increased dose, # 90 tab(s), 1 Refill(s), Pharmacy: [facility], Urge incontinence of urine, 159.7, cm, 08/04/21 8:40:00 EDT, Height Start Date: 08/04/21 Status: Ordered Start: 02-04-2021 take 1 tablet by ryan every hour, then take 1 tablet by mouth once daily oxybutynin 5 mg/24 hours oral tablet, extended release Dose : 5 mg = 1 tab(s), Oral, qDay, # 30 tab(s), 5 Refill(s), Pharmacy: [facility], Urge incontinence of urine, 159, cm, 02/04/21 14:52:00 EDT, Height, kg, 02/04/21 14:52:00 EDT, Dosing Weight Start Date: 02/04/21 Status: Ordered Start: 01-27-2021 End: 04-22-2022 take 1 tablet by mouth once daily Oxybutynin Chloride 5 mg tablet extended release 24hr Discontinued 5 mg PO DAILY January 27, 2021 12:00am April 22, 2022 11:11am bladder 24 hr venlafaxine 37.5 mg extended release oral capsule (20 sources) Serotonin and Norepinephrine Reuptake Inhibitor Start: 06-07-2024 venlafaxine 37.5 mg oral capsule, extended release Dose : 37.5 mg = 1 cap(s), Oral, qDay, Take 1 p.o. daily., # 90 cap(s), 1 Refill(s), Pharmacy: [facility], [place] Mild recurrent major depression, 157.5, cm, 10/30/24 8:20:00 EDT, Height, kg, 10/30/24 8:20:00 EDT, Dosing Weight Start Date: 10/30/24 Status: Ordered Quantity: 90.0 Unit: cap(s) Repeat number: 2 Indications: Major depressive disorder, recurrent, mild; Nightmare disorder; Start: 02-24-2024 venlafaxine 37 .5 mg oral capsule, extended release Dose : 37.5 mg = 1 cap(s), Oral, qDay, Take 1 p.o. daily., # 90 cap(s), 1 Refill(s), Pharmacy: [facility], [place] Mild recurrent major depression, 160, cm, 02/24/24 9:02:00 EST, Height, kg, 02/24/24 9:02:00 EST, Dosing Weight Start Date: 02/24/24 Status: Ordered Start: 12-08-2023 End: 2024 take 1 capsule by mouth once daily Venlafaxine 75 mg capsule,extended release 24hr Discontinued 75 mg PO DAILY December 08, 2023 9:36am 2024 8:25am Alternating with 37.5 mg capsule every other day Start: 09-20-2023 venlafaxine 37 .5 mg oral capsule, extended release Dose : 37.5 mg = 1 cap(s), Oral, qDay, Take 1 p.o. daily., # 90 cap(s), 1 Refill(s), Pharmacy: [facility], [place] Mild recurrent major depression, 159.5, cm, 09/20/23 8:26:00 EDT, Height, kg, 09/20/23 8:26:00 EDT, Dosing Weight Start Date: 09/20/23 Status: Ordered Start: 04-21-2023 End: 12-08-2023 take 1 capsule by mouth every other day Venlafaxine 75 mg capsule,extended release 24hr Discontinued 75 mg PO every other day April 21, 2023 9:40am December 08, 2023 9:36am Alternating with 37.5 mg capsule every other day Start: 04-21-2023 End: 12-08-2023 take 1 capsule by mouth every other day Venlafaxine 37.5 mg capsule,extended release 24hr Discontinued 37.5 mg PO every other day April 21, 2023 1:00am December 08, 2023 9:36am Alternating with 75 mg capsule every other day Start: 04-19-2023 venlafaxine 37 .5 mg oral capsule, extended release Dose : 37.5 mg = 1 cap(s), Oral, qDay, Take 1 p.o. daily. Discontinue 75 mg capsule please, # 90 cap(s), 1 Refill(s), Pharmacy: [facility], Nightmares Mild recurrent major depression, 159.9, cm, 04/19/23 8:11:00 EST, Height, kg, 04/19/23 8:05:00 EST, Dosing Weight Start Date: 04/19/23 Status: Ordered Start: 02-16-2023 take 1 capsule by [facility] every other day venlafaxine 37.5 mg oral capsule, extended release Dose : 37.5 mg = 1 cap(s), Oral, Every other day, Alternate with 75 mg p.o. every other day. (Titrating to possibly wean down), # 90 cap(s), 1 Refill(s), Pharmacy: [facility], Depression Nightmares, 159.5, cm, 02/16/23 8:02:00 EST, Height, kg, 02/16/23 8:02:00 EST, Dosing Weight Start Date: 02/16/23 Status: Ordered Start: 02-16-2023 take 1 capsule by [facility] every other day Effexor XR 75 mg oral capsule, extended release Dose : 75 mg = 1 cap(s), Oral, Every other day, Alternate with 37.5 mg orally every other day, # 90 cap(s), 1 Refill(s), Pharmacy: [facility], Depression Nightmares, 159.5, cm, 02/16/23 8:02:00 EST, Height, kg, 02/16/23 8:02:00 EST, Dosing Weight Start Date: 02/16/23 Status: Ordered Start: 02-11-2022 End: 04-21-2023 Effexor XR 75 mg oral capsul e, extended release Dose : 75 mg = 1 cap(s), Oral, qDay, # 90 cap(s), 1 Refill(s), Pharmacy: [facility], Depression, 159, cm, 07/15/22 8:10:00 EDT, Height, kg, 07/15/22 8:10:00 EDT, Dosing Weight Start Date: 07/15/22 Status: Ordered Start: 09-16-2021 Effexor XR 75 mg oral capsule, extended release Dose : 75 mg = 1 cap(s), Oral, qDay, Please discontinue the Effexor 150 mg prescription, # 90 cap(s), 1 Refill(s), Pharmacy: [facility], Depression, 159.7, cm, 09/16/21 8:03:00 EDT, Height, kg, 09/16/21 8:03:00 EDT, Dosing Weight Start Date: 09/16/21 Status: Ordered Start: 05-05-2021 venlafaxine 15 0 mg oral capsule, extended release Dose : 150 mg = 1 cap(s), Oral, qDay, # 90 cap(s), 1 Refill(s), Pharmacy: [id number], Depression, 159.6, cm, 05/05/21 7:57:00 EST, Height, kg, 05/05/21 7:57:00 EST, Dosing Weight Start Date: 05/05/21 Status: Ordered Start: 01-27-2021 End: 04-22-2022 take 1 capsule by mouth once daily Venlafaxine 150 mg capsule,extended release 24hr Discontinued 150 mg PO DAILY January 27, 2021 12:00am April 22, 2022 11:11am mental health Start: 11-07-2020 venlafaxine 15 0 mg oral capsule, extended release Dose : 150 mg = 1 cap(s), Oral, qDay, # 90 cap(s), 1 Refill(s), Pharmacy: [id number], Depression, 157.5, cm, 11/07/20 8:35:00 EDT, Height, kg, 11/07/20 8:35:00 EDT, Dosing Weight Start Date: 11/07/20 Status: Ordered Vitamin D2 1.25 mg (50,000 intl units) oral capsule (18 sources) Start: 06-26-2024 take 1 capsule by mouth once, then take 1 capsule by mouth every week Vitamin D2 1.25 mg (50,000 intl units) oral capsule Dose : 50,000 International_Unit = 1 cap(s), Oral, 2X/week, # 26 cap(s), 4 Refill(s), Pharmacy: [facility], Vitamin D deficiency Osteoporosis, 159, cm, 06/26/24 8:03:00 EDT, Height, kg, 06/26/24 8:03:00 EDT, Dosing Weight Start Date: 06/26/24 Status: Ordered Quantity: 26.0 Unit: cap(s) Repeat number: 5 Indications: Vitamin D deficiency, unspecified; Age-related osteoporosis without current pathological fracture; Start: 06-26-2024 take 1 capsule by mo uth once, then take 1 capsule by mouth every week Vitamin D2 1.25 mg (50,000 intl units) oral capsule Dose : 50,000 International_Unit = 1 cap(s), Oral, 2X/week, # 26 cap(s), 4 Refill(s), Pharmacy: [facility], Vitamin D deficiency Osteoporosis, 159, cm, 06/26/24 8:03:00 EDT, Height, kg, 06/26/24 8:03:00 EDT, Dosing Weight Start Date: 06/26/24 Status: Ordered Quantity: 26.0 Unit: cap(s) Repeat number: 5 Indications: Age-related osteoporosis without current pathological fracture; Vitamin D deficiency, unspecified; Start: 02-16-2023 Vitamin D2 1.2 5 mg (50,000 intl units) oral capsule Dose : 50,000 International_Unit = 1 cap(s), Oral, 2X/week, # 26 cap(s), 4 Refill(s), Pharmacy: [id number], Vitamin D deficiency Osteoporosis, 159.5, cm, 02/16/23 8:02:00 EST, Height, kg, 02/16/23 8:02:00 EST, Dosing Weight Start Date: 02/16/23 Status: Ordered Start: 02-11-2022 Vitamin D2 1.2 5 mg (50,000 intl units) oral capsule Dose : 50,000 International_Unit = 1 cap(s), Oral, 2X/week, # 26 cap(s), 4 Refill(s), Pharmacy: [facility], Vitamin D deficiency, 159, cm, 02/11/22 9:38:00 EDT, Height, kg, 02/11/22 9:38:00 EDT, Dosing Weight Start Date: 02/11/22 Status: Ordered Start: 12-26-2020 Vitamin D2 1.2 5 mg (50,000 intl units) oral capsule Dose : 50,000 International_Unit = 1 cap(s), Oral, 2X/week, Increasing dose, # 26 cap(s), 4 Refill(s), Pharmacy: [facility], Vitamin D deficiency, 161, cm, 12/25/20 7:47:00 EDT, Height, kg, 12/25/20 7:47:00 EDT, Dosing Weight Start Date: 12/26/20 Status: Ordered Completed/Discontinued Medications Medication Drug Class(es) Dates Sig (Normalized) Sig (Original) amoxicillin 500 mg oral capsule (1 source) Penicillin-class Antibacterial Start: 04-21-2023 End: 03-02-2024 take 4 capsules by mouth once as needed Amoxicillin 500 mg capsule Discontinued 2000 mg PO ONCE as needed April 21, 2023 1:00am March 02, 2024 9:38am 1 hour prior to dental visits clonazePAM 0.5 mg oral tablet (4 sources) Benzodiazepine Start: 06-07-2024 clonazePAM 0.5 mg oral tablet Dose : 0.75 mg = 1.5 tab(s), Oral, qHS, 0 Refill(s), 66.7 Start Date: 06/26/24 Status: Ordered Repeat number: 1 clopidogrel 75 mg oral tablet (20 sources) [id number] Platelet Inhibitor Start: 05-05-2021 End: 04-05-2024 take 1 tablet by mouth once daily Clopidogrel 75 mg tablet Discontinued 75 mg PO DAILY 90 April 14, 2023 11:11am April 21, 2023 10:01am Start: 04-15-2021 End: 04-08-2022 take 4 tablets by mouth once daily, then take 1 tablet by mouth once daily Clopidogrel 75 mg tablet Discontinued 75 mg PO DAILY 90 April 16, 2021 5:48pm April 08, 2022 2:38pm Take 4 tablets 12 hours after last dose of brilinta then 1 tablet daily. 1 ml denosumab 60 mg/ml prefilled syringe (18 sources) RANK Ligand Inhibitor Start: 08-30-2024 Prolia 60 mg/mL subcutaneous solution Dose : 60 mg = 1 mL, Subcutaneous, q6mo, # 1 mL, 1 Refill(s), Osteoporosis Start Date: 08/30/24 Status: Ordered Quantity: 1.0 Unit: mL Repeat number: 2 Indications: Age-related osteoporosis without current pathological fracture; Start: 02-28-2024 Prolia 60 mg/m L subcutaneous solution Dose : 60 mg = 1 mL, Subcutaneous, q6mo, # 1 mL, 1 Refill(s), Osteoporosis Start Date: 02/28/24 Status: Ordered Start: 07-29-2023 Prolia 60 mg/m L subcutaneous solution Dose : 60 mg = 1 mL, Subcutaneous, q6mo, # 1 mL, 1 Refill(s), Osteoporosis Start Date: 07/29/23 Status: Ordered Start: 02-15-2023 Prolia 60 mg/m L subcutaneous solution Dose : 60 mg = 1 mL, Subcutaneous, q6mo, # 1 mL, 1 Refill(s), Osteoporosis Start Date: 02/15/23 Status: Ordered Start: 01-20-2021 Prolia 60 mg/m L subcutaneous solution Dose : 60 mg = 1 mL, Subcutaneous, q6mo, # 1 mL, 1 Refill(s), Osteoporosis, Dosing Weight Start Date: 01/20/21 Status: Ordered Prolia 60 mg/mL subcutaneous solution (3 sources) Start: 01-20-2021 Prolia 60 mg/m L subcutaneous solution Dose : 60 mg = 1 mL, Subcutaneous, q6mo, # 1 mL, 1 Refill(s), Osteoporosis, Dosing Weight Start Date: 01/20/21 Status: Ordered Start: 07-09-2020 Prolia 60 mg/m L subcutaneous solution Dose : 60 mg = 1 mL, Subcutaneous, q6mo, # 1 mL, 1 Refill(s), Osteoporosis, 161, cm, 06/27/20 9:24:00 EDT, Height, kg, 06/27/20 9:24:00 EDT, Dosing Weight Start Date: 07/09/20 Status: Ordered 12 hr ranolazine 500 mg extended release oral tablet (4 sources) Anti-anginal Start: 04-22-2022 End: 04-21-2023 take 1 tablet by mouth twice daily Ranolazine (Ranexa) 500 mg tablet extended release 12 hr Discontinued 500 mg PO TWICE A DAY 180 December 22, 2022 12:18pm April 21, 2023 9:40am ticagrelor 90 mg oral tablet (8 sources) Start: 03-17-2021 End: 04-15-2021 take 1 tablet by mouth twice daily Ticagrelor (Brilinta) 90 mg Tablet Discontinued 90 mg PO TWICE A DAY March 30, 2021 1:00am April 15, 2021 3:33pm Ordered by Dr. Buenrostro 03/16/2021 10:26 Patient is concerend with cost ($400.00) and would like to see about another presciption coupon or changing over to less expensive prescription. Problems Active Problems Problem Classification Problem Date Documented Date Episodic/Chronic Chronic kidney disease (20 sources) Chronic kidney disease stage 3; Translations: [Chronic kidney disease, stage 3 unspecified] 11-16-2018 Chronic Coronary atherosclerosis and other heart disease (8 sources) Coronary atherosclerosis; Translations: [Atherosclerotic heart disease of [place] coronary artery without angina pectoris] Onset: 2024 Chronic Coronary atherosclerosis and other heart disease (7 sources) Presence of coronary angioplasty implant and graft; Translations: [Percutaneous transluminal coronary angioplasty status] Onset: 03-16-2021 Episodic Disorders of lipid metabolism (20 sources) Hypercholesterolemia; Translations: [Hyperlipidemia] Onset: 12-08-2023 2020 Chronic Essential hypertension (20 sources) Hypertensive disorder; Translations: [Essential hypertension] Onset: 04-19-2023 12-25-2020 Chronic Genitourinary symptoms and ill-defined conditions (20 sources) Urge incontinence of urine 12-25-2020 Chronic Immunizations and screening for infectious disease (18 sources) Viral screening status; Translations: [Encounter for screening for other viral diseases] Episodic Miscellaneous mental health disorders (12 sources) 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 Mood disorders (20 sources) Depressive disorder; Translations: [Recurrent major depressive episodes, mild ] 11-16-2018 Chronic Multiple sclerosis (20 sources) Multiple sclerosis; Translations: [Multiple sclerosis] 11-14-2018 Chronic Nonspecific chest pain (20 sources) Chest pain on exertion; Translations: [Chest pain, unspecified] Onset: 01-30-2024 02-04-2021 Episodic Nutritional deficiencies (20 sources) Vitamin D deficiency; Translations: [Vitamin D deficiency, unspecified] 2020 Chronic Osteoarthritis (1 source) Osteoarthritis of hip; Translations: [Unilateral post-traumatic osteoarthritis, left hip] Chronic Osteoporosis (20 sources) Osteoporosis 06-27-2020 Chronic Other aftercare (1 source) Aftercare following joint replacement surgery; Translations: [Aftercare following joint replacement surgery] Chronic Other connective tissue disease (1 source) Hip joint prosthesis present; Translations: [Presence of left artificial hip joint] Chronic Other connective tissue disease (1 source) Iliotibial band friction syndrome; Translations: [Iliotibial band syndrome, left leg] Episodic Other connective tissue disease (1 source) Trochanteric bursitis; Translations: [Trochanteric bursitis, left hip] Episodic Other connective tissue disease (1 source) Tendinitis of left knee; Translations: [Patellar tendinitis, left knee] Episodic Other connective tissue disease (1 source) Musculoskeletal symptom; Translations: [Other symptoms and signs involving the musculoskeletal system] Episodic Other lower respiratory disease (4 sources) Dyspnea; Translations: [Dyspnea, unspecified] 04-06-2022 Episodic Other nervous system disorders (1 source) Abnormal gait; Translations: [Other abnormalities of gait and mobility] Episodic Other nervous system disorders (1 source) Incoordination; Translations: [Other lack of coordination] Episodic Other non-traumatic joint disorders (20 sources) Knee pain 11-07-2020 Episodic Other non-traumatic joint disorders (1 source) Pain of left hip joint; Translations: [Pain in left hip] Episodic Other non-traumatic joint disorders (14 sources) Hip pain 07-15-2022 Episodic Other nutritional; endocrine; and metabolic disorders (17 sources) Overweight in adulthood with body mass index of 25 or more but less than 30 02-11-2022 Episodic Other upper respiratory disease (20 sources) Seasonal allergy 10-03-2019 Chronic Residual codes; unclassified (3 sources) REM sleep behavior disorder 06-26-2024 Chronic Residual codes; unclassified (20 sources) Needs influenza immunization 02-04-2021 Episodic Residual codes; unclassified (20 sources) Requires vaccination 12-25-2020 Episodic Residual codes; unclassified (14 sources) Preoperative state 07-15-2022 Episodic Thyroid disorders (20 sources) Hypothyroidism; Translations: [Hypothyroidism, unspecified] 11-14-2018 Chronic Unclassified (20 sources) Patient encounter status 12-27-2018 Unclassified (17 sources) Influenza vaccination declined 02-11-2022 Unclassified (17 sources) Never used tobacco 02-11-2022 Past or Other Problems Problem Classification Problem Date Documented Da te Episodic/Chronic Cardiac dysrhythmias (3 sources) Palpitations; Translations: [Bradycardia] Onset: 12-08-2023 10-30-2024 Episodic Other screening for suspected conditions (not mental disorders or infectious disease) (5 sources) Diabetic monitoring status; Translations: [Encounter for screening for diabetes mellitus] Onset: 03-16-2024 Episodic Results Test Name Value Interpretation Reference Range Facility Basic Metabolic Profile (BMP )on 2024 BUN/CRE 17.9 RATIO Normal 10- [facility] Comment on above: Performed By: #### L 500.2500, L100.0100 #### [facility] [address] [place], [address] Calcium [Mass/Vol] 9.7 mg/dL Normal 7.6-11.0 [facility] Comment on above: Performed By: #### L 500.2500, L100.0100 #### [facility] [address] [place], [address] Chloride [Moles/Vol] 107 mmol/L Normal 98-[address] [facility] Comment on above: Performed By: #### L 500.2500, L100.0100 #### [facility] [address] [place], [address] CO2 [Moles/Vol] 21.9 mmol/L Normal 21.0-32.0 [facility] Comment on above: Performed By: #### L 500.2500, L100.0100 #### [facility] [address] [place], [address] Creatinine [Mass/Vol] 1.27 mg/dL High 0.70-1.20 [facility] Comment on above: Performed By: #### L 500.2500, L100.0100 #### [facility] [address] [place], [address] GAP 11 Normal 5-15 [facility] Comment on above: Performed By: #### L 500.2500, L100.0100 #### [facility] [address] [place], [address] GFR/1.73 sq M.predicted among non-blacks MDRD (S/P/Bld) [Vol rate/Area] 44 mL/min/{1.73_m2} Low >60 [facility] Comment on above: Result Comment: mL/m in/1.73m2 CKD-EPI Creatinine Equation (2020) Performed By: #### L 500.2500, L100.0100 #### [facility] [address] [place], [address] Glucose [Mass/Vol] 87 mg/dL Normal 70-99 [facility] Comment on above: Performed By: #### L 500.2500, L100.0100 #### [facility] [address] [place], [address] Potassium [Moles/Vol] 4.3 mmol/L Normal 3.3-5.1 [facility] Comment on above: Performed By: #### L 500.2500, L100.0100 #### [facility] [address] [place], [address] Sodium [Moles/Vol] 140 mmol/L Normal 133-145 [facility] Comment on above: Performed By: #### L 500.2500, L100.0100 #### [facility] [address] [place], [address] Urea nitrogen [Mass/Vol] 23 mg/dL High 4-19 [facility] Comment on above: Performed By: #### L 500.2500, L100.0100 #### [facility] [address] [place], [address] CBC W/Diff, Automatedon - Absolute Lymph 1.37 X10 3/uL Normal 0.83-4.51 [facility] Comment on above: Performed By: #### L 500.2500, L100.0100 #### [facility] [address] [place], [address] Absolute Neut 4.3 X10 3/uL Normal 2.0-7.7 [facility] Comment on above: Performed By: #### L 500.2500, L100.0100 #### [facility] [address] [place], [address] Basophils/100 WBC (Bld) 0.3 % Normal 0-1 [facility] Comment on above: Performed By: #### L 500.2500, L100.0100 #### [facility] [address] [place], [address] Eosinophils/100 WBC (Bld) 3.6 % Normal 0-5 [facility] Comment on above: Performed By: #### L 500.2500, L100.0100 #### [facility] [address] [place], [address] Erythrocyte distribution width (RBC) [Ratio] 12.4 % Normal 11.6-14.6 [facility] Comment on above: Performed By: #### L 500.2500, L100.0100 #### [facility] [address] [place], [address] Hematocrit (Bld) [Volume fraction] 41.1 % Normal 37-47 [facility] Comment on above: Performed By: #### L 500.2500, L100.0100 #### [facility] [address] [place], [address] Hemoglobin (Bld) [Mass/Vol] 13.7 g/dL Normal 12.0-15.0 [facility] Comment on above: Performed By: #### L 500.2500, L100.0100 #### [facility] [address] [place], [address] IG% 0.300 Normal 0.0-0.9 [facility] Comment on above: Result Comment: IG% - Immature Granulocytes (promyelocytes, myelocytes and metamyelocytes) > 1% indicates that a LEFT SHIFT is Present. Performed By: #### L 500.2500, L100.0100 #### [facility] [address] [place], [address] Lymphocytes/100 WBC (Bld) 21.2 % Normal 19-41 [facility] Comment on above: Performed By: #### L 500.2500, L100.0100 #### [facility] [address] [place], [address] MCH (RBC) [Entitic mass] 30.9 pg Normal 27.0-32.0 [facility] Comment on above: Performed By: #### L 500.2500, L100.0100 #### [facility] [address] [place], [address] MCHC (RBC) [Mass/Vol] 33.3 g/dL Normal 32-36 [facility] Comment on above: Performed By: #### L 500.2500, L100.0100 #### [facility] [address] [place], [address] MCV (RBC) [Entitic vol] 92.8 fL Normal 81-99 [facility] Comment on above: Performed By: #### L 500.2500, L100.0100 #### [facility] [address] [place], [address] Monocytes/100 WBC (Bld) 8.2 % Normal 0-10 [facility] Comment on above: Performed By: #### L 500.2500, L100.0100 #### [facility] [address] [place], [address] Neutrophils/100 WBC (Bld) 66.4 % Normal 47-70 [facility] Comment on above: Performed By: #### L 500.2500, L100.0100 #### [facility] [address] [place], [address] Nucleated RBC (Bld) [#/Vol] 0 10*3/uL Normal 0-5 [facility] Comment on above: Performed By: #### L 500.2500, L100.0100 #### [facility] [address] [place], [address] Platelet mean volume (Bld) [Entitic vol] 9.7 fL Normal 6.2-12.0 [facility] Comment on above: Performed By: #### L 500.2500, L100.0100 #### [facility] [address] [place], [address] Platelets (Bld) [#/Vol] 342 10*3/uL Normal 150-450 [facility] Comment on above: Performed By: #### L 500.2500, L100.0100 #### [facility] [address] [place], [address] RBC (Bld) [#/Vol] 4.43 10*6/uL Normal 4.2-5.4 [facility] Comment on above: Performed By: #### L 500.2500, L100.0100 #### [facility] [address] [place], [address] RDW SD 42.5 fl Normal 35.1-43.9 [facility] Comment on above: Performed By: #### L 500.2500, L100.0100 #### [facility] [address] [place], [address] WBC (Bld) [#/Vol] 6.5 10*3/uL Normal 4.4-11.0 [facility] Comment on above: Performed By: #### L 500.2500, L100.0100 #### [facility] [address] [place], [address] Cardiology Visit Reporton Cardiology Visit Report [facility] [address] [place], [place] [address] OFFICE VISIT Date of Service: 11/06/24 MR#: [id number] Acct: [id number] Name: SOREN MCDANIELS Rep #: [id number] : 1950 Provider: CAROL Wilkerson rts Age/Sex: 74/F Location: [facility] [place] Status: Signed HPI HPI History of Present Illness Surgical H P: Yes Details: Pleasant 74-year-old lady who presents to the office today for a cardiovascular follow-up visit. She has a history of hypertension, hypothyroidism, multiple sclerosis who had been having exertional chest discomfort. She was admitted to the hospital in January 2021 with exertional chest pain, lightheadedness, nausea and shortness of breath. She ruled out for myocardial infarction and underwent a stress test where she exercised to a moderate workload with no evidence of angina. Nuclear images did not demonstrate any evidence of ischemia. A CAT scan performed also did not demonstrate any evidence of pulmonary embolism. She continued to have chest tightness when she exerted herself. She eventually came in and she underwent a heart catheterization on 03/16/2021 that showed high-grade stenosis noted in diagonal vessel. She proceeded with drug-eluting stent placement to diagonal 1. Mid circumflex noted 50% stenosis and mid RCA showed 40% stenosis. Left main was considered to be nonobstructive. Exercise stress test in December 2023 was negative for ischemia at high workload From a cardiac standpoint, the patient is doing well. She does acknowledge occasional racing sensation. She states that she just wore an event monitor ordered by her PCP. She has not heard of the results yet. She does acknowledge left sided chest pain. This occurs with over exertion. She describes it as someone is standing on her chest, and similar to her previous cardiac event. She does acknowledge SOB with climbing stairs. This is nothing new or worsening. She denies Orthopnea, and PND. She does not have bleeding issues; no blood in urine, stool, or nosebleeds. She does acknowledge fatigue. She denies myalgias, or claudication. She does not have edema, or sudden weight gain. She does acknowledge dizziness with lying down on her left or right side. She does acknowledge lightheadedness with positional changes. She denies syncopal or near syncopal episodes, and headaches. Intake Vital Signs 06/07/24 08:27 11/06/24 08:23 Height 5 ft 2 in 5 ft 2 in Weight: 146 lb 142 lb BMI 26.6 25.9 BP 161/64 H 132/68 H Blood Pressure Location Lt brachial Lt brachial Position Sitting Sitting Respiration 16 18 Pulse 45 L 52 L Pulse Source NIBP Monitor Pulse Oximetry (%) 94 Oxygen Delivery Method room air Intake Visit Reasons: PER PCP Administrative Associate Required: No Accompanied by: Self Is patient in pain?: No Allergies No Known Allergies Allergy (Verified 11/06/24 08:50) Medications ???Medication ???Instructions ???Recorded ???Confirmed ???Type acetaminophen 500 mg tablet 1,000 mg PO QHS PAIN 01/27/21 07/01/03 History ergocalciferol (vitamin D2) 1,250 1,250 mcg PO SUWE SUPPLEMENT 01/0911/06/24 History mcg (50,000 unit) capsule fenofibrate 160 mg tablet 160 mg PO DAILY CHOLESTEROL 11/06/24 History gabapentin 300 mg capsule 300 mg PO BID NEUROPATHY 01/27/21 11/06/24 History levothyroxine 100 mcg tablet 100 mcg PO DAILY thyroid 01/27/21 11/06/24 History aspirin 81 mg tablet,delayed 81 mg PO DAILY heart health 11/06/24 History release (Adult Aspirin Regimen) oxybutynin chloride 10 mg 10 mg PO DAILY 04/22/22 11/06/24 H istory tablet,extended release 24 hr losartan 100 mg tablet 100 mg PO DAILY #90 tabs 04/21/23 11/06/24 Rx atorvastatin 20 mg tablet 20 mg PO DAILY #90 TABLETS 4 11/06/24 Rx clopidogrel 75 mg tablet 75 mg PO DAILY #90 TABLETS 4 11/06/24 Rx amlodipine 5 mg tablet 10 mg PO DAILY 06/07/24 11/06/24 H istory clonazepam 0.5 mg tablet 0.5 mg PO QHS 06/07/24 11/06/24 Hi story venlafaxine 37.5 mg 37.5 mg PO DAILY 06/07/24 11/06/24 History capsule,extended release 24 hr metoprolol succinate 50 mg 25 mg (1/2 x 50 mg) PO DAILY #45 0 10/10/24 11/06/24 Rx tablet,extended release 24 hr tabs (Toprol XL) Have you fallen in the past year?: [facility] Medical History Atherosclerotic heart disease of [place] coronary artery without angina pectoris Dyspnea Exertional chest pain Hypothyroidism Essential hypertension Overactive bladder Depression Hyperlipidemia Multiple sclerosis Surgical History History of coronary artery stent placement (03/16/21) History of appendectomy History of left hip hemiarthroplasty History of (more content not included)... Normal [facility] Chest PA and Lateralon 11-06 Chest PA and Lateral [facility] Imaging Services [address] [place] [address] Chest PA and Lateral MR#: [id number] Acct: [id number] Name: SOREN MCDANIELS Rep #: [id number] : 1950 F 74 From: Maurisio Maurer MD PCP: Dr. Keyonna Camarena, DO Status: REG CLI Study: Chest PA and Lateral Date of Exam: 11/06/24 Exam# [id number] Ordering Dr: Julia Gutierrez NP MUNICIPAL CLERK- C PROCEDURE: CHEST PA AND LATERAL 2024 REASON FOR EXAM: CARDIAC CATH TECHNIQUE: CHEST PA AND LATERAL COMPARISON: 01/27/2021 FINDINGS: Scoliosis. Normal heart size. Status post coronary stenting. Elevated right hemidiaphragm. Well inflated lungs. No consolidation, effusion or pneumothorax. RAD/Chest PA and Lateral IMPRESSION: No acute chest findings. Reading Location: [place] [address] CC: CAROL Gtuierrez; Dr. Keyonna Camarena DO Office Technician: Signed Normal [facility] .GFRon 10-24-2024 Estimated Glomerular Filtration Rate 44 ml/min/1.73sqm Normal [facility] Comment on above: Result Comment: Stages of Chronic Kidney Disease (CKD) Stage Description eGFR(ml/min/1.73 sq.m.) CKD 1 Normal kidney function or >=90 normal kindney function with possible kidney damage (ex. Proteinuria) CKD 2 Kidney damage with mild loss 60-89 of kidney function CKD 3a Mild to moderate loss of kidney 45-59 function CKD 3b Moderate to severe loss of 30-44 of kindey function CKD 4 Severe loss of kidney function 15-29 CKD 5 Kidney failure <15 Note: (go live 2024) the eGFR calculation was updated to the 2020 CKD-EPI creatinine equation without a race factor to calculate the eGFR results. Performed By: #### Carol Ann JOSÉ, BMP #### [address] [address] BMPon 10-24-2024 BUN/Creatinine Ratio 15 ratio Normal 7-27 [facility] Comment on above: Performed By: #### Carol Ann , BMP #### [address] [address] Calcium [Mass/Vol] 9.8 mg/dL Normal 8.4-10.[address] [facility] Comment on above: Performed By: #### G , BMP #### [address] [address] Chloride [Moles/Vol] 104 mmol/L Normal 98-107 [facility] Comment on above: Performed By: #### G , BMP #### [address] [address] CO2 [Moles/Vol] 24 mmol/L Normal 23-31 [facility] Comment on above: Performed By: #### Carol Ann JOSÉ, BMP #### [address] [address] Creatinine [Mass/Vol] 1.27 mg/dL High 0.51-0.95 [facility] Comment on above: Performed By: #### Carol Ann JOSÉ, BMP #### [address] [address] Electrolyte Balance 11.0 mEq/L Normal 4.0-15.0 [facility] Comment on above: Performed By: #### Carol Ann JOSÉ, BMP #### [address] [address] Glucose [Mass/Vol] 78 mg/dL Low 83-[address] [facility] Comment on above: Performed By: #### Carol Ann JOSÉ, BMP #### [address] [address] Potassium [Moles/Vol] 4.1 mmol/L Normal 3.5-5.1 [facility] Comment on above: Performed By: #### Carol Ann JOSÉ, BMP #### [address] [address] Sodium [Moles/Vol] 139 mmol/L Normal 136-[address] [facility] Comment on above: Performed By: #### Carol Ann JOSÉ, BMP #### [address] [address] Urea nitrogen [Mass/Vol] 19 mg/dL High 7-18 [facility] Comment on above: Performed By: #### Carol Ann JOSÉ, BMP #### [address] [address] LABORATORYOrdered By: SYSTEM SYSTEM on 10-24-2024 Calcium [Mass/Vol] 9.8 mg/dL Normal 8.4 - 10. 2 mg/dL AO ADM SS Chloride [Moles/Vol] 104 mmol/L Normal 98 - 10 7 mmol/L AO ADM SS CO2 [Moles/Vol] 24 mmol/L Normal 23 - 31 mmol/L AO ADM SS Creatinine [Mass/Vol] 1.27 mg/dL High 0.51 - 0.95 mg/dL AO ADM SS Electrolyte Balance 11.0 mEq/L Normal 4.0 - 15 .0 mEq/L AO ADM SS Estimated Glomerular Filtration Rate 44 ml/min/1.73sqm Invalid Interpretation Code AO Chemistry S Comment on above: Interpretive Data: Stages of Chronic Kidney Disease (CKD) Stage Description eGFR(ml/min/1.73 sq.m.) CKD 1 Normal kidney function or >=90 normal kindney function with possible kidney damage (ex. Proteinuria) CKD 2 Kidney damage with mild loss 60-89 of kidney function CKD 3a Mild to moderate loss of kidney 45-59 function CKD 3b Moderate to severe loss of 30-44 of kindey function CKD 4 Severe loss of kidney function 15-29 CKD 5 Kidney failure <15 Note: (go live 2024) the eGFR calculation was updated to the 2020 CKD-EPI creatinine equation without a race factor to calculate the eGFR results. Glucose [Mass/Vol] 78 mg/dL Low 83 - 110 mg/dL AO ADM SS Potassium [Moles/Vol] 4.1 mmol/L Normal 3.5 - 5.1 mmol/L AO ADM SS Sodium [Moles/Vol] 139 mmol/L Normal 136 - 145 mmol/L AO ADM SS Urea nitrogen [Mass/Vol] 19 mg/dL High 7 - 18 mg/dL AO ADM SS Urea nitrogen/Creatinine [Mass ratio] 15 ratio Normal 7 - 27 ratio AO ADM SS MALBRon 06-26-2024 U Creatinine 188.9 mg/dL Normal [facility] Comment on above: Performed By: #### M ALBR #### [address] [address] U Microalb 11.0 mg/L Normal [facility] Comment on above: Performed By: #### M ALBR #### [place] [id number] [place], [place] [address] U Ratio Alb/Cre 6 mg/G Normal 0-30 [facility] Comment on above: Performed By: #### M ALBR #### [address] [address] .GFRon 06-22-2024 Estimated Glomerular Filtration Rate 39 ml/min/1.73sqm Normal [facility] Comment on above: Result Comment: Stages of Chronic Kidney Disease (CKD) Stage Description eGFR(ml/min/1.73 sq.m.) CKD 1 Normal kidney function or >=90 normal kindney function with possible kidney damage (ex. Proteinuria) CKD 2 Kidney damage with mild loss 60-89 of kidney function CKD 3a Mild to moderate loss of kidney 45-59 function CKD 3b Moderate to severe loss of 30-44 of kindey function CKD 4 Severe loss of kidney function 15-29 CKD 5 Kidney failure <15 Note: (go live 2024) the eGFR calculation was updated to the 2020 CKD-EPI creatinine equation without a race factor to calculate the eGFR results. Performed By: #### CHRIS ANGELES, TSH ####[address] [place], [place] [address] BMPon 06-22-2024 BUN/Creatinine Ratio 15 ratio Normal 7-27 [facility] Comment on above: Performed By: #### CHRIS ANGELES, TSH ####[address] [place], [place] [address] Calcium [Mass/Vol] 9.6 mg/dL Normal 8.4-10.[address] [facility] Comment on above: Performed By: #### CHRIS ANGELES, TSH ####[address] [place], [place] [address] Chloride [Moles/Vol] 105 mmol/L Normal 98-107 [facility] Comment on above: Performed By: #### Carol Ann JOSÉ BMP, TSH ####[address] [place], [place] [address] CO2 [Moles/Vol] 26 mmol/L Normal 23-31 [facility] Comment on above: Performed By: #### Carol Ann JOSÉ BMP, TSH ####[address] [place], [place] [address] Creatinine [Mass/Vol] 1.40 mg/dL High 0.55-1.02 [facility] Comment on above: Result Comment: Test ing performed on Siemens Dimension EXL analyzer using a modified kinetic Manasa technique. Performed By: #### G FR, BMP, TSH ####[address] [place], [place] [address] Electrolyte Balance 7.0 mEq/L Normal 4.0-15.0 [facility] Comment on above: Performed By: #### G FR, BMP, TSH ####[address] [place], [place] [address] Glucose [Mass/Vol] 80 mg/dL Low 83-[address] [facility] Comment on above: Performed By: #### G FR, BMP, TSH ####[address] [place], [place] [address] Potassium [Moles/Vol] 3.8 mmol/L Normal 3.5-5.1 [facility] Comment on above: Performed By: #### G FR, BMP, TSH ####[address] [place], [place] [address] Sodium [Moles/Vol] 138 mmol/L Normal 136-[address] [facility] Comment on above: Performed By: #### G FR, BMP, TSH ####[address] [place], [place] [address] Urea nitrogen [Mass/Vol] 21 mg/dL High 7-18 [facility] Comment on above: Performed By: #### G FR, BMP, TSH ####[address] [place], [place] [address] TSHon 06-22-2024 TSH Qn 1.16 m[IU]/L Normal 0.36-3.74 [facility] Comment on above: Performed By: #### G FR, BMP, TSH ####[address] [place], [place] [address] Cardiology Visit Reporton Cardiology Visit Report [facility] [address] [place] [address]. [address] [place], [place] [address] OFFICE VISIT Date of Service: 06/07/24 MR#: [id number] Acct: [id number] Name: SOREN MCDANIELS Rep #: [id number] : 1950 Provider: CAROL veras Age/Sex: 73/F Location: [facility] Status: Signed HPI HPI History of Present Illness Details: Pleasant 73-year-old lady with a history of hypertension, hypothyroidism, multiple sclerosis who had been having exertional chest discomfort. She was admitted to the hospital in January 2021 with exertional chest pain, lightheadedness, nausea and shortness of breath. She ruled out for myocardial infarction and underwent a stress test where she exercised to a moderate workload with no evidence of angina. Nuclear images did not demonstrate any evidence of ischemia. A CAT scan performed also did not demonstrate any evidence of pulmonary embolism. She continued to have chest tightness when she exerted herself. She eventually came in and she underwent a heart catheterization on 03/16/2021 that showed high-grade stenosis noted in diagonal vessel. She proceeded with drug-eluting stent placement to diagonal 1. Mid circumflex noted 50% stenosis and mid RCA showed 40% stenosis. Left main was considered to be nonobstructive. Exercise stress test in December 2023 was negative for ischemia at high workload She acknowledges sharp, midsternal chest discomfort. She notes this with activity (vacuuming or raking) and has occurred 4 times over the last 3 months. This improves with rest/relaxation. She acknowledges palpitations when vacuuming. This is felt as fast. She acknowledges minimal bilateral lower extremity edema. She denies shortness of breath activity, shortness of breath at rest, orthopnea, cough, or PND. She acknowledges lightheadedness when lying down. She denies dizziness, near-syncope, or syncope. She denies fatigue. Intake Vital Signs 03/02/24 08:37 06/07/24 08:27 Height 5 ft 2 in 5 ft 2 in Weight: 146 lb 146 lb BMI 26.6 26.6 BP 160/71 H 161/64 H Blood Pressure Location Lt brachial Lt brachial Position Sitting Sitting Respiration 18 16 Pulse 49 L 45 L Pulse Source NIBP NIBP Intake Visit Reasons: 3 M FU Administrative Associate Required: No Is patient in pain?: No Allergies No Known Allergies Allergy (Verified 06/07/24 08:33) Medications ???Medication ???Instructions ???Recorded ???Confirmed ???Type acetaminophen 500 mg tablet 1,000 mg PO QHS PAIN 01/27/2105/13 History ergocalciferol (vitamin D2) 1,250 1,250 mcg PO SUWE SUPPLEMENT 01/0906/07/24 History mcg (50,000 unit) capsule fenofibrate 160 mg tablet 160 mg PO DAILY CHOLESTEROL 06/07/24 History gabapentin 300 mg capsule 300 mg PO BID NEUROPATHY 01/27/21 06/07/24 History levothyroxine 100 mcg tablet 100 mcg PO DAILY thyroid 01/27/21 06/07/24 History aspirin 81 mg tablet,delayed 81 mg PO DAILY heart health 06/07/24 History release (Adult Aspirin Regimen) oxybutynin chloride 10 mg 10 mg PO DAILY 04/22/22 06/07/24 H istory tablet,extended release 24 hr losartan 100 mg tablet 100 mg PO DAILY #90 tabs 04/21/23 06/07/24 Rx venlafaxine 75 mg capsule,extended 75 mg PO DAILY 12/08/23 03/02/24 History release 24 hr atorvastatin 20 mg tablet 20 mg PO DAILY #90 TABLETS 4 06/07/24 Rx clopidogrel 75 mg tablet 75 mg PO DAILY #90 TABLETS 4 06/07/24 Rx amlodipine 5 mg tablet 10 mg PO DAILY 06/07/24 06/07/24 H istory clonazepam 0.5 mg tablet 0.5 mg PO QHS 06/07/24 06/07/24 Hi story metoprolol succinate 50 mg 25 mg PO DAILY 06/07/24 06/07/24 H istory tablet,extended release 24 hr (Toprol XL) venlafaxine 37.5 mg 37.5 mg PO DAILY 06/07/24 06/07/24 History capsule,extended release 24 hr Ejection fraction %: 60 Have you fallen in the past year?: No [facility] Medical History Atherosclerotic heart disease of [place] coronary artery without angina pectoris Dyspnea Exertional chest pain Hypothyroidism Essential hypertension Overactive bladder Depression Hyperlipidemia Multiple sclerosis Surgical History History of coronary artery stent placement (03/16/21) History of appendectomy History of left hip hemiarthroplasty History of tonsillectomy and adenoidectomy History of hysterectomy Family History Brother Hypertension Father Hypertension Social History Smoking Status: Never smoker alcohol intake: current alcohol intake frequency: 0-2 drinks per day Alcohol type: beer substance use type: does not use caffeine: Yes Type: coffee Number of servings: 2 ROS Const Const: Neg (more content not included)... Normal [facility] MA MAMMOGRAM SCREENING BILAT ERAL W/TOMOon 03-23-2024 MA MAMMOGRAM SCREENING BILATERAL W/JOSH ORIGINAL FROM: [address] [address] PROCEDURE FOR: SOREN MCDANIELS [address] [place] [address] Home: PID#: [id number] Exam#: [id number] : 1950 Age: 73 TO: KEYONNA CAMARENA DO 48 [facility] [address] [place], [place] [address] Fax: NO FAX EXAMINATION: SCREENING DIGITAL BILATERAL MAMMOGRAM WITH TOMOSYNTHESIS, 03/16/2024 1:39 pm TECHNIQUE: Screening mammography of the bilateral breasts was performed with tomosynthesis. 2D standard and 3D tomosynthesis combination imaging performed through both breasts in the MLO and CC projection. Computer aided detection was utilized in the interpretation of this exam. COMPARISON: 03/14/2023, 03/12/2022 HISTORY: Breast cancer screening. FINDINGS: BREAST DENSITY: There are scattered areas of fibroglandular density. There is a benign calcification in the right breast. There are no significant masses or calcifications. IMPRESSION: No mammographic evidence of malignancy. Continued screening with annual mammograms is recommended. Nadir Hart risk calculations, generated with the history provided, report this patient's 10 year risk and lifetime risk for developing breast cancer at 3.1% and 3.5%, respectively. Based on this assessment tool, if the patient's calculated lifetime risk is below 20%, then the patient is considered at average risk for developing breast cancer. If the patient's calculated lifetime risk is at or above 20%, then the patient is considered high risk for developing breast cancer and may be a candidate for supplemental breast MRI screening in addition to annual mammographic screening per the [employer]. BIRADS: BI-RADS: 2: Benign RECALL: 1 year screening RECALL TYPE: mammo LETTER SENT: Normal BI-RADS 1 and 2 Interpreted by: Sanket Hernandez MD Preliminary Report By: Sanket Hernandez MD Electronically signed By Sanket Hernandez MD Dictated Date: 03/23/2024 6:13:52 PM Prelim Date: 03/23/2024 6:14:52 PM Sign Date: 03/23/2024 6:14:52 PM Ordering Provider: KEYONNA CAMARENA [place] Planning Manager: FREDO ORTEGA RT (R)(M) letter sent: Normal BI-RADS 1 and 2 Mammogram BI-RADS: 2 Benign Normal [facility] BD BONE DENSITY DEXA AXIAL S Formerly [facility] 03-16-2024 BD BONE DENSITY DEXA AXIAL SKELETON ORIGINAL EXAMINATION: BONE [id number]/6/202 2:01 pm TECHNIQUE: Dual energy bone densitometry lumbar spine and right hip. COMPARISON: 03/12/2022 HISTORY: Reason for Exam: Osteoporosis Screening FINDINGS: T Score Left Femoral Neck: -2.4 Left Femoral Neck: 0.580 (g/cm2) T Score Left Hip: -1.4 Left Hip: 0.776 (g/cm2) T Score Lumbar Spine: -1.1 Lumbar Spine: 0.928 (g/cm2) COMMENTS: Lt hip replacement BMD Change from previous Hip: +8.9%, significant BMD Change from previous Lumbar Spine: +4.0%, significant FRAX score: Not calculated The BHOF f/k/a NOF recommends that FDA-approved medical therapies be considered in post-menopausal women and men age >/= 50 years with a: * Hip or vertebral fracture, or * T-score of /= 20% for major osteoporotic fractures or * >/= 3% for hip fractures All treatment decisions require clinical judgement and consideration of individual patient factors, including patient preferences, comorbidities, previous drug use, risk factors not captured in the FRAX registered model (e.g., frailty, falls, vitamin D deficiency, increased bone turnover, interval significant decline in bone density) and possible under- or over-estimation of fracture risk by FRAX. IMPRESSION: Osteopenia. Interpreted by: Inocencio Khalil MD Preliminary Report By: Inocencio Khalil MD Electronically signed By Inocencio Khalil MD Dictated Date: 03/16/2024 3:55:51 PM Prelim Date: 03/16/2024 3:58:23 PM Sign Date: 03/16/2024 3:58:23 PM Ordering Provider: KEYONNA Baxter [facility] 12 Lead EKG performed by [facility] on 03-02-2024 12 Lead EKG performed by [facility] [address] [place] [address] 12 Lead EKG performed by [facility] 03/02/[address] MR#: [id number] Acct: [id number] Name: SOREN MCDANIELS Rep #: [id number] : 1950 73 From: Rajan Og MUNICIPAL CLERK MUNICIPAL CLERK-C Attending Dr: Rajan Og MUNICIPAL CLERK-C Status: DEP AMB Ordering Dr: Rajan Og MUNICIPAL CLERK MUNICIPAL CLERK-C Date: 03/02/24 Location: [facility] Sex: F C Admitted: [facility]/12 Lead EKG performed by [facility] ECG Report Interpretation ------Sinus Bradycardia Low voltage in precordial leads. ABNORMAL Compared to 12/08/2023 ECG no new changesElectronicall y signed on 03/05/2024 at 12:[address] Michele Gibsonwood Software Version 8610 03/05/24 1222 Date Rajan Og MUNICIPAL CLERK MUNICIPAL CLERK-C CC: Dr. Keyonna Camarena DO Date Dictated: 03/02/[address] Date Transcribed: 03/02/[address] Office Technician: SONAL Signed Normal [facility] Cardiology Visit Reporton Cardiology Visit Report [facility] [address] [place] [address] OFFICE VISIT Date of Service: 03/02/24 MR#: [id number] Acct: [id number] Name: SOREN MCDAINELS Rep #: [id number] : 1950 Provider: CAROL veras Age/Sex: 73/F Location: [facility] Status: Signed HPI HPI History of Present Illness Details: Pleasant 73-year-old lady with a history of hypertension, hypothyroidism, multiple sclerosis who had been having exertional chest discomfort. She was admitted to the hospital in January 2021 with exertional chest pain, lightheadedness, nausea and shortness of breath. She ruled out for myocardial infarction and underwent a stress test where she exercised to a moderate workload with no evidence of angina. Nuclear images did not demonstrate any evidence of ischemia. A CAT scan performed also did not demonstrate any evidence of pulmonary embolism. She continued to have chest tightness when she exerted herself. She eventually came in and she underwent a heart catheterization on 03/16/2021 that showed high-grade stenosis noted in diagonal vessel. She proceeded with drug-eluting stent placement to diagonal 1. Mid circumflex noted 50% stenosis and mid RCA showed 40% stenosis. Left main was considered to be nonobstructive. She acknowledges pressure chest discomfort that is located midsternal left side of her chest. This last for minutes. This is worse with exertion improves with rest. Her last episode was approximately 4 months ago. She denies palpitations. She denies bilateral lower extremity edema, but acknowledges intermittent left leg edema. She denies claudication. She denies shortness of breath with activity, shortness of breath at rest, orthopnea, or PND. She states morning cough that is non-productive. She acknowledges snoring. She denies significant, sudden weight gain. She states dizziness when changing position quickly and starting to walk. She denies lightheadedness, near-syncope, or syncope. She denies blood in urine, blood in stool, or epistaxis. He denies fever with chills. She denies myalgia. She states fatigue. Her exercise level has remained stable. Intake Vital Signs 12/08/23 09:26 03/02/24 08:37 Height 5 ft 2 in 5 ft 2 in Weight: 143 lb 146 lb BMI 26.2 26.6 BP 149/72 H 160/71 H Blood Pressure Location Lt brachial Lt brachial Position Sitting Sitting Respiration 16 18 Pulse 50 L 49 L Pulse Source NIBP NIBP Intake Visit Reasons: 3 M FU Administrative Associate Required: No Accompanied by: Self Is patient in pain?: No Allergies No Known Allergies Allergy (Verified 03/02/24 08:37) Medications ???Medication ???Instructions ???Recorded ???Confirmed ???Type acetaminophen 500 mg tablet 1,000 mg PO QHS PAIN 01/27/21 03/02/24 History ergocalciferol (vitamin D2) 1,250 1,250 mcg PO SUWE SUPPLEMENT 01/27/21 03/02/24 History mcg (50,000 unit) capsule fenofibrate 160 mg tablet 160 mg PO DAILY CHOLESTEROL 01/27/21 03/02/24 History gabapentin 300 mg capsule 300 mg PO BID NEUROPATHY 01/27/21 03/02/24 History levothyroxine 100 mcg tablet 100 mcg PO DAILY thyroid 01/27/21 03/02/24 History aspirin 81 mg tablet,delayed 81 mg PO DAILY heart health 03/11/21 03/02/24 History release (Adult Aspirin Regimen) oxybutynin chloride 10 mg 10 mg PO DAILY 04/22/22 03/02/24 History tablet,extended release 24 hr atorvastatin 20 mg tablet 20 mg PO DAILY #90 tabs 04/01/23 03/02/24 Rx losartan 100 mg tablet 100 mg PO DAILY #90 tabs 04/21/23 03/02/24 Rx clopidogrel 75 mg tablet mg PO 12/08/23 03/02/24 History venlafaxine 75 mg capsule,extended 75 mg PO DAILY 12/08/23 03/02/24 History release 24 hr amlodipine 5 mg tablet 10 mg PO DAILY 03/02/24 03/02/24 History metoprolol succinate 50 mg 50 mg PO DAILY 03/02/24 History tablet,extended release 24 hr (Toprol XL) Ejection fraction %: 60 Have you fallen in the past year?: No [facility] Medical History Atherosclerotic heart disease of [place] coronary artery without angina pectoris Dyspnea Exertional chest pain Hypothyroidism Essential hypertension Overactive bladder Depression Hyperlipidemia Multiple sclerosis Surgical History History of coronary artery stent placement (03/16/21) History of appendectomy History of left hip hemiarthroplasty History of tonsillectomy and adenoidectomy History of hysterectomy Family History Brother Hypertension Father Hypertension Social History Smoking Status: Never smoker alcohol intake: current alcohol intake frequency: 0-2 drinks per day Alcohol type: beer substance use type: does not use (more content not included)... [facility] .GFRon 02-20-2024 GFR Non- 39 ml/min/1.73sqm [facility] Comment on above: Result Comment: GFR Population mean for , Non- Americans Ages 20-29 = 116 mL/min/1.73 sq.m. Ages 30-39 = 107 mL/min/1.73 sq.m. Ages 40-49 = 99 mL/min/1.73 sq.m. Ages 50-59 = 93 mL/min/1.73 sq.m. Ages 60-69 = 85 mL/min/1.73 sq.m. Ages 70+ = 75 mL/min/1.73 sq.m. Chronic Kidney Disease: Less than 60 mL/min/1.73 square meters End Stage Renal Disease: Less than 15 mL/min/1.73 square meters Performed By: #### T SH, GFR, VIDH, CMP, LIPID #### [place] [id number] [place], [place] [address] GFR 47 ml/min/1.73sqm [facility] Comment on above: Result Comment: GFR Population mean for , Non- Americans Ages 20-29 = 116 mL/min/1.73 sq.m. Ages 30-39 = 107 mL/min/1.73 sq.m. Ages 40-49 = 99 mL/min/1.73 sq.m. Ages 50-59 = 93 mL/min/1.73 sq.m. Ages 60-69 = 85 mL/min/1.73 sq.m. Ages 70+ = 75 mL/min/1.73 sq.m. Chronic Kidney Disease: Less than 60 mL/min/1.73 square meters End Stage Renal Disease: Less than 15 mL/min/1.73 square meters Performed By: #### T SH, GFR, VIDH, CMP, LIPID #### [address] [address] CMPon 02-20-2024 Albumin Level 4.1 G/dL Normal 3.4-4.8 [facility] Comment on above: Performed By: #### T SH, GFR, VIDH, CMP, LIPID #### [address] [address] Albumin/Globulin [Mass ratio] 1.8 {ratio} Normal 1.1-2.5 [facility] Comment on above: Performed By: #### T SH, GFR, VIDH, CMP, LIPID #### [address] [address] ALP [Catalytic activity/Vol] 45 U/L Normal 40-135 [facility] Comment on above: Performed By: #### T SH, GFR, VIDH, CMP, LIPID #### [address] [address] ALT [Catalytic activity/Vol] 46 U/L Normal 14-59 [facility] Comment on above: Performed By: #### T SH, GFR, VIDH, CMP, LIPID #### [address] [address] AST [Catalytic activity/Vol] 40 U/L Normal 10-40 [facility] Comment on above: Performed By: #### T SH, GFR, VIDH, CMP, LIPID #### [address] [address] Bili Total 0.5 mg/dL Normal 0.2-1.0 [facility] Comment on above: Result Comment: Use of this assay is not recommended for patients undergoing treatment with eltrombopag due to the potential for falsely elevated results. Performed By: #### T SH, GFR, VIDH, CMP, LIPID #### [address] [address] BUN/Creatinine Ratio 17 ratio Normal 7-27 [facility] Comment on above: Performed By: #### T SH, GFR, VIDH, CMP, LIPID #### [address] [address] Calcium [Mass/Vol] 9.9 mg/dL Normal 8.4-10.[address] [facility] Comment on above: Performed By: #### T SH, GFR, VIDH, CMP, LIPID #### [place] [address] Chloride [Moles/Vol] 106 mmol/L Normal 98-107 [facility] Comment on above: Performed By: #### T SH, GFR, VIDH, CMP, LIPID #### [place] [address] CO2 [Moles/Vol] 30 mmol/L Normal 23-31 [facility] Comment on above: Performed By: #### T SH, GFR, VIDH, CMP, LIPID #### [place] [address] Creatinine [Mass/Vol] 1.33 mg/dL High 0.55-1.02 [facility] Comment on above: Result Comment: Test ing performed on Siemens Dimension EXL analyzer using a modified kinetic Manasa technique. Performed By: #### T SH, GFR, VIDH, CMP, LIPID #### [place] [address] Electrolyte Balance 5.0 mEq/L Normal 4.0-15.0 [facility] Comment on above: Performed By: #### T SH, GFR, VIDH, CMP, LIPID #### [place] [address] Globulin 2.3 G/dL Normal [facility] Comment on above: Performed By: #### T SH, GFR, VIDH, CMP, LIPID #### [place] [address] Glucose [Mass/Vol] 83 mg/dL Normal 83-[address] [facility] Comment on above: Performed By: #### T SH, GFR, VIDH, CMP, LIPID #### [address] [address] Potassium [Moles/Vol] 4.6 mmol/L Normal 3.5-5.1 [facility] Comment on above: Performed By: #### T SH, GFR, VIDH, CMP, LIPID #### [place] [id number] Sodium [Moles/Vol] 141 mmol/L Normal 136-[address] [facility] Comment on above: Performed By: #### T SH, GFR, VIDH, CMP, LIPID #### [place] [id number] Total Protein 6.4 G/dL Normal 6.4-8.2 [facility] Comment on above: Performed By: #### T SH, GFR, VIDH, CMP, LIPID #### [place] [id number] Urea nitrogen [Mass/Vol] 22 mg/dL High 7-18 [facility] Comment on above: Performed By: #### T SH, GFR, VIDH, CMP, LIPID #### [address] [address] LABORATORYOrdered By: SYSTEM SYSTEM on 02-20-2024 25-hydroxyvitamin D3 [Mass/Vol] 41.6 ng/mL Invalid Interpretation Code AO ADM SS Comment on above: Interpretive Data: I nterpretive Values Based on Total 25(OH) Vitamin D: Deficient <20 ng/mL Insufficient 20 - <30 ng/mL Sufficient 30-100 ng/mL Albumin BCP dye [Mass/Vol] 4.1 G/dL Normal 3.4 - 4.8 G/dL AO ADM SS Albumin/Globulin [Mass ratio] 1.8 {ratio} Normal 1.1 - 2.5 ratio AO ADM SS ALP [Catalytic activity/Vol] 45 U/L Normal 40 - 135 U/L AO ADM SS ALT With P-5'-P [Catalytic activity/Vol] 46 U/L Normal 14 - 59 U/L AO ADM SS AST With P-5'-P [Catalytic activity/Vol] 40 U/L Normal 10 - 40 U/L AO ADM SS Bilirubin [Mass/Vol] 0.5 mg/dL Normal 0.2 - 1 .0 mg/dL AO ADM SS Comment on above: Interpretive Data: U se of this assay is not recommended for patients undergoing treatment with eltrombopag due to the potential for falsely elevated results. Calcium [Mass/Vol] 9.9 mg/dL Normal 8.4 - 10. 2 mg/dL AO ADM SS Chloride [Moles/Vol] 106 mmol/L Normal 98 - 10 7 mmol/L AO ADM SS CO2 [Moles/Vol] 30 mmol/L Normal 23 - 31 mmol/L AO ADM SS Creatinine [Mass/Vol] 1.33 mg/dL High 0.55 - 1.02 mg/dL AO ADM SS Comment on above: Interpretive Data: T esting performed on Siemens Dimension EXL analyzer using a modified kinetic Manasa technique. Electrolyte Balance 5.0 mEq/L Normal 4.0 - 15 .0 mEq/L AO ADM SS GFR/1.73 sq M.predicted among blacks MDRD (S/P/Bld) [Vol rate/Area] 47 ml/min/1.73sqm Invalid Interpretation Code AO Chemistry S Comment on above: Interpretive Data: GFR Population mean for , Non- Americans Ages 20-29 = 116 mL/min/1.73 sq.m. Ages 30-39 = 107 mL/min/1.73 sq.m. Ages 40-49 = 99 mL/min/1.73 sq.m. Ages 50-59 = 93 mL/min/1.73 sq.m. Ages 60-69 = 85 mL/min/1.73 sq.m. Ages 70+ = 75 mL/min/1.73 sq.m. Chronic Kidney Disease: Less than 60 mL/min/1.73 square meters End Stage Renal Disease: Less than 15 mL/min/1.73 square meters GFR/1.73 sq M.predicted among non-blacks MDRD (S/P/Bld) [Vol rate/Area] 39 ml/min/1.73sqm Invalid Interpretation Code AO Chemistry S Comment on above: Interpretive Data: GFR Population mean for , Non- Americans Ages 20-29 = 116 mL/min/1.73 sq.m. Ages 30-39 = 107 mL/min/1.73 sq.m. Ages 40-49 = 99 mL/min/1.73 sq.m. Ages 50-59 = 93 mL/min/1.73 sq.m. Ages 60-69 = 85 mL/min/1.73 sq.m. Ages 70+ = 75 mL/min/1.73 sq.m. Chronic Kidney Disease: Less than 60 mL/min/1.73 square meters End Stage Renal Disease: Less than 15 mL/min/1.73 square meters Globulin 2.3 G/dL Invalid Interpretation Code AO ADM SS Glucose [Mass/Vol] 83 mg/dL Normal 83 - 110 mg/dL AO ADM SS Potassium [Moles/Vol] 4.6 mmol/L Normal 3.5 - 5.1 mmol/L AO ADM SS Protein [Mass/Vol] 6.4 G/dL Normal 6.4 - 8.2 G/dL AO ADM SS Sodium [Moles/Vol] 141 mmol/L Normal 136 - 145 mmol/L AO ADM SS TSH Qn 2.05 m[IU]/L Normal 0.36 - 3.74 mcIU/mL AO ADM SS Urea nitrogen [Mass/Vol] 22 mg/dL High 7 - 18 mg/dL AO ADM SS Urea nitrogen/Creatinine [Mass ratio] 17 ratio Normal 7 - 27 ratio AO ADM SS LABORATORYOrdered By: Kellee Parra on 02-20-2024 Cholesterol [Mass/Vol] 149 mg/dL Normal 0 - 200 mg/dL AO ADM SS Comment on above: Interpretive Data: C holesterol Reference Interval: Less than 200 Desirable 200-239 Borderline high risk 240 and above High risk Cholesterol in HDL [Mass/Vol] 58 mg/dL Normal 40 - 60 mg/dL AO ADM SS Cholesterol in LDL [Mass/Vol] 80 mg/dL Normal 0 - 130 mg/dL AO ADM SS Triglyceride [Mass/Vol] 56 mg/dL Normal 0 - 150 mg/dL AO ADM SS Comment on above: Interpretive Data: T riglyceride Reference Interval: Less than 150 Normal 150-199 Borderline high risk 200-499 High risk 500 or higher Very high risk LIPIDon 02-20-2024 Cholesterol [Mass/Vol] 149 mg/dL Normal 0-200 [facility] Comment on above: Result Comment: Chol esterol Reference Interval: Less than 200 Desirable 200-239 Borderline high risk 240 and above High risk Performed By: #### T SH, GFR, VIDH, CMP, LIPID #### [address] [address] Cholesterol in HDL [Mass/Vol] 58 mg/dL Normal 40-60 [facility] Comment on above: Performed By: #### T SH, GFR, VIDH, CMP, LIPID #### [address] [address] Cholesterol in LDL [Mass/Vol] 80 mg/dL Normal 0-130 [facility] Comment on above: Performed By: #### T SH, GFR, VIDH, CMP, LIPID #### [address] [address] Triglyceride [Mass/Vol] 56 mg/dL Normal 0-150 [facility] Comment on above: Result Comment: Trig lyceride Reference Interval: Less than 150 Normal 150-199 Borderline high risk 200-499 High risk 500 or higher Very high risk Performed By: #### T SH, GFR, VIDH, CMP, LIPID #### [address] [address] TSHon 02-20-2024 TSH Qn 2.05 m[IU]/L Normal 0.36-3.74 [facility] Comment on above: Performed By: #### T SH, GFR, VIDH, CMP, LIPID #### [address] [address] VIDHon 02-20-2024 Vit. D 25-Hydroxy 41.6 ng/mL Normal [facility] Comment on above: Result Comment: Inte rpretive Values Based on Total 25(OH) Vitamin D: Deficient <20 ng/mL Insufficient 20 - <30 ng/mL Sufficient 30-100 ng/mL Performed By: #### T SH, GFR, VIDH, CMP, LIPID #### [address] [address] NM BRAIN DATSCANon 4 NM BRAIN DATSCAN ORIGINAL EXAMINATION: NUCLEAR MEDICINE BRAIN FLOW SCAN 01/06/2024 1:55 pm COMPARISON: None. HISTORY: ORDERING SYSTEM PROVIDED HISTORY: Reason for Exam: Other abnormal involuntary movements TECHNIQUE: Following the intravenous administration of 5.5 millicuries I-123 ioflupane and the prior pretreatment with SSKI, SPECT imaging of the brain is performed. FINDINGS: There is asymmetrically decreased activity within right basal ganglia predominantly putamen on right side with questionable subtle decreased activity within right head of caudate nucleus. IMPRESSION: Asymmetrically decreased activity within right putamen, possibilities include Parkinsonian syndrome such as idiopathic Parkinson's disease, Lewy Body dementia, multiple system atrophy or progressive supranuclear palsy. I have personally reviewed the images of this examination and agree with the resident's findings and interpretation. Interpreted by: Sanket Galvin DO Preliminary Report By: Rian Stevenson Electronically signed By Sanket Galvin DO Dictated Date: 01/06/2024 2:18:28 PM Prelim Date: 01/06/2024 4:14:53 PM Sign Date: 01/06/2024 4:14:53 PM Ordering Provider: [facility] MAIN Stress Reporton 01-02-2024 Stress Report [facility] [address] [place] [address] MR#: [id number] Acct: [id number] Name: SOREN MCDANIELS Rep #: [id number] : 1950 73 From: Albert Martínez MD Primary Care: Dr. Keyonna Camarena, Status: REG CLI Referring Dr: Rajan Og MUNICIPAL CLERK MUNICIPAL CLERK-C Sex: F C Stress Test Report Exercise myocardial perfusion stress test. 73-year-old lady with a history of chest pain Stress protocol: Resting EKG demonstrates sinus bradycardia with a rate of 53 bpm resting blood pressure is 118/64 mmHg. The patient exercised according to the regular [facility] protocol for a total duration of 7 minutes and 30 seconds attaining a maximum heart rate of 125 bpm which was 85% of maximum predicted heart rate; the maximum workload was 10.1 metabolic equivalents. At rest there were no ST or T wave changes noted to suggest ischemia and at peak exercise upsloping ST changes only were noted which did not meet the criteria for ischemia. No clinical angina was noted the test was terminated due to the target heart rate being achieved/fatigue. The peak blood pressure was 182/70 mmHg. Rate- pressure product was 18,500. Myocardial perfusion protocol. 11.3 mCi of technetium 99m sestamibi was injected at rest. The patient exercised according to regular [facility] protocol for total duration of 7-1/2 minutes and at peak exercise 31.9 mCi of t echnetium 99m sestamibi was injected stress images were obtained stress and rest images were reconstructed in comparing the short axis vertical long and horizontal long axis. Gated images were also obtained. Perfusion SPECT analysis: Review of the stress images demonstrate normal uptake of tracer noted in all areas of the myocardium. The resting images similarly demonstrate normal uptake of tracer noted in all areas of the myocardium. No areas of reversibility are noted to suggest ischemia no previous infarct was noted. Gated SPECT analysis: The gated ejection fraction is 78%. Conclusion: Normal exercise myocardial perfusion stress test at a high workload Preserved ejection fraction. 01/02/24 1601 Date Albert Martínez MD CC: MUNICIPAL CLERK-C Rajan Og; Dr. Keyonna Camarena, Date Dictated: 01/02/24 1557 Date Transcribed: 01/02/241556 Office Technician: CO Signed Vee [facility] 12 Lead EKG performed by [facility] on 12-08-2023 12 Lead EKG performed by [facility] [address] [place] [address] 12 Lead EKG performed by [facility] 12/08/23 1002 MR#: [id number] Acct: [id number] Name: SOREN MCDANIELS Rep #: [id number] : 1950 73 From: Rajan MEDINA Attending Dr: CAROL Vale Status: DEP AMB Ordering Dr: Rajan Og NP Date: 12/08/23 [place]: [facility] Sex: F C Admitted: BMS/12 Lead EKG performed by [facility] ECG Report Interpretation ------Marked sinus Bradycardia Low voltage in precordial leads. -RSR(V1) -nondiagnostic. ABNORMAL Electronically signed on 12/13/2023 at 15:58 by Albert Martínezwood Software Version [id number] 12/13/23 1601 Date Rajan MEDINA CC: Dr. Keyonna Camarena, DO Date Dictated: 12/08/23 1002 Date Transcribed: 12/08/231001 Office Technician: SONAL Signed Normal [facility] Cardiology Visit Reporton Cardiology Visit Report [facility] [address] [place] [address]. [address] [place], [place] [address] OFFICE VISIT Date of Service: 12/08/23 MR#: [id number] Acct: [id number] Name: SOREN MCDANIELS Rep #: [id number] : 1950 Provider: CAROL vears Age/Sex: 73/F Location: [facility] Status: Signed HPI HPI History of Present Illness Details: Pleasant 73-year-old lady with a history of hypertension, hypothyroidism, multiple sclerosis who had been having exertional chest discomfort. She was admitted to the hospital in January 2021 with exertional chest pain, lightheadedness, nausea and shortness of breath. She ruled out for myocardial infarction and underwent a stress test where she exercised to a moderate workload with no evidence of angina. Nuclear images did not demonstrate any evidence of ischemia. A CAT scan performed also did not demonstrate any evidence of pulmonary embolism. She continued to have chest tightness when she exerted herself. She eventually came in and she underwent a heart catheterization on 03/16/2021 that showed high-grade stenosis noted in diagonal vessel. She proceeded with drug-eluting stent placement to diagonal 1. Mid circumflex noted 50% stenosis and mid RCA showed 40% stenosis. Left main was considered to be nonobstructive. She acknowledges pressure chest discomfort that is located midsternal left side of her chest. This last for minutes. This is worse with exertion improves with rest. Her last episode was approximately 4 months ago. She denies palpitations. She denies bilateral lower extremity edema, but acknowledges intermittent left leg edema. She denies claudication. She denies shortness of breath with activity, shortness of breath at rest, orthopnea, or PND. She states morning cough that is non-productive. She acknowledges snoring. She denies significant, sudden weight gain. She states lightheadedness when changing position quickly and starting to walk. She denies dizziness, near-syncope, or syncope. She denies blood in urine, blood in stool, or epistaxis. He denies fever with chills. She denies myalgia. She states fatigue. Her exercise level has remained stable. Intake Vital Signs 10/21/22 08:22 04/21/23 08:36 12/08/23 09:26 Height 5 ft 2 in 5 ft 2 in 5 ft 2 in Weight: 144 lb 143 lb BMI 26.3 26.2 BP 137/73 H 149/72 H Blood Pressure Location Lt brachial Lt brachial Position Sitting Sitting Respiration 16 16 Pulse 52 L 50 L Pulse Source Monitor NIBP Intake Visit Reasons: 1 Y FU (MOVED FROM [facility]) Administrative Associate Required: No Is patient in pain?: No Allergies No Known Allergies Allergy (Verified 12/08/23 09:33) Medications ???Medication ???Instructions ???Recorded ???Confirmed ???Type acetaminophen 500 mg tablet 1,000 mg PO QHS PAIN 01/27/21 12/08/23 History ergocalciferol (vitamin D2) 1,250 1,250 mcg PO SUWE SUPPLEMENT 01/27/21 12/08/23 History mcg (50,000 unit) capsule fenofibrate 160 mg tablet 160 mg PO DAILY CHOLESTEROL 01/27/21 12/08/23 History gabapentin 300 mg capsule 300 mg PO BID NEUROPATHY 01/27/21 12/08/23 History levothyroxine 100 mcg tablet 100 mcg PO DAILY thyroid 01/27/21 12/08/23 History aspirin 81 mg tablet,delayed 81 mg PO DAILY heart health 03/11/21 12/08/23 History release (Adult Aspirin Regimen) amlodipine 5 mg tablet 5 mg PO DAILY 04/22/22 12/08/23 History oxybutynin chloride 10 mg 10 mg PO DAILY 04/22/22 12/08/23 History tablet,extended release 24 hr atorvastatin 20 mg tablet 20 mg PO DAILY #90 tabs 04/01/23 12/08/23 Rx amoxicillin 500 mg capsule 2,000 mg PO ONCE PRN 04/21/23 12/08/23 History losartan 100 mg tablet 100 mg PO DAILY #90 tabs 04/21/23 12/08/23 Rx clopidogrel 75 mg tablet mg PO 12/08/23 12/08/23 History metoprolol succinate 50 mg 25 mg (1/2 x 50 mg) PO DAILY #90 12/08/23 12/08/23 Rx tablet,extended release 24 hr tabs (Toprol XL) venlafaxine 75 mg capsule,extended 75 mg PO DAILY 12/08/23 12/08/23 History release 24 hr Ejection fraction %: 60 Have you fallen in the past year?: [facility] Atherosclerotic heart disease of [place] coronary artery without angina pectoris Dyspnea Exertional chest pain Hypothyroidism Essential hypertension Overactive bladder Depression Hyperlipidemia Multiple sclerosis Surgical History History of coronary artery stent placement (03/16/21) History of appendectomy History of left hip hemiarthroplasty History of tonsillectomy and adenoidectomy History of hysterectomy Family History Brother Hypertension Father Hypertension Social History Smoking Status: Never smoker alcohol intake: current alcohol intake harsh (more content not included)... Normal [facility] .GFRon 09-20-2023 GFR Non- 45 ml/min/1.73sqm Normal [facility] ([place]) Comment on above: Result Comment: GFR Population mean for , Non- Americans Ages 20-29 = 116 mL/min/1.73 sq.m. Ages 30-39 = 107 mL/min/1.73 sq.m. Ages 40-49 = 99 mL/min/1.73 sq.m. Ages 50-59 = 93 mL/min/1.73 sq.m. Ages 60-69 = 85 mL/min/1.73 sq.m. Ages 70+ = 75 mL/min/1.73 sq.m. Chronic Kidney Disease: Less than 60 mL/min/1.73 square meters End Stage Renal Disease: Less than 15 mL/min/1.73 square meters Performed By: #### C MP, TSHR, GFR #### [address] [address] GFR 55 ml/min/1.73sqm Normal [facility] ([place]) Comment on above: Result Comment: GFR Population mean for , Non- Americans Ages 20-29 = 116 mL/min/1.73 sq.m. Ages 30-39 = 107 mL/min/1.73 sq.m. Ages 40-49 = 99 mL/min/1.73 sq.m. Ages 50-59 = 93 mL/min/1.73 sq.m. Ages 60-69 = 85 mL/min/1.73 sq.m. Ages 70+ = 75 mL/min/1.73 sq.m. Chronic Kidney Disease: Less than 60 mL/min/1.73 square meters End Stage Renal Disease: Less than 15 mL/min/1.73 square meters Performed By: #### C MP, TSHR, GFR #### [address] [address] CMPon 09-20-2023 Albumin Level 4.1 G/dL Normal 3.4-4.8 [facility] ([place]) Comment on above: Performed By: #### C MP, TSHR, GFR #### [address] [address] Albumin/Globulin [Mass ratio] 1.5 {ratio} Normal 1.1-2.5 [facility] ([place]) Comment on above: Performed By: #### C MP, TSHR, GFR #### [address] [address] ALP [Catalytic activity/Vol] 40 U/L Normal 40-135 [facility] ([place]) Comment on above: Performed By: #### C MP, TSHR, GFR #### [address] [address] ALT [Catalytic activity/Vol] 25 U/L Normal 14-59 [facility] ([place]) Comment on above: Performed By: #### C MP, TSHR, GFR #### [address] [address] AST [Catalytic activity/Vol] 23 U/L Normal 10-40 [facility] ([place]) Comment on above: Performed By: #### C MP, TSHR, GFR #### [address] [address] Bili Total 0.5 mg/dL Normal 0.2-1.0 [facility] ([place]) Comment on above: Result Comment: Use of this assay is not recommended for patients undergoing treatment with eltrombopag due to the potential for falsely elevated results. Performed By: #### C MP, TSHR, GFR #### [place] [id number] BUN/Creatinine Ratio 10 ratio Normal 7-27 [facility] ([place]) Comment on above: Performed By: #### C MP, TSHR, GFR #### [address] [address] Calcium [Mass/Vol] 9.3 mg/dL Normal 8.4-10.2 [facility] ([place]) Comment on above: Performed By: #### C MP, TSHR, GFR #### [address] [address] Chloride [Moles/Vol] 106 mmol/L Normal 98-107 [facility] ([place]) Comment on above: Performed By: #### C MP, TSHR, GFR #### [address] [address] CO2 [Moles/Vol] 26 mmol/L Normal 23-31 [facility] ([place]) Comment on above: Performed By: #### C MP, TSHR, GFR #### [address] [address] Creatinine [Mass/Vol] 1.17 mg/dL High 0.55-1.02 [facility] ([place]) Comment on above: Performed By: #### C MP, TSHR, GFR #### [address] [address] Electrolyte Balance 9.0 mEq/L Normal 4.0-15.0 [facility] ([place]) Comment on above: Performed By: #### C MP, TSHR, GFR #### [address] [address] Globulin 2.7 G/dL Normal [facility] ([place]) Comment on above: Performed By: #### C MP, TSHR, GFR #### [address] [address] Glucose [Mass/Vol] 80 mg/dL Low 83-110 [facility] ([place]) Comment on above: Performed By: #### C MP, TSHR, GFR #### [address] [address] Potassium [Moles/Vol] 4.6 mmol/L Normal 3.5-5.1 [facility] ([place]) Comment on above: Performed By: #### C MP, TSHR, GFR #### [address] [address] Sodium [Moles/Vol] 141 mmol/L Normal 136-145 [facility] ([place]) Comment on above: Performed By: #### C MP, TSHR, GFR #### [address] [address] Total Protein 6.8 G/dL Normal 6.4-8.2 [facility] ([place]) Comment on above: Performed By: #### C MP, TSHR, GFR #### [address] [address] Urea nitrogen [Mass/Vol] 12 mg/dL Normal 7-18 [facility] ([place]) Comment on above: Performed By: #### C MP, TSHR, GFR #### [address] [address] TSHRon 09-20-2023 TSH Qn 1.99 m[IU]/L Normal 0.36-3.74 [facility] ([place]) Comment on above: Performed By: #### C MP, TSHR, GFR #### [address] [place] [address] .Auto Diffon 06-16-2023 Basophil, Absolute 0.0 10 3/mcL Normal 0.0-0.2 [facility] ([place]) Comment on above: Performed By: #### C MP, TSHR, GFR #### [address] [address] Basophils/100 WBC (Bld) 0.6 % Normal 0.0-2.5 [facility] ([place]) Comment on above: Performed By: #### C MP, TSHR, GFR #### [address] [address] Eosinophil, Absolute 0.2 10 3/mcL Normal [facility].0[facility]0.4 [facility] [place] Comment on above: Performed By: #### C MP, TSHR, GFR #### [address] [address] Eosinophils/100 WBC (Bld) 2.8 % Normal 0.0-7.0 [facility] ([place]) Comment on above: Performed By: #### C MP, TSHR, GFR #### [address] [address] Lymphocyte, Absolute 1.4 10 3/mcL Normal 0.8-3.9 [facility] [place] Comment on above: Performed By: #### C MP, TSHR, GFR #### [address] [address] Lymphocytes/100 WBC (Bld) 20.4 % Normal 10.0-50.0 [facility] ([place]) Comment on above: Performed By: #### C MP, TSHR, GFR #### [address] [address] Monocyte, Absolute 0.6 10 3/mcL Normal 0.2-1.0 [facility] ([place]) Comment on above: Performed By: #### C MP, TSHR, GFR #### [address] [address] Monocytes/100 WBC (Bld) 8.3 % Normal 1.7-13.0 [facility] ([place]) Comment on above: Performed By: #### C MP, TSHR, GFR #### [address] [address] Neutrophils/100 WBC (Bld) 67.9 % Normal 37.0-80.0 [facility] ([place]) Comment on above: Performed By: #### C MP, TSHR, GFR #### [address] [address] .GFRon 06-16-2023 GFR Non- 45 ml/min/1.73sqm Normal [facility] ([place]) Comment on above: Result Comment: GFR Population mean for , Non- Americans Ages 20-29 = 116 mL/min/1.73 sq.m. Ages 30-39 = 107 mL/min/1.73 sq.m. Ages 40-49 = 99 mL/min/1.73 sq.m. Ages 50-59 = 93 mL/min/1.73 sq.m. Ages 60-69 = 85 mL/min/1.73 sq.m. Ages 70+ = 75 mL/min/1.73 sq.m. Chronic Kidney Disease: Less than 60 mL/min/1.73 square meters End Stage Renal Disease: Less than 15 mL/min/1.73 square meters Performed By: #### C MP, TSHR, GFR #### [address] [address] GFR 55 ml/min/1.73sqm Normal [facility] ([place]) Comment on above: Result Comment: GFR Population mean for , Non- Americans Ages 20-29 = 116 mL/min/1.73 sq.m. Ages 30-39 = 107 mL/min/1.73 sq.m. Ages 40-49 = 99 mL/min/1.73 sq.m. Ages 50-59 = 93 mL/min/1.73 sq.m. Ages 60-69 = 85 mL/min/1.73 sq.m. Ages 70+ = 75 mL/min/1.73 sq.m. Chronic Kidney Disease: Less than 60 mL/min/1.73 square meters End Stage Renal Disease: Less than 15 mL/min/1.73 square meters Performed By: #### C MP, TSHR, GFR #### [place] [address] .NEUABSon 06-16-2023 Neutrophil, Absolute 4.7 10 3/mcL Normal 2.9-6.2 [facility] [place] Comment on above: Performed By: #### C MP, TSHR, GFR #### [place] [address] CBCon 06-16-2023 Erythrocyte distribution width (RBC) [Ratio] 13.4 % Normal 11.5-14.5 [facility] ([place]) Comment on above: Performed By: #### C MP, GFR, VIDH, ADIFF, LIPID, ANEU, CBC, FT3, FT4, TSH #### [place] [address] Hematocrit (Bld) [Volume fraction] 37.6 % Normal 37.0-47.0 [facility] ([place]) Comment on above: Performed By: #### C MP, GFR, VIDH, ADIFF, LIPID, ANEU, CBC, FT3, FT4, TSH #### [place] [address] Hgb 13.2 G/dL Normal 12.0-16.0 [facility] ([place]) Comment on above: Performed By: #### C MP, GFR, VIDH, ADIFF, LIPID, ANEU, CBC, FT3, FT4, TSH #### [place] [address] MCH (RBC) [Entitic mass] 31.6 pg High 27.0-31.2 [facility] ([place]) Comment on above: Performed By: #### C MP, GFR, VIDH, ADIFF, LIPID, ANEU, CBC, FT3, FT4, TSH #### [place] [address] MCHC 35.1 G/dL Normal 33.0-37.0 [facility] ([place]) Comment on above: Performed By: #### C MP, GFR, VIDH, ADIFF, LIPID, ANEU, CBC, FT3, FT4, TSH #### [address] [address] MCV (RBC) [Entitic vol] 90.1 fL Normal 80.0-94.0 [facility] ([place]) Comment on above: Performed By: #### C MP, GFR, VIDH, ADIFF, LIPID, ANEU, CBC, FT3, FT4, TSH #### [address] [address] Platelet 318 10 3/mcL Normal 130-400 [facility] ([place]) Comment on above: Performed By: #### C MP, GFR, VIDH, ADIFF, LIPID, ANEU, CBC, FT3, FT4, TSH #### [address] [address] Platelet mean volume (Bld) [Entitic vol] 8.2 fL Normal 7.4-10.4 [facility] ([place]) Comment on above: Performed By: #### C MP, GFR, VIDH, ADIFF, LIPID, ANEU, CBC, FT3, FT4, TSH #### [address] [address] RBC 4.18 10 6/mcL Low 4.20-5.40 [facility] ([place]) Comment on above: Performed By: #### C MP, GFR, VIDH, ADIFF, LIPID, ANEU, CBC, FT3, FT4, TSH #### [address] [address] WBC 6.9 10 3/mcL Normal 4.6-10.8 [facility] ([place]) Comment on above: Performed By: #### C MP, GFR, VIDH, ADIFF, LIPID, ANEU, CBC, FT3, FT4, TSH #### [address] [address] CMPon 06-16-2023 Chloride [Moles/Vol] 109 mmol/L High 98-107 [facility] ([place]) Comment on above: Performed By: #### C MP, TSHR, GFR #### [address] [address] Electrolyte Balance 8.0 mEq/L Normal 4.0-15.0 [facility] ([place]) Comment on above: Performed By: #### C MP, TSHR, GFR #### [address] [address] Potassium [Moles/Vol] 4.4 mmol/L Normal 3.5-5.1 [facility] ([place]) Comment on above: Performed By: #### C MP, TSHR, GFR #### [address] [address] Sodium [Moles/Vol] 144 mmol/L Normal 136-145 [facility] ([place]) Comment on above: Performed By: #### C MP, TSHR, GFR #### [address] [address] Albumin Level 3.9 G/dL Normal 3.4-4.8 [facility] ([place]) Comment on above: Performed By: #### C MP, TSHR, GFR #### [address] [address] Albumin/Globulin [Mass ratio] 1.6 {ratio} Normal 1.1-2.5 [facility] ([place]) Comment on above: Performed By: #### C MP, TSHR, GFR #### [address] [address] ALP [Catalytic activity/Vol] 45 U/L Normal 40-135 [facility] ([place]) Comment on above: Performed By: #### C MP, TSHR, GFR #### [address] [address] ALT [Catalytic activity/Vol] 29 U/L Normal 14-59 [facility] ([place]) Comment on above: Performed By: #### C MP, TSHR, GFR #### [address] [address] AST [Catalytic activity/Vol] 28 U/L Normal 10-40 [facility] ([place]) Comment on above: Performed By: #### C MP, TSHR, GFR #### [address] [address] Bili Total 0.5 mg/dL Normal 0.2-1.0 [facility] ([place]) Comment on above: Result Comment: Use of this assay is not recommended for patients undergoing treatment with eltrombopag due to the potential for falsely elevated results. Performed By: #### C MP, TSHR, GFR #### [address] [address] BUN/Creatinine Ratio 21 ratio Normal 7-27 [facility] ([place]) Comment on above: Performed By: #### C MP, TSHR, GFR #### [address] [address] Calcium [Mass/Vol] 9.4 mg/dL Normal 8.4-10.2 [facility] ([place]) Comment on above: Performed By: #### C MP, TSHR, GFR #### [address] [address] CO2 [Moles/Vol] 27 mmol/L Normal 23-31 [facility] ([place]) Comment on above: Performed By: #### C MP, TSHR, GFR #### [address] [address] Creatinine [Mass/Vol] 1.17 mg/dL High 0.55-1.02 [facility] ([place]) Comment on above: Performed By: #### C MP, TSHR, GFR #### [address] [address] Globulin 2.5 G/dL Normal [facility] ([place]) Comment on above: Performed By: #### C MP, TSHR, GFR #### [address] [address] Glucose [Mass/Vol] 91 mg/dL Normal 83-110 [facility] ([place]) Comment on above: Performed By: #### C MP, TSHR, GFR #### [address] [address] Total Protein 6.4 G/dL Normal 6.4-8.2 [facility] ([place]) Comment on above: Performed By: #### C MP, TSHR, GFR #### [address] [address] Urea nitrogen [Mass/Vol] 25 mg/dL High 7-18 [facility] ([place]) Comment on above: Performed By: #### C MP, TSHR, GFR #### [address] [address] FT3on 06-16-2023 Free T3 [Mass/Vol] 1.96 pg/mL Low 2.30-4.00 [facility] ([place]) Comment on above: Performed By: #### C MP, TSHR, GFR #### [address] [address] FT4on 06-16-2023 Free T4 [Mass/Vol] 1.28 ng/dL Normal 0.76-1.46 [facility] ([place]) Comment on above: Performed By: #### C MP, TSHR, GFR #### [address] [address] LABORATORYOrdered By: SYSTEM SYSTEM on 06-16-2023 25-hydroxyvitamin D3 [Mass/Vol] 83.7 ng/mL Invalid Interpretation Code AO ADM SS Comment on above: Interpretive Data: I nterpretive Values Based on Total 25(OH) Vitamin D: Deficient <20 ng/mL Insufficient 20 - <30 ng/mL Sufficient 30-100 ng/mL Albumin BCP dye [Mass/Vol] 3.9 G/dL Normal 3.4 - 4.8 G/dL AO ADM SS Albumin/Globulin [Mass ratio] 1.6 {ratio} Normal 1.1 - 2.5 ratio AO ADM SS ALP [Catalytic activity/Vol] 45 U/L Normal 40 - 135 U/L AO ADM SS ALT With P-5'-P [Catalytic activity/Vol] 29 U/L Normal 14 - 59 U/L AO ADM SS AST With P-5'-P [Catalytic activity/Vol] 28 U/L Normal 10 - 40 U/L AO ADM SS Basophil, Absolute 0.0 103/mcL Normal 0.0 - 0.2 10^3/mcL AO Workflow SS Basophils/100 WBC (Bld) 0.6 % Normal 0.0 - 2.5 % AO Workflow SS Bilirubin [Mass/Vol] 0.5 mg/dL Normal 0.2 - 1 .0 mg/dL AO ADM SS Comment on above: Interpretive Data: U se of this assay is not recommended for patients undergoing treatment with eltrombopag due to the potential for falsely elevated results. Calcium [Mass/Vol] 9.4 mg/dL Normal 8.4 - 10. 2 mg/dL AO ADM SS Chloride [Moles/Vol] 109 mmol/L High 98 - 10 7 mmol/L AO ADM SS CO2 [Moles/Vol] 27 mmol/L Normal 23 - 31 mmol/L AO ADM SS Creatinine [Mass/Vol] 1.17 mg/dL High 0.55 - 1.02 mg/dL AO ADM SS Electrolyte Balance 8.0 mEq/L Normal 4.0 - 15 .0 mEq/L AO ADM SS Eosinophil, Absolute 0.2 103/mcL Normal 0.0 - 0 .4 10^3/mcL AO Workflow SS Eosinophils/100 WBC (Bld) 2.8 % Normal 0.0 - 7.0 % AO Workflow SS Erythrocyte distribution width (RBC) [Ratio] 13.4 % Normal 11.5 - 14.5 % AO Workflow SS Free T3 [Mass/Vol] 1.96 pg/mL Low 2.30 - 4. 00 pg/mL AO ADM SS Free T4 [Mass/Vol] 1.28 ng/dL Normal 0.76 - 1. 46 ng/dL AO ADM SS GFR/1.73 sq M.predicted among blacks MDRD (S/P/Bld) [Vol rate/Area] 55 ml/min/1.73sqm Invalid Interpretation Code AO Chemistry S Comment on above: Interpretive Data: GFR Population mean for , Non- Americans Ages 20-29 = 116 mL/min/1.73 sq.m. Ages 30-39 = 107 mL/min/1.73 sq.m. Ages 40-49 = 99 mL/min/1.73 sq.m. Ages 50-59 = 93 mL/min/1.73 sq.m. Ages 60-69 = 85 mL/min/1.73 sq.m. Ages 70+ = 75 mL/min/1.73 sq.m. Chronic Kidney Disease: Less than 60 mL/min/1.73 square meters End Stage Renal Disease: Less than 15 mL/min/1.73 square meters GFR/1.73 sq M.predicted among non-blacks MDRD (S/P/Bld) [Vol rate/Area] 45 ml/min/1.73sqm Invalid Interpretation Code AO Chemistry S Comment on above: Interpretive Data: GFR Population mean for , Non- Americans Ages 20-29 = 116 mL/min/1.73 sq.m. Ages 30-39 = 107 mL/min/1.73 sq.m. Ages 40-49 = 99 mL/min/1.73 sq.m. Ages 50-59 = 93 mL/min/1.73 sq.m. Ages 60-69 = 85 mL/min/1.73 sq.m. Ages 70+ = 75 mL/min/1.73 sq.m. Chronic Kidney Disease: Less than 60 mL/min/1.73 square meters End Stage Renal Disease: Less than 15 mL/min/1.73 square meters Globulin 2.5 G/dL Invalid Interpretation Code AO ADM SS Glucose [Mass/Vol] 91 mg/dL Normal 83 - 110 mg/dL AO ADM SS Hematocrit (Bld) [Volume fraction] 37.6 % Normal 37.0 - 47.0 % AO Workflow SS Hemoglobin (Bld) [Mass/Vol] 13.2 G/dL Normal 12.0 - 16.0 G/dL AO Workflow SS Lymphocyte, Absolute 1.4 103/mcL Normal 0.8 - 3 .9 10^3/mcL AO Workflow SS Lymphocytes/100 WBC (Bld) 20.4 % Normal 10.0 - 50.0 % AO Workflow SS MCH (RBC) [Entitic mass] 31.6 pg High 27.0 - 31.2 pg AO Workflow SS MCHC 35.1 G/dL Normal 33.0 - 37.0 G/dL AO Workflow SS MCV (RBC) [Entitic vol] 90.1 fL Normal 80.0 - 94.0 fL AO Workflow SS Monocyte, Absolute 0.6 103/mcL Normal 0.2 - 1.0 10^3/mcL AO Workflow SS Monocytes/100 WBC (Bld) 8.3 % Normal 1.7 - 13.0 % AO Workflow SS Neutrophil, Absolute 4.7 103/mcL Normal 2.9 - 6 .2 10^3/mcL AO Workflow SS Neutrophils/100 WBC (Bld) 67.9 % Normal 37.0 - 80.0 % AO Workflow SS Platelet mean volume (Bld) [Entitic vol] 8.2 fL Normal 7.4 - 10.4 fL AO Workflow SS Platelets (Bld) [#/Vol] 318 103/mcL Normal 130 - 400 10^3/mcL AO Workflow SS Potassium [Moles/Vol] 4.4 mmol/L Normal 3.5 - 5.1 mmol/L AO ADM SS Protein [Mass/Vol] 6.4 G/dL Normal 6.4 - 8.2 G/dL AO ADM SS RBC (Bld) [#/Vol] 4.18 106/mcL Low 4.20 - 5.4 0 10^6/mcL AO Workflow SS Sodium [Moles/Vol] 144 mmol/L Normal 136 - 145 mmol/L AO ADM SS TSH Qn 0.26 m[IU]/L Low 0.36 - 3.74 mcIU/mL AO ADM SS Urea nitrogen [Mass/Vol] 25 mg/dL High 7 - 18 mg/dL AO ADM SS Urea nitrogen/Creatinine [Mass ratio] 21 ratio Normal 7 - 27 ratio AO ADM SS WBC (Bld) [#/Vol] 6.9 103/mcL Normal 4.6 - 10.8 10^3/mcL AO Workflow SS LABORATORYOrdered By: Zoey Yi on 06-16-2023 Cholesterol [Mass/Vol] 146 mg/dL Normal 0 - 200 mg/dL AO ADM SS Comment on above: Interpretive Data: C holesterol Reference Interval: Less than 200 Desirable 200-239 Borderline high risk 240 and above High risk Cholesterol in HDL [Mass/Vol] 47 mg/dL Normal 40 - 60 mg/dL AO ADM SS Cholesterol in LDL [Mass/Vol] 84 mg/dL Normal 0 - 130 mg/dL AO ADM SS Triglyceride [Mass/Vol] 73 mg/dL Normal 0 - 150 mg/dL AO ADM SS Comment on above: Interpretive Data: T riglyceride Reference Interval: Less than 150 Normal 150-199 Borderline high risk 200-499 High risk 500 or higher Very high risk LIPIDon 06-16-2023 Cholesterol [Mass/Vol] 146 mg/dL Normal 0-200 [facility] ([place]) Comment on above: Result Comment: Chol esterol Reference Interval: Less than 200 Desirable 200-239 Borderline high risk 240 and above High risk Performed By: #### C MP, TSHR, GFR #### [place] [address] Cholesterol in HDL [Mass/Vol] 47 mg/dL Normal 40-60 [facility] ([place]) Comment on above: Performed By: #### C MP, TSHR, GFR #### [place] [address] Cholesterol in LDL [Mass/Vol] 84 mg/dL Normal 0-130 [facility] ([place]) Comment on above: Performed By: #### C MP, TSHR, GFR #### [place] [address] Triglyceride [Mass/Vol] 73 mg/dL Normal 0-150 [facility] ([place]) Comment on above: Result Comment: Trig lyceride Reference Interval: Less than 150 Normal 150-199 Borderline high risk 200-499 High risk 500 or higher Very high risk Performed By: #### C MP, TSHR, GFR #### [place] [address] TSHon 06-16-2023 TSH Qn 0.26 m[IU]/L Low 0.36-3.74 [facility] ([place]) Comment on above: Performed By: #### C MP, TSHR, GFR #### [place] [address] VIDHon 06-16-2023 Vit. D 25-Hydroxy 83.7 ng/mL Normal [facility] ([place]) Comment on above: Result Comment: Inte rpretive Values Based on Total 25(OH) Vitamin D: Deficient <20 ng/mL Insufficient 20 - <30 ng/mL Sufficient 30-100 ng/mL Performed By: #### C MP, TSHR, GFR #### [place] [address] LABORATORYOrdered By: Maryellen George on 04-19-2023 Albumin DL <= 20 mg/L (U) [Mass/Vol] 919 mcg/dL Invalid Interpretation Code AO ADM SS Albumin/Creatinine DL <= 20 mg/L (U) [Mass ratio] 5 mcg/mg Normal 0 - 30 mcg/mg AO ADM SS Creatinine (U) [Mass/Vol] 196.9 mg/dL High 28.0 - 117.0 mg/dL AO ADM SS MALBRon 04-19-2023 U Creatinine 196.9 mg/dL High 28.0-117.0 [facility] ([place]) Comment on above: Performed By: #### M ALBR #### [address] [address] U Microalb 919 mcg/dL Normal [facility] ([place]) Comment on above: Performed By: #### M ALBR #### [address] [address] U Ratio Alb/Cre 5 mcg/mg Normal 0-30 [facility] ([place]) Comment on above: Performed By: #### M ALBR #### [address] [address] [place] MAMMOGRAM SCREENING BILAT ERAL W/TOMOon 03-14-2023 MA MAMMOGRAM SCREENING BILATERAL W/JOSH ORIGINAL FROM: [address] [address] PROCEDURE FOR: SOREN MCDANIELS [address] [place] [address] Home: PID#: [id number] Exam#: [id number] : 1950 Age: 72 TO: KEYONNA CAMARENA DO [address] [address] Fax: NO FAX EXAMINATION: SCREENING DIGITAL BILATERAL MAMMOGRAM WITH TOMOSYNTHESIS, 03/14/2023 TECHNIQUE: Screening mammography of the bilateral breasts was performed with tomosynthesis. 2D standard and 3D tomosynthesis combination imaging performed through both breasts in the MLO and CC projection. Computer aided detection was utilized in the interpretation of this exam. COMPARISON: 03/12/2022 HISTORY: Screening. FINDINGS: BREAST DENSITY: Scattered fibroglandular tissue There is a benign right-sided breast calcification. There are no significant masses or calcifications. IMPRESSION: No mammographic evidence of malignancy. Continued screening with annual mammograms is recommended. BIRADS: MAMMOGRAM BI-RADS: 2: Benign finding RECALL: 1 year screening RECALL TYPE: mammo LETTER SENT: Normal BI-RADS 1 and 2 Interpreted by: Michele Chang MD Preliminary Report By: Michele Chang MD Electronically signed By Michele Chang MD Dictated Date: 03/14/2023 8:08:28 PM Prelim Date: 03/14/2023 8:10:01 PM Sign Date: 03/14/2023 8:10:01 PM Ordering Provider: KEYONNA CAMARENA [place] Planning Manager: JASSON CASEY RT (R) (M) (CT) letter sent: Normal BI-RADS 1 and 2 Mammogram BI-RADS: 2 Benign Normal [facility] ([place]) .GFRon 12-14-2022 GFR 48 ml/min/1.73sqm Normal [facility] ([place]) Comment on above: Result Comment: GFR Population mean for , Non- Americans Ages 20-29 = 116 mL/min/1.73 sq.m. Ages 30-39 = 107 mL/min/1.73 sq.m. Ages 40-49 = 99 mL/min/1.73 sq.m. Ages 50-59 = 93 mL/min/1.73 sq.m. Ages 60-69 = 85 mL/min/1.73 sq.m. Ages 70+ = 75 mL/min/1.73 sq.m. Chronic Kidney Disease: Less than 60 mL/min/1.73 square meters End Stage Renal Disease: Less than 15 mL/min/1.73 square meters Performed By: #### V IDH, CMP, TSH, GFR #### [place] [address] GFR Non- 40 ml/min/1.73sqm Normal [facility] ([place]) Comment on above: Result Comment: GFR Population mean for , Non- Americans Ages 20-29 = 116 mL/min/1.73 sq.m. Ages 30-39 = 107 mL/min/1.73 sq.m. Ages 40-49 = 99 mL/min/1.73 sq.m. Ages 50-59 = 93 mL/min/1.73 sq.m. Ages 60-69 = 85 mL/min/1.73 sq.m. Ages 70+ = 75 mL/min/1.73 sq.m. Chronic Kidney Disease: Less than 60 mL/min/1.73 square meters End Stage Renal Disease: Less than 15 mL/min/1.73 square meters Performed By: #### V IDH, CMP, TSH, GFR #### [address] [address] CMPon 12-14-2022 Albumin Level 4.2 G/dL Normal 3.4-4.8 [facility] ([place]) Comment on above: Performed By: #### V IDH, CMP, TSH, GFR #### [address] [address] Albumin/Globulin [Mass ratio] 1.7 {ratio} Normal 1.1-2.5 [facility] ([place]) Comment on above: Performed By: #### V IDH, CMP, TSH, GFR #### [address] [address] ALP [Catalytic activity/Vol] 37 U/L Low 40-135 [facility] ([place]) Comment on above: Performed By: #### V IDH, CMP, TSH, GFR #### [address] [address] ALT [Catalytic activity/Vol] 24 U/L Normal 14-59 [facility] ([place]) Comment on above: Performed By: #### V IDH, CMP, TSH, GFR #### [address] [address] AST [Catalytic activity/Vol] 18 U/L Normal 10-40 [facility] ([place]) Comment on above: Performed By: #### V IDH, CMP, TSH, GFR #### [address] [address] Bili Total 0.5 mg/dL Normal 0.2-1.0 [facility] ([place]) Comment on above: Result Comment: Use of this assay is not recommended for patients undergoing treatment with eltrombopag due to the potential for falsely elevated results. Performed By: #### V IDH, CMP, TSH, GFR #### [address] [address] BUN/Creatinine Ratio 17 ratio Normal 7-27 [facility] ([place]) Comment on above: Performed By: #### V IDH, CMP, TSH, GFR #### [address] [address] Calcium [Mass/Vol] 9.1 mg/dL Normal 8.4-10.2 [facility] ([place]) Comment on above: Performed By: #### V IDH, CMP, TSH, GFR #### [address] [address] Chloride [Moles/Vol] 104 mmol/L Normal 98-107 [facility] ([place]) Comment on above: Performed By: #### V IDH, CMP, TSH, GFR #### [place] [id number] CO2 [Moles/Vol] 30 mmol/L Normal 23-31 [facility] ([place]) Comment on above: Performed By: #### V IDH, CMP, TSH, GFR #### [address] [address] Creatinine [Mass/Vol] 1.31 mg/dL High 0.55-1.02 [facility] ([place]) Comment on above: Performed By: #### V IDH, CMP, TSH, GFR #### [address] [address] Electrolyte Balance 6.0 mEq/L Normal 4.0-15.0 [facility] ([place]) Comment on above: Performed By: #### V IDH, CMP, TSH, GFR #### [address] [address] Globulin 2.5 G/dL Normal [facility] ([place]) Comment on above: Performed By: #### V IDH, CMP, TSH, GFR #### [address] [address] Glucose [Mass/Vol] 87 mg/dL Normal 83-110 [facility] ([place]) Comment on above: Performed By: #### V IDH, CMP, TSH, GFR #### [address] [address] Potassium [Moles/Vol] 4.8 mmol/L Normal 3.5-5.1 [facility] ([place]) Comment on above: Performed By: #### V IDH, CMP, TSH, GFR #### [address] [address] Sodium [Moles/Vol] 140 mmol/L Normal 136-145 [facility] ([place]) Comment on above: Performed By: #### V IDH, CMP, TSH, GFR #### [address] [address] Total Protein 6.7 G/dL Normal 6.4-8.2 [facility] ([place]) Comment on above: Performed By: #### V IDH, CMP, TSH, GFR #### [address] [address] Urea nitrogen [Mass/Vol] 22 mg/dL High 7-18 [facility] ([place] Comment on above: Performed By: #### V IDH, CMP, TSH, GFR #### [address] [address] LABORATORYOrdered By: SYSTEM SYSTEM on 12-14-2022 25-hydroxyvitamin D3 [Mass/Vol] 87.5 ng/mL Invalid Interpretation Code AO ADM SS Comment on above: Interpretive Data: I nterpretive Values Based on Total 25(OH) Vitamin D: Deficient <20 ng/mL Insufficient 20 - <30 ng/mL Sufficient 30-100 ng/mL Albumin BCP dye [Mass/Vol] 4.2 G/dL Invalid Interpretation Code 3.4 - 4.8 G/dL AO ADM SS Albumin/Globulin [Mass ratio] 1.7 {ratio} Invalid Interpretation Code 1.1 - 2.5 ratio AO ADM SS ALP [Catalytic activity/Vol] 37 U/L Invalid Interpretation Code 40 - 135 U/L AO ADM SS ALT With P-5'-P [Catalytic activity/Vol] 24 U/L Invalid Interpretation Code 14 - 59 U/L AO ADM SS AST With P-5'-P [Catalytic activity/Vol] 18 U/L Invalid Interpretation Code 10 - 40 U/L AO ADM SS Bilirubin [Mass/Vol] 0.5 mg/dL Invalid Interpretation Code 0.2 - 1.0 mg/dL AO ADM SS Comment on above: Interpretive Data: U se of this assay is not recommended for patients undergoing treatment with eltrombopag due to the potential for falsely elevated results. Calcium [Mass/Vol] 9.1 mg/dL Invalid Interpretation Code 8.4 - 10.2 mg/dL AO ADM SS Chloride [Moles/Vol] 104 mmol/L Invalid Interpretation Code 98 - 107 mmol/L AO ADM SS CO2 [Moles/Vol] 30 mmol/L Invalid Interpretation Code 23 - 31 mmol/L AO ADM SS Creatinine [Mass/Vol] 1.31 mg/dL Invalid Interpretation Code 0.55 - 1.02 mg/dL AO ADM SS Electrolyte Balance 6.0 mEq/L Invalid Interpretation Code 4.0 - 15.0 mEq/L AO ADM SS GFR/1.73 sq M.predicted among blacks MDRD (S/P/Bld) [Vol rate/Area] 48 ml/min/1.73sqm Invalid Interpretation Code AO Chemistry S Comment on above: Interpretive Data: GFR Population mean for , Non- Americans Ages 20-29 = 116 mL/min/1.73 sq.m. Ages 30-39 = 107 mL/min/1.73 sq.m. Ages 40-49 = 99 mL/min/1.73 sq.m. Ages 50-59 = 93 mL/min/1.73 sq.m. Ages 60-69 = 85 mL/min/1.73 sq.m. Ages 70+ = 75 mL/min/1.73 sq.m. Chronic Kidney Disease: Less than 60 mL/min/1.73 square meters End Stage Renal Disease: Less than 15 mL/min/1.73 square meters GFR/1.73 sq M.predicted among non-blacks MDRD (S/P/Bld) [Vol rate/Area] 40 ml/min/1.73sqm Invalid Interpretation Code AO Chemistry S Comment on above: Interpretive Data: GFR Population mean for , Non- Americans Ages 20-29 = 116 mL/min/1.73 sq.m. Ages 30-39 = 107 mL/min/1.73 sq.m. Ages 40-49 = 99 mL/min/1.73 sq.m. Ages 50-59 = 93 mL/min/1.73 sq.m. Ages 60-69 = 85 mL/min/1.73 sq.m. Ages 70+ = 75 mL/min/1.73 sq.m. Chronic Kidney Disease: Less than 60 mL/min/1.73 square meters End Stage Renal Disease: Less than 15 mL/min/1.73 square meters Globulin 2.5 G/dL Invalid Interpretation Code AO ADM SS Glucose [Mass/Vol] 87 mg/dL Invalid Interpretation Code 83 - 110 mg/dL AO ADM SS Potassium [Moles/Vol] 4.8 mmol/L Invalid Interpretation Code 3.5 - 5.1 mmol/L AO ADM SS Protein [Mass/Vol] 6.7 G/dL Invalid Interpretation Code 6.4 - 8.2 G/dL AO ADM SS Sodium [Moles/Vol] 140 mmol/L Invalid Interpretation Code 136 - 145 mmol/L AO ADM SS TSH Qn 0.77 m[IU]/L Invalid Interpretation Code 0.36 - 3.74 mcIU/mL AO ADM SS Urea nitrogen [Mass/Vol] 22 mg/dL Invalid Interpretation Code 7 - 18 mg/dL AO ADM SS Urea nitrogen/Creatinine [Mass ratio] 17 ratio Invalid Interpretation Code 7 - 27 ratio AO ADM SS TSHon 12-14-2022 TSH Qn 0.77 m[IU]/L Normal 0.36-3.74 [facility] ([place]) Comment on above: Performed By: #### V IDH, CMP, TSH, GFR #### [place] [address] VIDHon 12-14-2022 Vit. D 25-Hydroxy 87.5 ng/mL Normal [facility] ([place]) Comment on above: Result Comment: Inte rpretive Values Based on Total 25(OH) Vitamin D: Deficient <20 ng/mL Insufficient 20 - <30 ng/mL Sufficient 30-100 ng/mL Performed By: #### V IDH, CMP, TSH, GFR #### [address] [address] LABORATORYOrdered By: SYSTEM SYSTEM on 06-22-2022 Albumin BCP dye [Mass/Vol] 4.1 G/dL Invalid Interpretation Code 3.4 - 4.8 G/dL AO ADM SS Albumin/Globulin [Mass ratio] 1.6 {ratio} Invalid Interpretation Code 1.1 - 2.5 ratio AO ADM SS ALP [Catalytic activity/Vol] 60 U/L Invalid Interpretation Code 40 - 135 U/L AO ADM SS ALT With P-5'-P [Catalytic activity/Vol] 18 U/L Invalid Interpretation Code 14 - 59 U/L AO ADM SS AST With P-5'-P [Catalytic activity/Vol] 16 U/L Invalid Interpretation Code 10 - 40 U/L AO ADM SS Bilirubin [Mass/Vol] 0.4 mg/dL Invalid Interpretation Code 0.2 - 1.0 mg/dL AO ADM SS Calcium [Mass/Vol] 9.9 mg/dL Invalid Interpretation Code 8.4 - 10.2 mg/dL AO ADM SS Chloride [Moles/Vol] 108 mmol/L Invalid Interpretation Code 98 - 107 mmol/L AO ADM SS CO2 [Moles/Vol] 28 mmol/L Invalid Interpretation Code 23 - 31 mmol/L AO ADM SS Creatinine [Mass/Vol] 1.33 mg/dL Invalid Interpretation Code 0.55 - 1.02 mg/dL AO ADM SS Electrolyte Balance 8.0 mEq/L Invalid Interpretation Code 4.0 - 15.0 mEq/L AO ADM SS GFR 48 ml/min/1.73sqm Invalid Interpretation Code AO Chemistry S GFR Non- 39 ml/min/1.73sqm Invalid Interpretation Code AO Chemistry S Globulin 2.5 G/dL Invalid Interpretation Code AO ADM SS Glucose [Mass/Vol] 86 mg/dL Invalid Interpretation Code 83 - 110 mg/dL AO ADM SS Potassium [Moles/Vol] 4.5 mmol/L Invalid Interpretation Code 3.5 - 5.1 mmol/L AO ADM SS Prealbumin [Mass/Vol] 28.9 mg/dL Invalid Interpretation Code 10.0 - 40.0 mg/dL AH ADM SS Protein [Mass/Vol] 6.6 G/dL Invalid Interpretation Code 6.4 - 8.2 G/dL AO ADM SS Sodium [Moles/Vol] 144 mmol/L Invalid Interpretation Code 136 - 145 mmol/L AO ADM SS Urea nitrogen [Mass/Vol] 27 mg/dL Invalid Interpretation Code 7 - 18 mg/dL AO ADM SS Urea nitrogen/Creatinine [Mass ratio] 20 ratio Invalid Interpretation Code 7 - 27 ratio AO ADM SS LABORATORYOrdered By: Taqueria Phillips on 06-22-2022 Basophil, Absolute 0.0 103/mcL Invalid Interpretation Code 0.0 - 0.2 10^3/mcL AO Workflow SS Basophils/100 WBC (Bld) 0.5 % Invalid Interpretation Code 0.0 - 2.5 % AO Workflow SS Eosinophil, Absolute 0.2 103/mcL Invalid Interpretation Code 0.0 - 0.4 10^3/mcL AO Workflow SS Eosinophils/100 WBC (Bld) 2.5 % Invalid Interpretation Code 0.0 - 7.0 % AO Workflow SS Erythrocyte distribution width (RBC) [Ratio] 14.1 % Invalid Interpretation Code 11.5 - 14.5 % AO Workflow SS Hematocrit (Bld) [Volume fraction] 36.4 % Invalid Interpretation Code 37.0 - 47.0 % AO Workflow SS Hemoglobin (Bld) [Mass/Vol] 12.4 G/dL Invalid Interpretation Code 12.0 - 16.0 G/dL AO Workflow SS Lymphocyte, Absolute 1.4 103/mcL Invalid Interpretation Code 0.8 - 3.9 10^3/mcL AO Workflow SS Lymphocytes/100 WBC (Bld) 21.5 % Invalid Interpretation Code 10.0 - 50.0 % AO Workflow SS MCH (RBC) [Entitic mass] 31.4 pg Invalid Interpretation Code 27.0 - 31.2 pg AO Workflow SS MCHC 34.1 G/dL Invalid Interpretation Code 33.0 - 37.0 G/dL AO Workflow SS MCV (RBC) [Entitic vol] 92.0 fL Invalid Interpretation Code 80.0 - 94.0 fL AO Workflow SS Monocyte, Absolute 0.6 103/mcL Invalid Interpretation Code 0.2 - 1.0 10^3/mcL AO Workflow SS Monocytes/100 WBC (Bld) 9.0 % Invalid Interpretation Code 1.7 - 13.0 % AO Workflow SS Neutrophil, Absolute 4.5 103/mcL Invalid Interpretation Code 2.9 - 6.2 10^3/mcL AO Workflow SS Neutrophils/100 WBC (Bld) 66.5 % Invalid Interpretation Code 37.0 - 80.0 % AO Workflow SS Platelet mean volume (Bld) [Entitic vol] 7.9 fL Invalid Interpretation Code 7.4 - 10.4 fL AO Workflow SS Platelets (Bld) [#/Vol] 325 103/mcL Invalid Interpretation Code 130 - 400 10^3/mcL AO Workflow SS RBC (Bld) [#/Vol] 3.96 106/mcL Invalid Interpretation Code 4.20 - 5.40 10^6/mcL AO Workflow SS WBC (Bld) [#/Vol] 6.7 103/mcL Invalid Interpretation Code 4.6 - 10.8 10^3/mcL AO Workflow SS Basophil percentageOrdered B y: Dr. Martínez on 04-22-2022 Bilirubin [Mass/Vol] 0.40 mg/dL 0.20-1.[address] [facility] Comment on above: For patients on eltr ombopag therapy, use of Dimension [place] TBIL is not recommended. Cholesterol [Mass/Vol] 153 mg/dL <200 [facility] Comment on above: <200 mg/dL Desirable 200-240 mg/dL Borderline >240 mg/dL High Risk Protein [Mass/Vol] 6.7 g/dL 6.4-8.2 [facility] Triglyceride [Mass/Vol] 188 mg/dL <199 [facility] Comment on above: The drugs N-Acetylcy steine and Metamizole may falsely depress this assay.Serum Triglycerides Reference Interval Normal <150 mg/dL Borderline high 150 - 199 mg/dL High 200 - 499 mg/dL Very High > or = 500 mg/dL Direct bilirubinOrdered By: Dr. Martínez on 04-22-2022 Bilirubin.direct [Mass/Vol] 0.16 mg/dL 0.00-0.30 [facility] Laboratory - Chemistry and C hemistry - challengeOrdered By: Dr. Martínez on 04-22-2022 ALP [Catalytic activity/Vol] 38 U/L 45-117 [facility] ALT [Catalytic activity/Vol] 22 U/L 13-56 [facility] Globulin (S) [Mass/Vol] 2.8 g/dL 2.2-4.2 [facility] Serum or plasma albumin sergio urement (mass/volume)Ordered By: Dr. Martínez on 04-22-2022 Albumin [Mass/Vol] 3.9 g/dL 3.2-5.0 [facility] Serum or plasma cholesterol in HDL measurement (mass/volume)Ordered By: Dr. Martínez on 04-22-2022 Cholesterol in HDL [Mass/Vol] 51 mg/dL >40 [facility] Comment on above: The drugs N-Acetylcy steine and Metamizole may falsely depress this assay. Reference Range HDL <40 mg/dL Low HDL Cholesterol HDL >or= 60 mg/dL High HDL Cholesterol Serum or plasma cholesterol in VLDL measurement (mass/volume)Ordered By: Dr. Martínez on 04-22-2022 Cholesterol in VLDL [Mass/Vol] 38 mg/dL 5-40 [facility] Serum or plasma low density lipoprotein (LDL) cholesterol measurement (mass/volume)Ordered By: Dr. Martínez on 04-22-2022 Cholesterol in LDL [Mass/Vol] 64 mg/dL 0-130 [facility] Thin prep Papanicolaou smear with manual screeningOrdered By: Dr. Martínez on 04-22-2022 Thin prep Papanicolaou smear with manual screening 13 U/L 15-37 [facility] LABORATORYOrdered By: Maryellen George on 02-11-2022 Albumin BCP dye [Mass/Vol] 4.6 G/dL Invalid Interpretation Code 3.4 - 4.8 G/dL AO ADM SS Albumin/Globulin [Mass ratio] 1.7 {ratio} Invalid Interpretation Code 1.1 - 2.5 ratio AO ADM SS ALP [Catalytic activity/Vol] 60 U/L Invalid Interpretation Code 40 - 135 U/L AO ADM SS ALT With P-5'-P [Catalytic activity/Vol] 28 U/L Invalid Interpretation Code 14 - 59 U/L AO ADM SS AST With P-5'-P [Catalytic activity/Vol] 25 U/L Invalid Interpretation Code 10 - 40 U/L AO ADM SS Bilirubin [Mass/Vol] 0.5 mg/dL Invalid Interpretation Code 0.2 - 1.0 mg/dL AO ADM SS Calcium [Mass/Vol] 10.3 mg/dL Invalid Interpretation Code 8.4 - 10.2 mg/dL AO ADM SS Chloride [Moles/Vol] 105 mmol/L Invalid Interpretation Code 98 - 107 mmol/L AO ADM SS Cholesterol [Mass/Vol] 189 mg/dL Invalid Interpretation Code 0 - 200 mg/dL AO ADM SS Cholesterol in HDL [Mass/Vol] 54 mg/dL Invalid Interpretation Code 40 - 60 mg/dL AO ADM SS Cholesterol in LDL [Mass/Vol] 111 mg/dL Invalid Interpretation Code 0 - 130 mg/dL AO ADM SS CO2 [Moles/Vol] 30 mmol/L Invalid Interpretation Code 23 - 31 mmol/L AO ADM SS Creatinine [Mass/Vol] 1.11 mg/dL Invalid Interpretation Code 0.55 - 1.02 mg/dL AO ADM SS Electrolyte Balance 6.0 mEq/L Invalid Interpretation Code 4.0 - 15.0 mEq/L AO ADM SS Globulin 2.7 G/dL Invalid Interpretation Code AO ADM SS Glucose [Mass/Vol] 83 mg/dL Invalid Interpretation Code 83 - 110 mg/dL AO ADM SS Potassium [Moles/Vol] 4.8 mmol/L Invalid Interpretation Code 3.5 - 5.1 mmol/L AO ADM SS Protein [Mass/Vol] 7.3 G/dL Invalid Interpretation Code 6.4 - 8.2 G/dL AO ADM SS Sodium [Moles/Vol] 141 mmol/L Invalid Interpretation Code 136 - 145 mmol/L AO ADM SS Triglyceride [Mass/Vol] 119 mg/dL Invalid Interpretation Code 0 - 150 mg/dL AO ADM SS TSH Qn 0.71 m[IU]/L Invalid Interpretation Code 0.36 - 3.74 mcIU/mL AO ADM SS Urea nitrogen [Mass/Vol] 26 mg/dL Invalid Interpretation Code 7 - 18 mg/dL AO ADM SS Urea nitrogen/Creatinine [Mass ratio] 23 ratio Invalid Interpretation Code 7 - 27 ratio AO ADM SS Vit. D 25-Hydroxy 89.4 ng/mL Invalid Interpretation Code AO ADM SS LABORATORYOrdered By: Givit SYSTEM on 02-11-2022 GFR 59 ml/min/1.73sqm Invalid Interpretation Code AO Chemistry S GFR Non- 48 ml/min/1.73sqm Invalid Interpretation Code AO Chemistry S LABORATORYOrdered By: Diego castañeda on 02-11-2022 HCV Ab IA Ql Non-Reactive (02/11/22 10:43 AM) Invalid Interpretation Code Non-Reactive AH ADM SS HCV Ab IA Ql Nonreactive: Samples with a value < 0.80 are considered nonreactive (negative) for antibodies to HCV.A negative test result does not exclude the possibility of exposure to or infection with HCV. HCV antibodies may be undetectable in some stages of the infection and in some clinical conditions. Invalid Interpretation Code AH Chemistry S LABORATORYOrdered By: Rahat Khalil on 05-05-2021 Albumin BCP dye [Mass/Vol] 4.3 G/dL Invalid Interpretation Code 3.4 - 4.8 G/dL AO ADM SS Albumin/Globulin [Mass ratio] 1.5 {ratio} Invalid Interpretation Code 1.1 - 2.5 ratio AO ADM SS ALP [Catalytic activity/Vol] 49 U/L Invalid Interpretation Code 40 - 135 U/L AO ADM SS ALT With P-5'-P [Catalytic activity/Vol] 30 U/L Invalid Interpretation Code 14 - 59 U/L AO ADM SS AST With P-5'-P [Catalytic activity/Vol] 19 U/L Invalid Interpretation Code 10 - 40 U/L AO ADM SS Bilirubin [Mass/Vol] 0.5 mg/dL Invalid Interpretation Code 0.2 - 1.0 mg/dL AO ADM SS Calcium [Mass/Vol] 9.9 mg/dL Invalid Interpretation Code 8.4 - 10.2 mg/dL AO ADM SS Chloride [Moles/Vol] 106 mmol/L Invalid Interpretation Code 98 - 107 mmol/L AO ADM SS CO2 [Moles/Vol] 28 mmol/L Invalid Interpretation Code 23 - 31 mmol/L AO ADM SS Creatinine [Mass/Vol] 1.14 mg/dL Invalid Interpretation Code 0.55 - 1.02 mg/dL AO ADM SS Electrolyte Balance 10.0 mEq/L Invalid Interpretation Code 4.0 - 15.0 mEq/L AO ADM SS Globulin 2.8 G/dL Invalid Interpretation Code AO ADM SS Glucose [Mass/Vol] 88 mg/dL Invalid Interpretation Code 83 - 110 mg/dL AO ADM SS Potassium [Moles/Vol] 4.7 mmol/L Invalid Interpretation Code 3.5 - 5.1 mmol/L AO ADM SS Protein [Mass/Vol] 7.1 G/dL Invalid Interpretation Code 6.4 - 8.2 G/dL AO ADM SS Sodium [Moles/Vol] 144 mmol/L Invalid Interpretation Code 136 - 145 mmol/L AO ADM SS TSH Qn 2.99 m[IU]/L Invalid Interpretation Code 0.36 - 3.74 mcIU/mL AO ADM SS Urea nitrogen [Mass/Vol] 27 mg/dL Invalid Interpretation Code 7 - 18 mg/dL AO ADM SS Urea nitrogen/Creatinine [Mass ratio] 24 ratio Invalid Interpretation Code 7 - 27 ratio AO ADM SS Vit. D 25-Hydroxy 100.2 ng/mL Invalid Interpretation Code AO ADM SS LABORATORYOrdered By: SYSTEM SYSTEM on 05-05-2021 Cobalamin (Vitamin B12) [Mass/Vol] 391 pg/mL Invalid Interpretation Code 211 - 911 pg/mL AH ADM SS GFR 57 ml/min/1.73sqm Invalid Interpretation Code AO Chemistry S GFR Non- 47 ml/min/1.73sqm Invalid Interpretation Code AO Chemistry S Basophil percentageon 2020 Bilirubin [Mass/Vol] 0.30 mg/dL 0.20-1.[address] [facility] Work Phone: Comment on above: For patients on eltr ombopag therapy, use of Dimension [place] TBIL is not recommended. Chloride [Moles/Vol] 112 mmol/L 98-[address] [facility] Work Phone: Glucose [Mass/Vol] 102 mg/dL 74-106 [facility] Work Phone: Comment on above: Fasting Glucose resu lt from 100 to 125 mg/dL suggests IMPAIRED HOMEOSTASIS per A.D.A. criteria.Please note revised GLUCOSE reference range effective 2017. Potassium [Moles/Vol] 3.8 mmol/L 3.5-5.1 [facility] Work Phone: Protein [Mass/Vol] 6.2 g/dL 6.4-8.2 [facility] Work Phone: Sodium [Moles/Vol] 143 mmol/L 136-145 [facility] Work Phone: WBC (Bld) [#/Vol] 7.7 10*3/uL 4.4-11.0 [facility] Work Phone: Blood erythrocytes count (nu mber/volume)on 03-17-2021 RBC (Bld) [#/Vol] 3.80 10*6/uL 4.2-5.4 [facility] Work Phone: Blood hemoglobin measurement (mass/volume)on 03-17-2021 Hemoglobin (Bld) [Mass/Vol] 11.5 g/dL 12.0-15.0 [facility] Work Phone: Blood platelet mean volumeon 03-17-2021 Platelet mean volume (Bld) [Entitic vol] 10.2 fL 6.2-12.0 [facility] Work Phone: Determination of erythrocyte mean corpuscular volume (MCV)on 03-17-2021 MCV (RBC) [Entitic vol] 93.7 fL 81-99 [facility] Work Phone: Hematocrit Auto (Bld) [Volum e fraction]on 03-17-2021 Hematocrit (Bld) [Volume fraction] 35.6 % 37-47 [facility] Work Phone: Laboratory - Chemistry and C hemistry - challengeon 03-17-2021 ALP [Catalytic activity/Vol] 39 U/L 45-117 [facility] Work Phone: ALT [Catalytic activity/Vol] 44 U/L 13-56 [facility] Work Phone: CO2 [Moles/Vol] 22.0 mmol/L 21.0-32.0 [facility] Work Phone: Globulin (S) [Mass/Vol] 3.0 g/dL 2.2-4.2 [facility] Work Phone: Urea nitrogen/Creatinine [Mass ratio] 16.7 mg/mg 10-20 [facility] Work Phone: Laboratory - Hematology and Cell countson 03-17-2021 Erythrocyte distribution width (RBC) [Entitic vol] 43.6 fL 35.1-43.9 [facility] Work Phone: Erythrocyte distribution width (RBC) [Ratio] 12.8 % 11.6-14.6 [facility] Work Phone: MCH (RBC) [Entitic mass] 30.3 pg 27.0-32.0 [facility] Work Phone: MCHC Auto (RBC) [Mass/Vol]on 03-17-2021 MCHC (RBC) [Mass/Vol] 32.3 g/dL 32-36 [facility] Work Phone: No Panel Informationon 03-17 Estimated Creatinine Clearance Calc 32.39 ml/min [facility] Work Phone: Estimated GFR (MDRD) Amer 54 mL/min >60 [facility] Work Phone: Comment on above: GFR Calc Estimated GFR (MDRD) Non-Af Amer 44 mL/min >60 [facility] Work Phone: Comment on above: Non- GFR Calc Platelets bldon 03-17-2021 Platelets (Bld) [#/Vol] 323 10*3/uL 150-450 [facility] Work Phone: Serum or plasma albumin sergio urement (mass/volume)on 03-17-2021 Albumin [Mass/Vol] 3.2 g/dL 3.2-5.0 [facility] Work Phone: Serum or plasma albumin/glob ulin mass ratioon 03-17-2021 Albumin/Globulin [Mass ratio] 1.1 {ratio} 0.9-2.4 [facility] Work Phone: Serum or plasma calcium sergio urement (mass/volume)on 03-17-2021 Calcium [Mass/Vol] 9.5 mg/dL 8.5-10.1 [facility] Work Phone: Serum or plasma creatinine m easurement (mass/volume)on 03-17-2021 Creatinine [Mass/Vol] 1.26 mg/dL 0.55-1.02 [facility] Work Phone: Comment on above: The validity of the calculated GFR & GFRAA in patients over 70 years has not been determined. Clinical correlation is essential. Serum or plasma urea nitroge n measurement (mass/volume)on 03-17-2021 Urea nitrogen [Mass/Vol] 21 mg/dL 7-18 [facility] Work Phone: Thin prep Papanicolaou smear with manual screeningon 03-17-2021 Thin prep Papanicolaou smear with manual screening 33 U/L 15-37 [facility] Work Phone: Thin prep Papanicolaou smear with manual screening 9 5-15 [facility] Work Phone: Vital Signs Date Time Vital Sign Value Performing Clinician Facility 2024 08:23-0400 Body height 157.[address] Keyonna Camarena DO Work Phone: [facility] 2024 08:23-0400 Body mass index (BMI) [Ratio] 25.9 kg/m2 Dr. Keyonna Camarena DO Work Phone: [facility] 2024 08:23-0400 Body weight 64.[address] Keyonna Camarena DO Work Phone: [facility] 2024 08:23-0400 Diastolic blood pressure 68 mm[Hg] Dr. Keyonna Camarena DO Work Phone: [facility] 2024 08:23-0400 Heart rate 52 /min Dr. Keyonna Camarena DO Work Phone: [facility] 2024 08:23-0400 Respiratory rate 18 /min Dr. Keyonna Camarena DO Work Phone: [facility] 2024 08:23-0400 SaO2% (BldA) [Mass fraction] 94 % Dr. Keyonna Camarena DO Work Phone: [facility] 2024 08:23-0400 Systolic blood pressure 132 mm[Hg] Dr. Keyonna Camarena DO Work Phone: [facility] 03-15-2024 12:03-0500 Blood Pressure Method KEYONNA CAMARENA DO [facility] 03-15-2024 12:03-0500 Body temperature 97.34 [degF] KEYONNA CAMARENA DO [facility] 03-15-2024 12:03-0500 Diastolic Blood Pressure Non-Invasive 71 mm[Hg] KEYONNA CAMARENA DO [facility] 03-15-2024 12:03-0500 Heart rate 55 /min KEYONNA CAMARENA DO [facility] 03-15-2024 12:03-0500 Reason For Taking VItal Signs KEYONNA CAMARENA DO [facility] 03-15-2024 12:03-0500 Respiratory rate 16 /min KEYONNA CAMARENA DO [facility] 03-15-2024 12:03-0500 Systolic Blood Pressure Non-Invasive 144 mm[Hg] KEYONNA CAMARENA DO [facility] 09-09-2023 12:11-0400 Blood Pressure Cuff Size KEYONNA CAMARENA DO [facility] 09-09-2023 12:11-0400 Blood Pressure Location KEYONNA CAMARENA DO [facility] 09-09-2023 12:11-0400 Blood Pressure Method KEYONNA CAMARENA DO [facility] 09-09-2023 12:11-0400 Body temperature 97.7 [degF] KEYONNA CAMARENA DO [facility] 09-09-2023 12:11-0400 Diastolic Blood Pressure Non-Invasive 76 mm[Hg] KEYONNA CAMARENA DO [facility] 09-09-2023 12:11-0400 Heart rate 54 /min KEYONNA CAMARENA DO [facility] 09-09-2023 12:11-0400 Systolic Blood Pressure Non-Invasive 131 mm[Hg] KEYONNA CAMARENA DO [facility] 03-01-2023 11:33-0500 Body temperature 97.7 [degF] KEYONNA CAMARENA DO [facility] 03-01-2023 11:33-0500 Diastolic Blood Pressure Non-Invasive 75 mm[Hg] KEYONNA CAMARENA DO [facility] 03-01-2023 11:33-0500 Heart rate 50 /min KEYONNA CAMARENA DO [facility] 03-01-2023 11:33-0500 Respiratory rate 16 /min KEYONNA CAMARENA DO [facility] 03-01-2023 11:33-0500 Systolic Blood Pressure Non-Invasive 154 mm[Hg] KEYONNA CAMARENA DO [facility] 04-22-2022 10:04-0500 Body height 157.[address] Keyonna Camarena Work Phone: [facility] 04-22-2022 10:04-0500 Body mass index (BMI) [Ratio] 25.6 kg/m2 Dr. Keyonna Camarena Work Phone: [facility] 04-22-2022 10:04-0500 Body weight 63.[address] Keyonna Camarena Work Phone: [facility] 04-22-2022 10:04-0500 Diastolic blood pressure 73 mm[Hg] Dr. Keyonna Camarena Work Phone: [facility] 04-22-2022 10:04-0500 Heart rate 56 /min Dr. Keyonna Camarena Work Phone: [facility] 04-22-2022 10:04-0500 Respiratory rate 14 /min Dr. Keyonna Camarena Work Phone: [facility] 04-22-2022 10:04-0500 Systolic blood pressure 140 mm[Hg] Dr. Keyonna Camarena Work Phone: [facility] 07-22-2021 08:37-0400 Body height 157.[address] Keyonna Camarena Work Phone: [facility] Work Phone: 07-22-2021 08:37-0400 Body mass index (BMI) [Ratio] 26.6 kg/m2 Dr. Keyonna Camarena Work Phone: [facility] Work Phone: 07-22-2021 08:37-0400 Body weight 66.[address] Keyonna Camarena Work Phone: [facility] Work Phone: 07-22-2021 08:37-0400 Diastolic blood pressure 75 mm[Hg] Dr. Keyonna Camarena Work Phone: [facility] Work Phone: 07-22-2021 08:37-0400 Heart rate 60 /min Dr. Keyonna Camarena Work Phone: [facility] Work Phone: 07-22-2021 08:37-0400 Respiratory rate 18 /min Dr. Keyonna Camarena Work Phone: [facility] Work Phone: 07-22-2021 08:37-0400 SaO2% (BldA) [Mass fraction] 96 % Dr. Keyonna Camarena Work Phone: [facility] Work Phone: 07-22-2021 08:37-0400 Systolic blood pressure 148 mm[Hg] Dr. Keyonna Camarena Work Phone: [facility] Work Phone: 07-10-2021 00:18-0400 Body weight 64.[address] Keyonna Camarena Work Phone: [facility] Work Phone: 06-26-2021 13:09-0400 Body height 157.[address] Keyonna Camarena Work Phone: [facility] Work Phone: 06-26-2021 13:09-0400 Body weight 64.[address] Keyonna Camarena Work Phone: [facility] Work Phone: 05-29-2021 06:31-0500 Body weight 64.[address] Keyonna Camarena Work Phone: [facility] Work Phone: 04-28-2021 06:44-0500 Body weight 64.[address] Keyonna Camarena Work Phone: [facility] Work Phone: 04-17-2021 13:11-0500 Body mass index (BMI) [Ratio] 26.3 kg/m2 Dr. Keyonna Camarena Work Phone: [facility] Work Phone: 04-17-2021 13:11-0500 Body weight 65.[address] Keyonna Camarena Work Phone: [facility] Work Phone: 04-17-2021 13:11-0500 Diastolic blood pressure 72 mm[Hg] Dr. Keyonna Camarena Work Phone: [facility] Work Phone: 04-17-2021 13:11-0500 Heart rate 52 /min Dr. Keyonna Camarena Work Phone: [facility] Work Phone: 04-17-2021 13:11-0500 Respiratory rate 14 /min Dr. Keyonna Camarena Work Phone: [facility] Work Phone: 04-17-2021 13:11-0500 SaO2% (BldA) [Mass fraction] 97 % Dr. Keyonna Camarena Work Phone: [facility] Work Phone: 04-17-2021 13:11-0500 Systolic blood pressure 140 mm[Hg] Dr. Keyonna Camarena Work Phone: [facility] Work Phone: 03-30-2021 13:23-0500 Body mass index (BMI) [Ratio] 26.2 kg/m2 Dr. Keyonna Camarena Work Phone: [facility] Work Phone: 03-30-2021 13:23-0500 Body temperature 98.1 [degF] Dr. Keyonna Camarena Work Phone: [facility] Work Phone: 03-30-2021 13:23-0500 Body weight 64.[address] Keyonna Camarena Work Phone: [facility] Work Phone: 03-30-2021 13:23-0500 Diastolic blood pressure 81 mm[Hg] Dr. Keyonna Camarena Work Phone: [facility] Work Phone: 03-30-2021 13:23-0500 Heart rate 72 /min Dr. Keyonna Camarena Work Phone: [facility] Work Phone: 03-30-2021 13:23-0500 Respiratory rate 16 /min Dr. Keyonna Camarena Work Phone: [facility] Work Phone: 03-30-2021 13:23-0500 SaO2% (BldA) [Mass fraction] 95 % Dr. Keyonna Camarena Work Phone: [facility] Work Phone: 03-30-2021 13:23-0500 Systolic blood pressure 151 mm[Hg] Dr. Keyonna Camarena Work Phone: [facility] Work Phone: 03-17-2021 06:48-0500 Body temperature 98.1 [degF] Dr. Keyonna Camarena Work Phone: [facility] Work Phone: 03-17-2021 06:48-0500 Diastolic blood pressure 56 mm[Hg] Dr. Keyonna Camarena Work Phone: [facility] Work Phone: 03-17-2021 06:48-0500 Heart rate 56 /min Dr. Keyonna Camarena Work Phone: [facility] Work Phone: 03-17-2021 06:48-0500 Respiratory rate 12 /min Dr. Keyonna Camarena Work Phone: [facility] Work Phone: 03-17-2021 06:48-0500 SaO2% (BldA) [Mass fraction] 98 % Dr. Keyonna Camarena Work Phone: [facility] Work Phone: 03-17-2021 06:48-0500 Systolic blood pressure 137 mm[Hg] Dr. Keyonna Camarena Work Phone: [facility] Work Phone: 03-16-2021 12:50-0500 Body mass index (BMI) [Ratio] 25.9 kg/m2 Dr. Keyonna Camarena Work Phone: [facility] Work Phone: 03-16-2021 12:50-0500 Body weight 64.[address] Keyonna Camarena Work Phone: [facility] Work Phone: Encounters Encounter Date Encounter Type Care Provider Facility Start: 11-13-2024 ambulatory Julia Gutierrez MUNICIPAL CLERK Facili ty:[facility] Start: 2024 ambulatory Julia Gutierrez NP Facili ty:[facility] Start: 2024 End: 2024 Patient encounter procedure Julia MEDINA -[facility] Work Phone: Start: 2024 End: [address] Keyonna Camarena DO Work Phone: -[facility] Start: 10-30-2024 End: 10-30-2024 ambulatory KEYONNA CAMARENA DO Facility:[facility] Start: 10-30-2024 End: 10-30-2024 Patient encounter procedure KEYONNA CAMARENA DO [facility] Start: 10-24-2024 End: 10-24-2024 ambulatory KEYONNA CAMARENA DO Facility:[facility] Start: 10-24-2024 End: 10-24-2024 Patient encounter procedure KEYONNA CAMARENA DO [facility] Start: 09-17-2024 End: 09-17-2024 ambulatory KEYONNA CAMARENA DO Facility:[facility] Start: 09-17-2024 End: 09-17-2024 SAME DAY STAY KEYONNA CAMARENA DO [facility] Start: 06-26-2024 End: 06-30-2024 ambulatory KEYONNA CAMARENA DO Facility:[facility] Start: 06-22-2024 End: 06-22-2024 ambulatory KEYONNA CAMARENA DO Facility:[facility] Start: 06-07-2024 End: 06-07-2024 ambulatory Keyonna Camarena Facility:[facility] Start: 03-16-2024 End: 03-16-2024 ambulatory KEYONNA OSHEAY Facility:[facility] Start: 03-16-2024 End: 03-16-2024 Patient encounter procedure KEYONNA CAMARENA DO [facility] Start: 03-15-2024 End: 03-15-2024 ambulatory KEYONNA CHAD DO Facility:[facility] Start: 03-15-2024 End: 03-15-2024 SAME DAY STAY KEYONNA CHAD DO [facility] Start: 03-02-2024 End: 03-02-2024 ambulatory Keyonna Osheay Facility:[facility] Start: 02-20-2024 End: 02-20-2024 ambulatory KEYONNA OSHEAY DO Facility:[facility] Start: 02-20-2024 End: 02-20-2024 Patient encounter procedure KEYONNA CHAD DO [facility] Start: 02-20-2024 End: 02-20-2024 Well adult monitoring check done KEYONNA CHAD DO [facility] Start: 01-06-2024 End: 01-06-2024 ambulatory MARILY ROSALES MD Facility:A Start: 01-06-2024 End: 01-06-2024 Patient encounter procedure MARILY ROSALES MD [facility] Start: 01-02-2024 ambulatory Rajan H Roof MUNICIPAL CLERK Facility :[facility] Start: 01-02-2024 End: 01-02-2024 ambulatory Rajan H Roof MUNICIPAL CLERK Facility:[facility] Start: 12-08-2023 End: 12-08-2023 ambulatory Rajan H Roof MUNICIPAL CLERK Facility:[facility] Start: 09-20-2023 End: 09-20-2023 ambulatory KEYONNA OSHEAY DO Facility:[facility] Start: 09-09-2023 End: 09-09-2023 ambulatory KEYONNA OSHEAY DO Facility:[facility] Start: 09-09-2023 End: 09-09-2023 SAME DAY STAY KEYONNA OSHEAY DO [facility] Start: 06-16-2023 End: 06-16-2023 ambulatory KEYONNA OSHEAY DO Facility:[facility] Start: 06-16-2023 End: 06-16-2023 Patient encounter procedure KEYONNA CAMARENA DO [facility] Start: 04-19-2023 End: 04-23-2023 ambulatory KEYONNA CAMARENA DO Facility:[facility] Start: 04-19-2023 End: 04-23-2023 Outreach Lab KEYONNA CAMARENA DO [facility] Start: 03-14-2023 End: 03-14-2023 ambulatory KEYONNA CAMARENA DO Facility:[facility] Start: 03-14-2023 End: 03-14-2023 Patient encounter procedure KEYONNA Velasco CHDA DO [facility] Start: 03-01-2023 End: 03-01-2023 ambulatory KEYONNA CAMARENA DO Facility:[facility] Start: 03-01-2023 End: 03-01-2023 SAME DAY STAY KEYONNA Velasco CHAD DO [facility] Start: 12-14-2022 End: 12-14-2022 ambulatory KEYONNA CAMARENA DO Facility:[facility] Start: 12-14-2022 End: 12-14-2022 Patient encounter procedure KEYONNA Velasco CHAD DO [facility] Start: 12-14-2022 End: 12-14-2022 Well adult monitoring check done KEYONNA Velasco CHAD DO [facility] Start: 08-02-2022 End: 09-08-2022 Admission to same day surgery center DR SONIA MONGE MD [facility] Start: 06-22-2022 End: 06-22-[address] SONIA MONGE MD [facility] Start: 04-27-2022 End: 06-11-2022 Physical therapy management BRYANT RIOS JR, MD [facility] Start: 04-22-2022 End: 04-22-[address] Keyonna Camarena Work Phone: [facility] Work Phone: Start: 04-22-2022 End: 04-22-[address] Keyonna Camarena Work Phone: [facility] Start: 02-11-2022 End: 02-11-2022 Patient encounter procedure KEYONNA CAMARENA DO [facility] Start: 02-11-2022 End: 02-11-2022 Well adult monitoring check done KEYONNA CAMARENA DO [facility] Start: 09-22-2021 End: 11-10-2021 Physical therapy management RADHA DC DO [facility] Start: 07-22-2021 End: 07-22-[address] Keyonna Camarena Work Phone: [facility] Start: 07-20-2021 End: 08-08-[address] Keyonna Camarena Work Phone: [facility] Start: 07-03-2021 End: 07-09-[address] Keyonna Camarena Work Phone: [facility] Start: 06-08-2021 End: 06-08-[address] Keyonna Camarena Work Phone: [facility] Start: 05-15-2021 End: 05-15-[address] Keyonna Camarena Work Phone: [facility] Start: 05-11-2021 End: 05-11-[address] Keyonna Camarena Work Phone: [facility] Start: 05-05-2021 End: 05-05-2021 Patient encounter procedure KEYONNA CAMARENA DO [facility] Start: 04-17-2021 End: 04-17-[address] Keyonna Camarena Work Phone: [facility] Start: 03-30-[address] Keyonna Camarena Work Phone: [facility] Start: 03-17-2021 Non-patient / Non-visit Dr. Jorge Camarena Work Phone: [facility] Start: 03-16-2021 End: 03-17-2021 Evaluation and management of inpatient Dr. Keyonna Camarena Work Phone: [facility]Progressive Care Unit Start: 03-16-2021 Non-patient / Non-visit Dr. Jorge Camarena Work Phone: [facility] Start: 03-13-2021 Non-patient / Non-visit Dr. Jorge Camarena Work Phone: [facility] Start: 03-13-[address] Keyonna Camarena Work Phone: [facility] Start: 03-12-2021 End: 03-12-2021 Patient encounter procedure KEYONNA CAMARENA DO [facility] Procedures Date Procedure Procedure Detail Performing Clinician Start: 05-12-2022 Insertion of hip prosthesis KEYONNA CAMARENA DO Comment on above: left hip Start: 05-15-2021 MRI of joint of lowe r extremity Dr. Keyonna Camarena Work Phone: Start: 03-16-2021 History of placement of stent for coronary artery disease History of coronary artery stent placement Dr. Keyonna Camarena Work Phone: Comment on above: [id number] D1 w/ 2 .25 x 18 mm Orsiro Stent 03/16/2021 Start: 03-16-2021 Drug-eluting coronar y artery stent (physical object) KEYONNA CAMARENA DO Comment on above: Dr. Buenrostro @ [facility] (Bio tronik) Start: 08-19-2017 Bone density scan JORGEILANA MARS HCAD [facility] Comment on above: Osteoporosis [facility] Start: 08-19-2017 Screening mammography Roxy BARTONLAY DO Comment on above: BI-RADS 2, Benign, n o change follow up 1 year Start: 02-03-2015 Colonoscopy KEYONNA MORENO DO Comment on above: Dr. Lanza [facility] Gina mcgarry follow up 10 years Start: 04-11-1999 Lobectomy of thyroid gland KEYONNA CAMARENA Abdominal hysterectomy PILO JERAD CHAD DO Appendectomy KEYONNA CAMARENA DO Bilateral salpingect luiz with oophorectomy KEYONNA CAMARENA DO Cystopexy KEYONNA CAMARENA DO Tonsillectomy and adenoidectomy KEYONNA CAMARENA DO Plan of Treatment Date Care Activity Detail Author Start: 2024 Evaluation of diagno stic study results [facility] Basic metabolic 2008 panel with ionized calcium - Serum or Plasma [facility] spital Catheterization of left heart [facility] CBC W Auto Different ial panel - Blood [facility] Patient referral [facility] Work Phone: XR Chest PA and Lateral [facility] Immunizations Immunization Date Immunization Notes Care Provider John danyel 12-25-2020 pneumococcal polysaccharide vaccine, 23 valent; Translations: [Pneumovax 23] KEYONNA CAMARENA DO [facility] 12-22-[address] Keyonna Camarena Work Phone: [facility] 06-25-2020 COVID-19, mRNA, LNP- S, PF, 100 mcg/ 0.5 mL dose; Translations: [Moderna COVID-19 Vaccine] KEYONNA CAMARENA DO [facility] 05-28-2020 COVID-19, mRNA, LNP- S, PF, 100 mcg/ 0.5 mL dose; Translations: [Moderna COVID-19 Vaccine] KEYONNA CAMARENA DO [facility] 10-10-2018 tetanus toxoid, redu karie diphtheria toxoid, and acellular pertussis vaccine, adsorbed; Translations: [Boostrix (Tdap)] KEYONNA CAMARENA DO [facility] Comment on above: Result Comment: [id number] 01-20-2016 pneumococcal conjuga te vaccine, 13 valent KEYONNA CAMARENA DO [facility] 12-26-2015 influenza virus vacc ine, unspecified formulation KEYONNA CAMARENA DO [facility] 04-11-2005 pneumococcal polysaccharide vaccine, 23 valent KEYONNASUYAPA CAMARENA DO [facility] Payers Date Payer Category Payer Self-pay [id number] 2022 Medicare [id number] 2022 Unknown [id number] 2019 Private Health Insurance [facility] [id number] 2018 Medicare [id number] 1950 Unknown [id number] 2.16.8 [id number] 1950 Unknown [id number] 2.16.8 40.1.566752.3.579.2.627 1950 Unknown [id number] 2.16.8 40.1.156767.3.579.2. 1949 Unknown [id number] 2.16.8 40.1.690034.3.579.2.627 1949 Unknown [id number] 2.16.8 40.1.715210.3.579.2.627 1949 Unknown [id number] 2.16.8 40.1.760824.3.579.2.627 1949 Unknown [id number] 2.16.8 40.1.610910.3.579.2.627 1949 Unknown [id number] 2.16.8 40.1.285462.3.579.2.627 1949 Unknown [id number] 2.16. 840.1.636425.3.579.2.627 1949 Unknown [id number] 2.16. 840.1.239751.3.579.2.627 1949 Unknown [id number] 2.16. 840.1.431241.3.579.2.627 1949 Unknown [id number] 2.16.8 40.1.585436.3.579.2.627 1949 Unknown [id number] 2.16.8 40.1.979218.3.579.2.627 1949 Unknown [id number] 2.16.8 40.1.059928.3.579.2.627 1949 Unknown [id number] 2.16.8 40.1.938867.3.579.2.627 1949 Unknown [id number] 2.16.8 40.1.927946.3.579.2.627 Unknown [id number] 2.16.8 40.1.705531.3.579.2.462 Unknown [id number] 2.16.8 40.1.454178.3.579.2.462 Unknown [id number] 2.16.8 40.1.329887.3.579.2.462 Unknown [id number] 2.16.8 40.1.392043.3.579.2.462 Unknown [id number] 2.16.8 40.1.399447.3.579.2.462 Unknown [id number] 2.16.8 40.1.284206.3.579.2.462 Unknown [id number] 2.16.8 40.1.892633.3.579.2.462 Unknown [id number] 2.16.8 40.1.765561.3.579.2.462 Social History Date Type Detail Facility Start: 11-07-2020 End: 04-21-2023 Never smoked tobacco (finding) [facility] Comment on above: no smoke exposure Start: 1950 Sex Assigned At Female A [facility] Start: 04-17-2021 End: 04-22-2022 Tobacco smoking status NHIS Unknown if ever smoked [facility] Sexual Orientation Genoveva Vale ospital Genoveva Myers Start: 10-04-2018 Sex Female (finding) [facility] Medical Equipment Procedure Code Equipment Code Equipment Origin al Text Equipment Identifier Dates FDA Start: 11-15-2018 FDA Start: 11-15-2018 FDA Start: 11-15-2018 FDA Start: 11-15-2018 FDA Start: 11-15-2018 FDA Start: 11-15-2018 FDA Start: 11-15-2018 FDA Start: 11-15-2018 ([id number]) Drug-eluting cor onary artery stent, bioabsorbable-polymer- coated ([id number] FDA Start: 03-16-2021 Hip Percutaneous Pinning Unknown 8/7/19 Unknown Unknown FDA Start: 11-15-2018 Hip Percutaneous Pinning Unknown 8/7/19 Unknown Unknown FDA Start: 11-15-2018 Hip Percutaneous Pinning Unknown 8/7/19 Unknown Unknown FDA Start: 11-15-2018 Hip Percutaneous Pinning Unknown 8/7/19 Unknown Unknown FDA Start: 11-15-2018 Hip Percutaneous Pinning Unknown 8/7/19 Unknown Unknown FDA Start: 11-15-2018 Hip Percutaneous Pinning Unknown 8/7/19 Unknown Unknown FDA Start: 11-15-2018 Hip Percutaneous Pinning Unknown 8/7/19 Unknown Unknown FDA Start: 11-15-2018 Hip Percutaneous Pinning Unknown 8/7/19 Unknown Unknown FDA Start: 11-15-2018 Hip Percutaneous Pinning Unknown 8/7/19 Unknown Unknown FDA Start: 11-15-2018 Hip Percutaneous Pinning Unknown 8/7/19 Unknown Unknown FDA Start: 11-15-2018 Hip Percutaneous Pinning Unknown 8/7/19 Unknown Unknown FDA Start: 11-15-2018 Hip Percutaneous Pinning Unknown 8/7/19 Unknown Unknown FDA Start: 11-15-2018 Hip Percutaneous Pinning Unknown 8/7/19 Unknown Unknown FDA Start: 11-15-2018 Hip Percutaneous Pinning Unknown 8/7/19 Unknown Unknown FDA Start: 11-15-2018 Hip Percutaneous Pinning Unknown 8/7/19 Unknown Unknown FDA Start: 11-15-2018 Hip Percutaneous Pinning Unknown 8/7/19 Unknown Unknown FDA Start: 11-15-2018 Hip Percutaneous Pinning Unknown 8/7/19 Unknown Unknown FDA Start: 11-15-2018 Hip Percutaneous Pinning Unknown 8/7/19 Unknown Unknown FDA Start: 11-15-2018 Hip Percutaneous Pinning Unknown 8/7/19 Unknown Unknown FDA Start: 11-15-2018 Hip Percutaneous Pinning Unknown 8/7/19 Unknown Unknown FDA Start: 11-15-2018 Hip Percutaneous Pinning Unknown 8/7/19 Unknown Unknown FDA Start: 11-15-2018 Hip Percutaneous Pinning Unknown 8/7/19 Unknown Unknown FDA Start: 11-15-2018 Hip Percutaneous Pinning Unknown 8/7/19 Unknown Unknown FDA Start: 11-15-2018 Hip Percutaneous Pinning Unknown 8/7/19 Unknown Unknown FDA Start: 11-15-2018 Hip Percutaneous Pinning Unknown 8/7/19 Unknown Unknown FDA Start: 11-15-2018 Hip Percutaneous Pinning Unknown 8/7/19 Unknown Unknown FDA Start: 11-15-2018 Hip Percutaneous Pinning Unknown 8/7/19 Unknown Unknown FDA Start: 11-15-2018 Hip Percutaneous Pinning Unknown 8/7/19 Unknown Unknown FDA Start: 11-15-2018 Hip Percutaneous Pinning Unknown 8/7/19 Unknown Unknown FDA Start: 11-15-2018 Hip Percutaneous Pinning Unknown 8/7/19 Unknown Unknown FDA Start: 11-15-2018 Hip Percutaneous Pinning Unknown 8/7/19 Unknown Unknown FDA Start: 11-15-2018 Hip Percutaneous Pinning Unknown 8/7/19 Unknown Unknown FDA Start: 11-15-2018 Hip Percutaneous Pinning Unknown 8/7/19 Unknown Unknown FDA Start: 11-15-2018 Hip Percutaneous Pinning Unknown 8/7/19 Unknown Unknown FDA Start: 11-15-2018 Hip Percutaneous Pinning Unknown 8/7/19 Unknown Unknown FDA Start: 11-15-2018 Hip Percutaneous Pinning Unknown 8/7/19 Unknown Unknown FDA Start: 11-15-2018 Hip Percutaneous Pinning Unknown 8/7/19 Unknown Unknown FDA Start: 11-15-2018 Hip Percutaneous Pinning Unknown 8/7/19 Unknown Unknown FDA Start: 11-15-2018 Hip Percutaneous Pinning Unknown 8/7/19 Unknown Unknown FDA Start: 11-15-2018 Hip Percutaneous Pinning Unknown 8/7/19 Unknown Unknown FDA Start: 11-15-2018 Hip Percutaneous Pinning Unknown 8/7/19 Unknown Unknown FDA Start: 11-15-2018 Hip Percutaneous Pinning Unknown 8/7/19 Unknown Unknown FDA Start: 11-15-2018 Hip Percutaneous Pinning Unknown 8/7/19 Unknown Unknown FDA Start: 11-15-2018 Hip Percutaneous Pinning Unknown 8/7/19 Unknown Unknown FDA Start: 11-15-2018 Hip Percutaneous Pinning Unknown 8/7/19 Unknown Unknown FDA Start: 11-15-2018 Hip Percutaneous Pinning Unknown 8/7/19 Unknown Unknown FDA Start: 11-15-2018 Hip Percutaneous Pinning Unknown 8/7/19 Unknown Unknown FDA Start: 11-15-2018 Hip Percutaneous Pinning Unknown 8/7/19 Unknown Unknown FDA Start: 11-15-2018 Hip Percutaneous Pinning Unknown 8/7/19 Unknown Unknown FDA Start: 11-15-2018 Hip Percutaneous Pinning Unknown 8/7/19 Unknown Unknown FDA Start: 11-15-2018 Hip Percutaneous Pinning Unknown 8/7/19 Unknown Unknown FDA Start: 11-15-2018 Hip Percutaneous Pinning Unknown 8/7/19 Unknown Unknown FDA Start: 11-15-2018 Hip Percutaneous Pinning Unknown 8/7/19 Unknown Unknown FDA Start: 11-15-2018 Hip Percutaneous Pinning Unknown 8/7/19 Unknown Unknown FDA Start: 11-15-2018 Hip Percutaneous Pinning Unknown 8/7/19 Unknown Unknown FDA Start: 11-15-2018 Hip Percutaneous Pinning Unknown 8/7/19 Unknown Unknown FDA Start: 11-15-2018 Hip Percutaneous Pinning Unknown 8/7/19 Unknown Unknown FDA Start: 11-15-2018 Hip Percutaneous Pinning Unknown 8/7/19 Unknown Unknown FDA Start: 11-15-2018 Hip Percutaneous Pinning Unknown 8/7/19 Unknown Unknown FDA Start: 11-15-2018 Hip Percutaneous Pinning Unknown 8/7/19 Unknown Unknown FDA Start: 11-15-2018 Hip Percutaneous Pinning Unknown 8/7/19 Unknown Unknown FDA Start: 11-15-2018 Hip Percutaneous Pinning Unknown 8/7/19 Unknown Unknown FDA Start: 11-15-2018 Hip Percutaneous Pinning Unknown 8/7/19 Unknown Unknown FDA Start: 11-15-2018 Hip Percutaneous Pinning Unknown 8/7/19 Unknown Unknown FDA Start: 11-15-2018 Hip Percutaneous Pinning Unknown 8/7/19 Unknown Unknown FDA Start: 11-15-2018 Hip Percutaneous Pinning Unknown 11/15/18 Unknown Unknown FDA Start: 11-15-2018 Hip Percutaneous Pinning Unknown 11/15/18 Unknown Unknown FDA Start: 11-15-2018 Hip Percutaneous Pinning Unknown 11/15/18 Unknown Unknown FDA Start: 11-15-2018 Hip Percutaneous Pinning Unknown 11/15/18 Unknown Unknown FDA Start: 11-15-2018 Hip Percutaneous Pinning Unknown 11/15/18 Unknown Unknown FDA Start: 11-15-2018 Hip Percutaneous Pinning Unknown 11/15/18 Unknown Unknown FDA Start: 11-15-2018 Hip Percutaneous Pinning Unknown 11/15/18 Unknown Unknown FDA Start: 11-15-2018 Functional Status Date Assessment Result Facility 03-17-2021 [facility] status [facility] Work Phone: Mental Status Date Assessment Result Facility 03-01-2023 Mental Status Orientation Oriented x 4 [facility] 03-17-2021 Cognitive function Voice/Name [facility] Work Phone: Clinical Notes 03-16-2021 to 09-17-2024 Note Date & Type Note Facility 09-17-2024 Nurse Progress note patient tolerated prolia injection without signs or symptoms of a reaction Digitally Signed by Rubina Chen RN on 09/17/2024 11:54 AM [facility] 03-16-2024 Note ORIGINAL EXAMINATION: BONE [id number]/6/2024 2:01 pm TECHNIQUE: Dual energy bone densitometry lumbar spine and right hip. COMPARISON: 03/12/2022 HISTORY: Reason for Exam: Osteoporosis Screening FINDINGS: T Score Left Femoral Neck: -2.4 Left Femoral Neck: 0.580 (g/cm2) T Score Left Hip: -1.4 Left Hip: 0.776 (g/cm2) T Score Lumbar Spine: -1.1 Lumbar Spine: 0.928 (g/cm2) COMMENTS: Lt hip replacement BMD Change from previous Hip: +8.9%, significant BMD Change from previous Lumbar Spine: +4.0%, significant FRAX score: Not calculated The OF f/k/a NOF recommends that FDA-approved medical therapies be considered in post-menopausal women and men age >/= 50 years with a: * Hip or vertebral fracture, or * T-score of /= 20% for major osteoporotic fractures or * >/= 3% for hip fractures All treatment decisions require clinical judgement and consideration of individual patient factors, including patient preferences, comorbidities, previous drug use, risk factors not captured in the FRAX registered model (e.g., frailty, falls, vitamin D deficiency, increased bone turnover, interval significant decline in bone density) and possible under- or over-estimation of fracture risk by FRAX. IMPRESSION: Osteopenia. Interpreted by: Inocencio Khalil MD Preliminary Report By: Inocencio Khalil MD Electronically signed By Inocencio Khalil MD Dictated Date: 03/16/2024 3:55:51 PM Prelim Date: 03/16/2024 3:58:23 PM Sign Date: 03/16/2024 3:58:23 PM Ordering Provider: KEYONNA CAMARENA [facility] 03-15-2024 Nurse Progress note Patient tolerated injection without signs or symptoms of reaction, patient left the unit without incident. Digitally Signed by Evelina Street RN on 03/15/2024 12:20 PM [facility] 01-06-2024 Note ORIGINAL EXAMINATION: NUCLEAR MEDICINE BRAIN FLOW SCAN 01/06/2024 1:55 pm COMPARISON: None. HISTORY: ORDERING SYSTEM PROVIDED HISTORY: Reason for Exam: Other abnormal involuntary movements TECHNIQUE: Following the intravenous administration of 5.5 millicuries I-123 ioflupane and the prior pretreatment with SSKI, SPECT imaging of the brain is performed. FINDINGS: There is asymmetrically decreased activity within right basal ganglia predominantly putamen on right side with questionable subtle decreased activity within right head of caudate nucleus. IMPRESSION: Asymmetrically decreased activity within right putamen, possibilities include Parkinsonian syndrome such as idiopathic Parkinson's disease, Lewy Body dementia, multiple system atrophy or progressive supranuclear palsy. I have personally reviewed the images of this examination and agree with the resident's findings and interpretation. Interpreted by: Sanket Galvin DO Preliminary Report By: Rian Stevenson Electronically signed By Sanket Galvin DO Dictated Date: 01/06/2024 2:18:28 PM Prelim Date: 01/06/2024 4:14:53 PM Sign Date: 01/06/2024 4:14:53 PM Ordering Provider: [facility] 03-16-2021 Evaluation note Diagnosis Onset Date History of coronary artery stent placement March 16, 2021 acute History of coronary artery stent placement March 16, 2021 acute Atherosclerotic heart disease of [place] coronary artery without angina pectoris chronic Essential hypertension chron ic Hyperlipidemia [facility] Work Phone: 1(153) 871-470812-06-2021 Evaluation note* Diagnosis Onset Date Resolution Status History of coronary artery stent placement March acute Atherosclerotic heart diseas e of [place] coronary artery without angina pectoris chronic Essential hypertension chron ic Hyperlipidemia chronic History of coronary artery stent placement March acute Atherosclerotic heart diseas e of [place] coronary artery without angina pectoris chronic Essential hypertension chron ic Hyperlipidemia [facility] Work Phone: 1(650) 577-766212-06-2021 Evaluation note* Diagnosis Onset Date Resolution Status Chest pain acute History of coronary artery stent placement March acute Essential hypertension chron ic Hyperlipidemia [facility] Work Phone: Evaluation + Plan note Future Appointments Appointment Date:05/05/2021 08:00:00 AM Scheduled Provider:KEYONNA CAMARENA DO Location:[facility] Appointment Type:PC OV Future Scheduled Tests Laboratory* Lipid Profile 12/19/20 * Vitamin D Level 12/19/20 * Vitamin D Level 12/26/20 * Complete Metabolic Panel 02/05/21 Radiology* XR Knee 3 Views Left 12/25/20 [facility] Evaluation + Plan note Future Appointments Appointment Date:08/04/2021 08:30:00 AM Scheduled Provider:KEYONNA CAMARENA DO Location:[facility] Appointment Type: OV Follow Up Future Scheduled Tests Laboratory* Lipid Profile 12/19/20 * Vitamin D Level 12/19/20 * Vitamin D Level 05/05/21 * Complete Metabolic Panel 02/05/21 Radiology* XR Knee 3 Views Left 12/25/20 [facility] Evaluation + Plan note Future Appointments Appointment Date:12/30/2021 09:00:00 AM Scheduled Provider:KEYONNA CAMARENA DO Location:[facility] Appointment Type:PC Wellness Medicare Future Scheduled Tests Laboratory* Lipid Profile 12/19/20 * Vitamin D Level 12/19/20 * Vitamin D Level 05/05/21 * Complete Metabolic Panel 02/05/21 Radiology* XR Knee 3 Views Left 12/25/20 [facility] Evaluation + Plan note Future Appointments Appointment Date:08/10/2022 08:00:00 AM Scheduled Provider:KEYONNA CAMARENA DO Location:[facility] Appointment Type: OV Future Scheduled Tests Laboratory* Vitamin D Level 05/05/21 * Complete Metabolic Panel 02/05/21 Radiology* MA Mammo Screening Bilateral w/ Josh 02/11/22 * BD Bone Density DEXA Axial Skeleton 02/11/22 [facility] Evaluation + Plan note Future Appointments Appointment Date:08/10/2022 08:00:00 AM Scheduled Provider:KEYONNA CAMARENA DO [facility] [facility] Appointment Type:[facility] Evaluation + Plan note Future Appointments Appointment Date:07/15/2022 08:00:00 AM Scheduled Provider:KEYONNA CAMARENA DO Location:[facility] Appointment Type: OV Pre Op Appointment Date:08/10/2022 08:00:00 AM Scheduled Provider:KEYONNA CAMARENA DO Location:[facility] Appointment Type: OV [facility] Evaluation + Plan note Future Appointments Appointment Date:09/14/2022 08:30:00 AM Scheduled Provider:KEYONNA CAMARENA DO Location:[facility] Appointment Type: OV [facility] Evaluation + Plan note Future Appointments Appointment Date:02/16/2023 08:00:00 AM Scheduled Provider:KEYONNA CAMARENA DO Location:[facility] Appointment Type:PC Wellness Medicare [facility] Evaluation + Plan note Future Appointments Appointment Date:03/14/2023 07:30:00 AM Scheduled Provider: Location:[facility] Appointment Type:[place] Mammogram Screening Bilateral w/ Josh Appointment Date:04/19/2023 08:00:00 AM Scheduled Provider:KEYONNA CAMARENA DO Location:[place] [facility] Appointment Type:PC OV Future Scheduled Tests Radiology* MA Mammo Screening Bilateral w/ Josh 03/14/23 [facility] Evaluation + Plan note Future Appointments Appointment Date:04/19/2023 08:00:00 AM Scheduled Provider:KEYONNA CAMARENA DO Location:[facility] Appointment Type: OV [facility] Evaluation + Plan note Future Appointments Appointment Date:06/21/2023 08:00:00 AM Scheduled Provider:KEYONNA CAMARENA DO Location:[facility] Appointment Type: OV [facility] Evaluation + Plan note Future Appointments Appointment Date:09/16/2023 09:15:00 AM Scheduled Provider: Location:[facility] Appointment Type:PC Nurse Injection Appointment Date:09/20/2023 08:30:00 AM Scheduled Provider:KEYONNA CAMARENA DO Location:[facility] Appointment Type:[facility] Future Scheduled Tests Laboratory* Thyroid Stimulating Hormone 06/21/23 * Free T4 06/21/23 * Free T3 06/21/23 [facility] Evaluation + Plan note Future Appointments Appointment Date:02/24/2024 09:00:00 AM Scheduled Provider:KEYONNA CAMARENA DO Location:[facility] Appointment Type:PC Wellness Medicare Future Scheduled Tests Laboratory* Thyroid Stimulating Hormone 02/19/24 * Lipid Profile 02/19/24 * Vitamin D Level 02/19/24 * Complete Metabolic Panel 02/19/24 [facility] Evaluation + Plan note Future Appointments Appointment Date:02/24/2024 09:00:00 AM Scheduled Provider:KEYONNA CAMARENA DO Location:[facility] Appointment Type:PC Wellness Medicare [facility] evaluation + Plan note Future Appointments Appointment Date:03/16/2024 02:00:00 PM Scheduled Provider: Location:[facility] Appointment Type:MA Mammogram Screening Bilateral w/ Josh Appointment Date:03/16/2024 02:30:00 PM Scheduled Provider: Location:[facility] Appointment Type:BD Bone Density DEXA Axial Skeleton Appointment Date:06/26/2024 08:00:00 AM Scheduled Provider:KEYONNA CAMARENA DO Location:[facility] Appointment Type: OV Future Scheduled Tests Radiology* MA Mammo Screening Bilateral w/ Josh 03/16/24 * BD Bone Density DEXA Axial Skeleton Adult (21 yrs or older) 03/16/24 [facility] evaluation + Plan note Future Appointments Appointment Date:06/26/2024 08:00:00 AM Scheduled Provider:KEYONNA CAMARENA DO Location:[facility] Appointment Type:[facility] Evaluation + Plan note Future Appointments Appointment Date:10/30/2024 08:30:00 AM Scheduled Provider:KEYONNA CAMARENA DO Location:[facility] Appointment Type:[facility] Future Scheduled Tests Laboratory* Basic Metabolic Panel 10/26/24 [facility] evaluation + Plan note Future Appointments Appointment Date:10/30/2024 08:30:00 AM Scheduled Provider:KEYONNA CAMARENA DO Location:[facility] Appointment Type: OV [facility] evaluation + Plan note Future Appointments Appointment Date:02/26/2025 09:00:00 AM Scheduled Provider:KEYONNA CAMARENA DO Location:[facility] Appointment Type:PC Wellness Medicare Future Scheduled Tests Laboratory* Thyroid Stimulating Hormone 03/02/25 * Complete Blood Count 03/02/25 * Lipid Profile 03/02/25 * Vitamin D Level 03/02/25 * Complete Metabolic Panel 03/02/25 [facility] Evaluation note* Diagnosis Onset Date Resolution Status Admit Date Chest pain acute November 06 8:06am [facility] Work Phone: Hospital course Narrative No data available for this section [facility] Hospital Discharge instructions No data available for this section [facility] Progress note No data available for this section [facility] Reason for referral (narrative)No reason for [facility] Chief Complaint and Reason for Visit Chief Complaint Dyspnea, unspecified LEFT HEART CATH CHEST PAIN LEFT HEART CATH CHEST PAIN LEFT HEART CATH CHEST PAIN LEFT HEART CATH CHEST PAIN PCI W/CORONARY STENTING 1 M FU PCI w/coronary stenting LEFT KNEE PAIN PCI w/coronary stenting PCI w/coronary stenting Reason for Visit History of coronary artery stent placement History of coronary artery stent placement Atherosclerotic heart disease of [place] coronary artery without angina pectoris Essential hypertension Hyperlipidemia Chief Complaint 1 M FU PCI w/coronary stenting LEFT KNEE PAIN PCI w/coronary stenting PCI w/coronary stenting PCI w/coronary stenting 3 M FU Reason for Visit History of coronary artery stent placement Atherosclerotic heart disease of [place] coronary artery without angina pectoris Essential hypertension Hyperlipidemia History of coronary artery stent placement Atherosclerotic heart disease of [place] coronary artery without angina pectoris Essential hypertension Hyperlipidemia Chief Complaint 1 Y FU E ORDERS/NOT ENTERED YET Reason for Visit Chest pain History of coronary artery stent placement Essential hypertension Hyperlipidemia Chief Complaint Admit Date PER PCP 2024 8:06 am Reason for Visit Admit Date Chest pain 2024 8:06 am Advance Directives No Advanced Directives Records Found Advance Directive Response Recorded Date/ Time Advance Directives on File No Decem 2020 9:08am Name of Medical Power of Recreational Leader Polly Frye March 16, 2021 2:50pm Advance Directives Yes March 16, 2021 9:08am Living Will Yes March 30, 2 021 3:23pm Power of Recreational Leader Yes March 30, 2021 3:23pm Advance Directive Response Recorded Date/ Time Advance Directives Yes March 16, 2021 9:08am Living Will Yes March 30, 2 021 3:23pm Power of Recreational Leader Yes March 30, 2021 3:23pm Advance Directive Response Recorded Date/ Time Advance Directives Yes March 16, 2021 8:08am Living Will Yes March 30 021 2:23pm Power of Recreational Leader Yes March 30, 2021 2:23pm Advance Directive Response Recorded Date/ Time Advance Directives Yes March 16, 2021 9:08am Summary Purpose Family History No Family History Records Found Additional Source Comments Goals (unrecognized section and content) Goals may be documented in a n alternate section Care Team (unrecognized sect ion and content) Care Team Personnel Name: Doretha Shoemaker Clerk Yasmine PT Position: P3 Scheduling - Hot Mill Supervisor Advanced Member Role: Other Name: ANSHU HOBSON MD Position: P3 Physician - Orthopedics Med Service: Active Provider Member Role: Orthopaedist Address: Address: [address] Name: KEYONNA CAMARENA DO Position: P4 Physician - Primary Care Med Service: Active Provider Member Role: Primary Care Physician Address: Address: [address] [place] [address] Name: ALBERT MARTÍNEZ MD Member Role: Sports Marketing Coordinator Address: Address: [address] [place] [address] Care Team Related Persons Name: MARC FRYERY Address: Home [id number] [place] [phone] Care Team Personnel Name: Doretha Shoemakerrroxy Underwood PT Position: P3 Scheduling - Hot Mill Supervisor Advanced Member Role: Other Name: ANSHU HOBSON MD Position: P3 Physician - Orthopedics Member Role: Orthopaedist Address: Address: [address] Name: KEYONNA CAMARENA DO Position: P4 Physician - Primary Care Member Role: Primary Care Physician Address: Address: [address] [place] [address] Name: ALBERT MARTÍNEZ MD Member Role: Sports Marketing Coordinator Address: Address: [address] [place] [address] Care Team Related Persons Name: POLLY FRYE Address: Home [address] [place], [place] [id number] [place] Care Team Personnel Name: Navid Veneer Glue Jointer Feedback Yasmine PT Position: P3 Scheduling - Hot Mill Supervisor Advanced Member Role: Other Name: ANSHU HOBSON MD Position: P3 Physician - Orthopedics Member Role: Orthopaedist Address: Address: [facility] [address] [place] [address]- [place] Name: KEYONNA CAMARENA DO Position: P4 Physician - Primary Care Member Role: Primary Care Physician Address: Address: [address] [place] [address] [place] [address]- [place] Name: ALBERT MARTÍNEZ MD Member Role: Sports Marketing Coordinator Address: Address: [address] [place] [address]- Care Team Related Persons Name: POLLY FRYE Address: [place] [address] [place], [place] [phone] [place] Care Teams (unrecognized sec tion and content) Team Status: Active Member Role Status Dates Dr. Keyonna Camarena DO Primary Care Provider Active Team Status: Inactive Member Role Status Dates Dr. Keyonna Camarena DO Primary Care Provider, Referri ng Provider Active Dr. Albert Martínez MD Attending Provider Active Team Status: Inactive Member Role Status Dates Dr. Keyonna Camarena DO Primary Care Provider Active Dr. Albert Martínez MD Attending Provider, Referring Pro vider Active Team Status: Active Member Role/Relationship Status Dates Dr. Keyonna Camarena DO Primary Care Provider Active Team Status: Inactive Member Role/Relationship Status Dates Dr. Keyonna Camarena DO Primary Care Provider Active Start: 2024 End: 2024 Dr. Keyonna Camarena DO Referring Provider Active Start: 2024 End: 2024 Julia Gutierrez MUNICIPAL CLERK, MUNICIPAL CLERK-C Attending Provider Active Start: 2024 End: 2024 INFORMATION SOURCE (unrecogn ized section and content) DATE CREATED AUTHOR 10/05/2023 [facility] ([place]) DATE CREATED AUTHOR AUTHOR'S ORGANIZ ATION 01/08/2024 [facility] DATE CREATED AUTHOR AUTHOR'S ORGANIZ ATION 10/31/2024 [facility] DATE CREATED AUTHOR AUTHOR'S ORGANLES ATION 11/07/2024 [facility] FOR RECORDS PERTAINING TO PATIENTS WHO ARE OR HAVE BEEN ENROLLED IN A CHEMICAL DEPENDENCY/SUBSTANCEABUSE PROGRAM, SOME INFORMATION MAY BE OMITTED. This clinical summary was aggregated from multiple sources. Caution should be exercised in using it in the provision of clinical care. This summary normalizes information from multiple sources, and as a consequence, information in this document may materially change the coding, format and clinical context of patient data. In addition, data may be omitted in some cases. CLINICAL DECISIONS SHOULD BE BASED ON THE PRIMARY CLINICAL RECORDS. [facility], [facility]. provides no warranty or guarantee of the accuracy or completeness of information in this document.
--- NOTE | 2024-11-19 09:47 | CL.D_ITS ---
Patient Name: SOREN MCDANIELS Study Date: 11/13/2024 Performing: Albert Matrínez MD Ht: 62 inches 157.48 cm : 1950 Wt: 142.2 lbs 64.41 kg Age: 74 Gender: female BSA: 1.65 PROCEDURE(S) PERFORMED DC01-(22081)LHC/COR/LV CLINICAL PROFILE AND INDICATIONS Indications: Suspected CAD Heart Failure: None Stress/Imaging Date: 10/21/24Stress Test with SPECT MPI: Negative CAD Presentations: Stable angina. CONCLUSIONS Moderate coronary artery disease noted in the circumflex artery diagonal branch of the LAD and mild disease noted in the right coronary artery RECOMMENDATIONS Aggressive risk factor modification and medical therapy. DESCRIPTION OF PROCEDURE The patient arrived to the procedure lab. The risks and benefits of the procedure as well as a full description of our services here and current unavailability of surgical backup were fully explained to the patient and/or their significant other prior to the catheterization. The Timeout was completed, verifying the correct patient and procedure. The patient's procedural site was prepped and draped in the usual fashion. Local anesthetic was given subcutaneously to right radial region with Lidocaine 2%. Using a modified Seldinger technique, arterial access was obtained via the right radial artery, a 6Fr sheath was inserted. Left Coronary Artery selective angiography was performed in multiple views using a 5 Fr. 4.0 Pearl catheter. Right Coronary Artery selective angiography was then performed in multiple views using a 5 Fr. 4.0 Pearl catheter. Left Ventriculography was performed in SOMERS projection using a 5 Fr. Pigtail catheter. LV to AO pullback pressures were then recorded.The arterial sheath was pulled and a TR Band was applied for hemostasis 19 ml of air CORONARY ANGIOGRAPHY DOMINANCE: Right Dominant LEFT HEART ASSESSMENT Left Ventricular Ejection Fraction: by LV Gram 65 % Normal LV wall motion Normal Left Ventricular systolic function LEFT MAIN: Angiographically normal LEFT ANTERIOR DESCENDING ARTERY: This is a small vessel and gives of a medium size diagonal branch which was previously stented with approximately 50 to 60% in-stent stenosis CIRCUMFLEX ARTERY: Medium size vessel with 3 obtuse marginal branches with no significant stenosis but the mid AV groove branch with a 60% stenosis giving of a large posterolateral branch RIGHT CORONARY ARTERY: Dominant right coronary artery with a proximal eccentric 30 to 40% stenosis. The rest the vessel has mild luminal irregularities. COMPLICATIONS No Complications PROCEDURE MEDICATIONS Versed 1 mg IV Fentanyl 50 mcg IV Versed 1 mg IV Oxygen: 2 L/min via nasal cannula Heparin given IA 11/13/2024 08:04:51 Verapamil 2.5mg, Ntg 100mcgs, 3000 units of Heparin given IA 11/13/2024 08:04:51 SUMMARY OF HEMODYNAMIC DATA Time AIR REST ECG 07:05:53 AO 156/61 (99) SA 08:14:49 AO 151/63 (99) 08:16:47 LV 179/16, 35 08:23:13 LV 172/10, 27 08:23:21 LV 160/15, 33 08:23:51 LV 153/8, 22 08:23:58 LVp 156/7, 22 08:24:02 AOp 168/62 (109) 08:24:10 Signed By Albert Martínez MD On 11/13/2024 08:42:32 Albert Martínez MD
== END 2024-11-13 10:45 | disposition home or self-care (01) ==
PROVIDERS: PCP Family Medicine; Referring Provider Internal Medicine Cardiovascular Disease; Visit Provider Internal Medicine Cardiovascular Disease
DX: T82.855A Stenosis of coronary artery stent, initial encounter (principal); G35 Multiple sclerosis; I25.118 Atherosclerotic heart disease of native coronary artery with other forms of angina pectoris; Y71.2 Prosthetic and other implants, materials and accessory cardiovascular devices associated with adverse incidents; R00.1 Bradycardia, unspecified; I10 Essential (primary) hypertension; E03.9 Hypothyroidism, unspecified; E78.2 Mixed hyperlipidemia; Z95.5 Presence of coronary angioplasty implant and graft
CPT/HCPCS: 93458; 99152; 99153; Q9967; C1769; C1894

== ENCOUNTER → 2025-02-05 | Outpatient (CLI) | payer MEDICARE, OTHER, SELFPAY ==
[2021-06-26 13:09] VITALS: BMI 26.2
[2025-02-05 11:05] LABS: Hematocrit 36.5 % (37-47); Hemoglobin 12.3 g/dL (12.0-15.0); Immature Granulocytes Count 0.020 X10^3/uL (0.0-0.0); Mean Corp Hgb Conc 33.7 g/dL (32-36); Mean Corpuscular Volume 95.5 fL (81-99); Mean Platelet Vol. 9.8 fl (6.2-12.0); NRBC Flagged by Analyzer 0 % (0-5); Platelet Count 317 K/mm3 (150-450); RBC Distribution Width CV 14.0 % (11.6-14.6); RBC Distribution Width SD 49.4 fl (35.1-43.9); Red Blood Count 3.82 M/mm3 (4.2-5.4); White Blood Count 7.0 K/mm3 (4.4-11.0)
[2025-02-05 11:52] LABS: AST(SGOT) 24 U/L (<=31); Alanine Aminotransfer ALT/SGPT 16 U/L (<=34); Albumin, Serum 4.3 g/dL (3.4-4.8); Alkaline Phosphatase 60 U/L (35-104); Bilirubin, Direct 0.18 mg/dL (0.00-0.30); Cholesterol 137 mg/dL (<=200); Globulin 1.9 g/dL (2.2-4.2); Low Density Lipoprotein Calc. 73 mg/dL; Triglycerides 85 mg/dL; Very Low Density Lipoprotein 17 mg/dL (5-40); cholesterol:hdl ratio screen 2.86
== END | disposition home or self-care (01) ==
LOC: LAB 10:07
PROVIDERS: PCP Family Medicine; Referring Provider Student in an Organized Health Care Education/Training Program; Visit Provider Student in an Organized Health Care Education/Training Program
DX: R53.83 Other fatigue (principal); E78.2 Mixed hyperlipidemia; E78.5 Hyperlipidemia, unspecified
CPT/HCPCS: 36415; 80061; 80076; 84443; 85025

== ENCOUNTER → 2025-02-15 | Outpatient (CLI) | payer MEDICARE, OTHER, SELFPAY ==
[2021-06-26 13:09] VITALS: BMI 26.2
--- NOTE | 2025-02-15 07:56 | CDU_ITS ---
Reason For Study VL/Carotid Duplex Ultrasound
== END | disposition home or self-care (01) ==
LOC: CVS 07:55
PROVIDERS: PCP Family Medicine; Referring Provider Student in an Organized Health Care Education/Training Program; Visit Provider Student in an Organized Health Care Education/Training Program
DX: R42 Dizziness and giddiness (principal)
CPT/HCPCS: 93880